=== PATIENT | female | born 1960 | race Caucasian/White ===

== ENCOUNTER 2017-03-30 15:22 | Inpatient (IN) | payer MEDICARE ==
[2017-03-30] MEDS ORDERED: DULCOLAX PR PRN (15:36)
[2017-03-30] MEDS ORDERED: MILK OF MAGNESIA PO PRN (15:36)
[2017-03-30] MEDS ORDERED: ZOFRAN IV PRN (15:36)
[2017-03-30] MEDS ORDERED: TYLENOL PO PRN (15:36)
[2017-03-30 19:19] LABS: Basophils % (Auto) 0.4 % (0.0-1.8); Eosinophils % (Auto) 0.1 % (0.0-4.3); Hematocrit 23.5 % (30.3-42.9); Lymphocytes # (Auto) 1.8 K/mm3 (1.2-5.4); Lymphocytes % (Auto) 20.8 % (13.4-35.0); Mean Corpuscular HGB Conc 34 % (30-34); Mean Corpuscular Hemoglobin 31 pg (28-32); Mean Corpuscular Volume 91 fl (79-97); Monocytes # (Auto) 0.4 K/mm3 (0.0-0.8); Monocytes % (Auto) 4.8 % (0.0-7.3); Platelet Count 436 K/mm3 (140-440); Red Blood Count 2.57 M/mm3 (3.65-5.03)
[2017-03-30 19:29] LABS: INR 1.46 (0.87-1.13)
[2017-03-30 19:46] LABS: Calcium 7.9 mg/dL (8.4-10.2)
[2017-03-30] MEDS: NORCO 5/325 PO PRN (20:00)
[2017-03-30] MEDS ORDERED: ROXICODONE PO PRN (20:38)
[2017-03-30] MEDS ORDERED: PROAIR IH PRN (20:38)
[2017-03-30] MEDS ORDERED: PERCOCET 5/325 PO PRN ×2 (20:38→21:47)
[2017-03-30] MEDS ORDERED: K-DUR PO ONE (20:57)
--- NOTE | 2017-03-30 20:59 | Event Note ---
Date: 03/30/17 56 year old female who has a hypercoagulable condition with HIV with RLE amputation with right groin infection and concern for patch and/or sartorius flap disruption. Hold Eliquis. Start heparin drip. Hypokalemia noted and nurse contacted me. Contacted Dr. Solano who will place orders for hypokalemia. Appreciate medical assistance. NPO after MN for operating room tomorrow.
[2017-03-30] MEDS ORDERED: PROVENTIL IH PRN (21:50)
[2017-03-30] MEDS: PLAVIX PO SCH (21:51)
[2017-03-30] MEDS: K-DUR PO SCH (21:52)
[2017-03-30] MEDS: LEVAQUIN PO SCH (21:52)
[2017-03-30] MEDS: HALFPRIN EC PO SCH (21:52)
[2017-03-30] MEDS: NEURONTIN PO SCH (21:53)
[2017-03-30] MEDS: HEPARIN/ 0.45% NACL-25,000 UNIT/500 ML 25,000 UNIT/500 ML BAG IV SCH (22:19)
[2017-03-30 22:29] LABS: Hematocrit 21.7 % (30.3-42.9); Hemoglobin 7.4 gm/dl (10.1-14.3)
[2017-03-30] MEDS ORDERED: MAGNESIUM SULFATE 1 GM in NACL 0.9% 50 ML IV ONE (23:00)
[2017-03-30] MEDS: TRICOR PO SCH (23:21)
[2017-03-31] MEDS: MS CONTIN ER PO PRN ×2 (00:05→20:43)
[2017-03-31] MEDS ORDERED: K-DUR PO ONE (02:27)
[2017-03-31] MEDS: NEURONTIN PO SCH ×3 (05:13→21:55)
--- NOTE | 2017-03-31 08:24 | Consultation ---
History of Present Illness - Reason for Consult Consult date: 03/30/17 Hyperkalemmia Requesting physician: MIGUEL BHATIA - History of Present Illness 56 YO Female with HIV, HLD, Hypercoagulable State on anticoagulation, PVD, Nicotine Dependence, CKD 3 admitted for vascular surgery. Consult placed by Dr. Bhatia for medical management. Pt seen and evaluated, and found to be in no acute distress. A review of patient labs revealed hypokalemia. Pt NPO after midnight for surgical intervention in AM. Pt denies fever, chills, CP, palpitations, NVD , syncope, BRBPR, or recent ill contacts. No reported nursing events. Past History Past Medical History: hyperlipidemia, other (PVD, Hypercoagulable State, ) Past Surgical History: Other ((bilateral lower extremity endovascular procedures , bilateral femoral endarterectomies and thrombectomies, RLE amputation) Social history: single, smoking. denies: alcohol abuse, prescription drug abuse Family history: hypertension Medications and Allergies Allergies Allergy/AdvReac Type Severity Reaction Status Date / Time No Known Allergies Allergy Verified 03/06/17 13:12 Home Medications Medication Instructions Recorded Confirmed Last Taken Type Albuterol Sulfate [Ventolin Hfa] 18 gm IH Q4H PRN 03/06/17 03/14/17 03/12/17 History Darunavir/Cobicistat [Prezcobix 1 each PO DAILY 03/06/17 03/21/17 03/14/17 06: 00 History 800 mg-150 mg Tablet] Dolutegravir Sodium [Tivicay] 50 mg PO DAILY 03/06/17 03/21/17 03/14/17 06:00 History Fenofibrate Nanocrystallized 145 mg PO DAILY 03/06/17 03/14/17 03/14/17 06:00 History [Fenofibrate] Fluticasone (Nf) [Flovent 220 1 puff INHALATION DAILY 03/06/17 03/14/17 History MCG/PUFF HFA] Lisinopril [Zestril TAB] 20 mg PO QDAY 03/06/17 03/14/17 03/14/17 06:00 History Morphine Sulfate [Morphine Sulfate 15 mg PO Q12HR 03/06/17 03/14/17 03/14/17 06: 00 History ER] NIFEdipine [Nifedipine ER] 60 mg PO DAILY 03/06/17 03/14/17 03/14/17 06:00 History Oxycodone HCl/Acetaminophen 1 each PO Q6HR PRN 03/06/17 03/14/17 03/14/17 06:00 History [Percocet 10/325 mg] lamiVUDine/ZIDOVUDINE [COMBIVIR 1 each PO BID 03/06/17 03/14/17 03/14/17 06:00 History 150-300 mg] Apixaban [Eliquis] 5 mg PO BID #60 tablet 03/09/17 03/14/17 03/14/17 06:00 Rx Gabapentin [Neurontin] 300 mg PO Q8HR #90 capsule 03/09/17 03/14/17 03/14/17 06: 00 Rx Aspirin EC [Aspirin Enteric Coated 81 mg PO QDAY tablet 03/24/17 Unknown Rx TAB] Clopidogrel [Plavix] 75 mg PO QDAY #30 tablet 03/24/17 Unknown Rx Levofloxacin [Levaquin TAB] 750 mg PO Q24H #14 tablet 03/24/17 Unknown Rx Potassium Chloride [K-Dur] 40 meq PO QDAY #14 tablet 03/24/17 Unknown Rx oxyCODONE /ACETAMINOPHEN [Percocet 1 tab PO Q4H PRN tablet 03/24/17 Unknown Rx 5/325 mg] Active Meds: Active Medications Acetaminophen (Tylenol) 650 mg PO Q4H PRN PRN Reason: Pain MILD(1-3)/Fever >100.5/LYNCH Acetaminophen/Hydrocodone Bitart ([place] 5/325) 2 each PO Q6H PRN PRN Reason: Pain, Moderate (4-6) Last Admin: 03/30/17 20:00 Dose: 2 each Albuterol (Proventil) 2.5 mg IH Q4HRT PRN PRN Reason: Shortness Of Breath Aspirin (Halfprin Ec) 81 mg PO QDAY [facility] Last Admin: 03/30/17 21:52 Dose: 81 mg Bisacodyl (Dulcolax) 10 mg [place] QDAY PRN PRN Reason: Constipation unrelieved by MOM Budesonide (Pulmicort) 0.5 mg IH Q12HRT [facility] Clopidogrel Bisulfate (Plavix) 75 mg PO QDAY [facility] Last Admin: 03/30/17 21:51 Dose: Not Given Fenofibrate (Tricor) 145 mg PO DAILY [facility] Last Admin: 03/30/17 23:21 Dose: 145 mg Gabapentin (Neurontin) 300 mg PO Q8HR [facility] Last Admin: 03/31/17 05:13 Dose: Not Given Sodium Chloride (Nacl 0.9% 1000 Ml) 1,000 mls @ 75 mls/hr IV DIRECT LANETTE Heparin Sodium/Sodium Chloride (Heparin/ 0.45% Nacl-25,000 Unit/500 Ml) 25,000 unit in 500 mls @ 20 mls/hr IV TITR LANETTE; 1,000 UNITS/HR PRN Reason: Protocol Last Admin: 03/30/17 22:19 Dose: 1,000 units/hr, 20 mls/hr Levofloxacin (Levaquin) 750 mg PO Q24HR [facility] Last Admin: 03/30/17 21:52 Dose: 750 mg Lisinopril (Zestril) 20 mg PO QDAY [facility] Magnesium Hydroxide (Milk Of Magnesia) 30 ml PO Q4H PRN PRN Reason: Constipation Miscellaneous Medication (Darunavir/Cobicistat [Prezcobix 800 Mg-150 Mg Tablet] ) 1 each PO DAILY [facility] Miscellaneous Medication (Dolutegravir Sodium [Tivicay]) 50 mg PO DAILY [facility] Miscellaneous Medication (Lamivudine/Zidovudine [Combivir 150-300 Mg]) 1 each PO BID [facility] Morphine Sulfate (Ms Contin Er) 15 mg PO BID PRN PRN Reason: Pain Last Admin: 03/31/17 00:05 Dose: 15 mg Nifedipine (Procardia Xl) 60 mg PO DAILY [facility] Ondansetron HCl (Zofran) 4 mg IV Q8H PRN PRN Reason: N/V unrelieved by Reglan Oxycodone HCl (Roxicodone) 5 mg PO Q6H PRN PRN Reason: Pain Oxycodone/Acetaminophen (Percocet 5/325) 1 tab PO Q4H PRN PRN Reason: Pain, Moderate (4-6) Oxycodone/Acetaminophen (Percocet 5/325) 1 tab PO Q4H PRN PRN Reason: Pain, Moderate (4-6) Potassium Chloride (K-Dur) 40 meq PO QDAY [facility] Last Admin: 03/30/17 21:52 Dose: 40 meq Review of Systems Constitutional: no weight loss, no weight gain, no fever Ears, nose, mouth and throat: no ear pain, no ear discharge, no tinnitis, no decreased hearing, no nose pain Breasts: no change in shape, no swelling, no mass Cardiovascular: no chest pain, no orthopnea, no palpitations, no rapid/ irregular heart beat, no edema, no syncope Respiratory: no cough, no cough with sputum, no excessive sputum, no hemoptysis , no shortness of breath Gastrointestinal: no nausea, no vomiting, no diarrhea, no constipation, no change in bowel habits Genitourinary Female: no dysmenorrhea, no pelvic pain, no flank pain, no menorrhagia, no dysuria Rectal: no pain, no incontinence, no bleeding Musculoskeletal: no neck stiffness, no neck pain, no shooting arm pain, no arm numbness/tingling, no low back pain Integumentary: no rash, no pruritis, no redness, no wounds, no jaundice, no boils Neurological: no head injury, no transient paralysis, no paralysis, no weakness , no parathesias Psychiatric: no anxiety, no memory loss, no change in sleep habits, no change in libido Endocrine: no cold intolerance, no heat intolerance, no polyphagia, no excessive thirst, no polydipsia, no polyuria Hematologic/Lymphatic: no easy bruising, no easy bleeding Allergic/Immunologic: no urticaria, no allergic rhinitis, no wheezing Exam - Constitutional General appearance: Present: no acute distress, well-nourished - EENT Eyes: Present: PERRL ENT: hearing intact, clear oral mucosa - Neck Neck: Present: supple, normal ROM - Respiratory Respiratory effort: normal Respiratory: bilateral: CTA - Cardiovascular Heart Sounds: Present: S1 & S2. Absent: rub, click - Extremities Extremities: pulses symmetrical, No edema Peripheral Pulses: within normal limits - Abdominal General gastrointestinal: Present: soft, non-tender, non-distended, normal bowel sounds Female genitourinary: Present: normal - Integumentary Integumentary: Present: clear, warm, dry - Musculoskeletal Musculoskeletal: gait normal, strength equal bilaterally - Psychiatric Psychiatric: appropriate mood/affect, intact judgment & insight - Neurologic Neurologic: CNII-XII intact, moves all extremities Results - Labs CBC & Chem 7: 03/30/17 21:56 03/31/17 06:12 Labs: Abnormal lab results 03/30/17 03/30/17 03/30/17 Range/Units 19:01 19:01 19:01 RBC 2.57 L (3.65-5.03) M/mm3 Hgb 8.0 L (10.1-14.3) gm/dl Hct 23.5 L (30.3-42.9) % RDW 16.0 H (13.2-15.2) % Seg Neutrophils % 73.9 H (40.0-70.0) % PT 18.5 H (12.2-14.9) Sec. INR 1.46 H (0.87-1.13) APTT (24.2-36.6) Sec. Heparin Anti-Xa Level (0.3-0.7) U.I./ml Potassium 2.8 L* (3.6-5.0) mmol/L Chloride (98-107) mmol/L Carbon Dioxide 14 L (22-30) mmol/L BUN 34 H (7-17) mg/dL Creatinine 2.0 H (0.7-1.2) mg/dL Glucose 105 H (65-100) mg/dL Calcium 7.9 L (8.4-10.2) mg/dL 03/30/17 03/30/17 03/30/17 Range/Units 19:01 21:56 23:26 RBC (3.65-5.03) M/mm3 Hgb 7.4 L (10.1-14.3) gm/dl Hct 21.7 L (30.3-42.9) % RDW (13.2-15.2) % Seg Neutrophils % (40.0-70.0) % PT (12.2-14.9) Sec. INR (0.87-1.13) APTT 47.9 H (24.2-36.6) Sec. Heparin Anti-Xa Level (0.3-0.7) U.I./ml Potassium 3.0 L (3.6-5.0) mmol/L Chloride (98-107) mmol/L Carbon Dioxide (22-30) mmol/L BUN (7-17) mg/dL Creatinine (0.7-1.2) mg/dL Glucose (65-100) mg/dL Calcium (8.4-10.2) mg/dL 03/31/17 03/31/17 Range/Units 06:12 06:12 RBC (3.65-5.03) M/mm3 Hgb (10.1-14.3) gm/dl Hct (30.3-42.9) % RDW (13.2-15.2) % Seg Neutrophils % (40.0-70.0) % PT (12.2-14.9) Sec. INR (0.87-1.13) APTT (24.2-36.6) Sec. Heparin Anti-Xa Level 1.57 H (0.3-0.7) U.I./ml Potassium (3.6-5.0) mmol/L Chloride 109.8 H (98-107) mmol/L Carbon Dioxide 16 L (22-30) mmol/L BUN 26 H (7-17) mg/dL Creatinine 1.4 H (0.7-1.2) mg/dL Glucose (65-100) mg/dL Calcium 8.0 L (8.4-10.2) mg/dL Assessment and Plan - Patient Problems (1) Hypokalemia Current Visit: Yes Status: Acute Plan to address problem: Repleted, IV magnesium, serial potassium levels, (2) HIV (human immunodeficiency virus infection) Current Visit: Yes Status: Acute Plan to address problem: Resume anitretroviral therapy, outpatient ID F/U care.
[2017-03-31] MEDS ORDERED: NACL 0.9% 500 ML 500 ML ONE (09:13)
[2017-03-31] MEDS ORDERED: MARCAINE 0.5% INFILTRATI ONE (09:13)
[2017-03-31] MEDS ORDERED: BACITRACIN ONE (09:13)
[2017-03-31] MEDS ORDERED: HEPARIN 10,000 UNITS/10 ML ONE (09:13)
[2017-03-31] MEDS: PULMICORT IH SCH ×2 (09:29→19:31)
--- NOTE | 2017-03-31 09:43 | Anesthesia Consultation ---
Anesthesia Consult and Med Hx Date of service: 03/31/17 - Airway Anesthetic Teeth Evaluation: Good ROM Head & Neck: Adequate Mental/Hyoid Distance: Adequate Mallampati Class: Class III Intubation Access Assessment: Probably Good - Pulmonary Exam CTA: Yes - Cardiac Exam Cardiac Exam: RRR - Pre-Operative Health Status ASA Pre-Surgery Classification: ASA4 Proposed Anesthetic Plan: General - Pulmonary Hx Asthma: Yes COPD: No - Cardiovascular System Hx Hypertension: Yes Hx Heart Attack/AMI: No Hx Pacemaker: No Hx Internal Defibrillator: No Hx Peripheral Vascular Disease: Yes (s/p thrombectomy, angioplasty) - Central Nervous System Hx Seizures: No Hx Psychiatric Problems: No - Endocrine Hx Renal Disease: Yes (stage 3. NOT ON DIALYSIS) Hx Liver Disease: Yes - Hematic Hx Anemia: Yes Hx Sickle Cell Disease: No - Additional Comments Anesthesia Medical History Comments: h/o HIV, HLD, lupus anticoagulant- hypercoaguable state on anticoag, PVD,CKD stage 3, anemia
--- NOTE | 2017-03-31 09:44 | Anesthesia Day of Surgery ---
Anesthesia Day of Surgery - Day of Surgery Patient Examined: Yes Patient H&P Reviewed: Yes Patient is NPO: Yes
[2017-03-31] MEDS ORDERED: XYLOCAINE MPF 2% ONE (09:46)
[2017-03-31] MEDS ORDERED: SUBLIMAZE ONE (09:46)
[2017-03-31] MEDS ORDERED: DIPRIVAN 10 MG/ML IV ONE (09:47)
[2017-03-31] MEDS: PLAVIX PO SCH (10:00)
[2017-03-31] MEDS: LEVAQUIN PO SCH (10:00)
[2017-03-31] MEDS: HALFPRIN EC PO SCH (10:00)
[2017-03-31] MEDS: ZESTRIL PO SCH (10:00)
[2017-03-31] MEDS ORDERED: FLUTICASONE INHALATION SCH (10:00)
[2017-03-31] MEDS: PROCARDIA XL PO SCH (10:00)
[2017-03-31] MEDS ORDERED: NACL 0.9% 500 ML 500 ML IV ONE (10:13)
[2017-03-31] MEDS ORDERED: NACL 0.9% IR ONE ×2 (11:03→11:31)
[2017-03-31] MEDS ORDERED: NEO SYNEPHRINE/NS Syringe(OR USE) IV ONE (12:21)
--- NOTE | 2017-03-31 12:22 | Post Operative Note ---
Pre-op diagnosis: infected, necrotic right groin incision (sequelae postoperative wound infec Post-op diagnosis: same Findings: Partial necrosis of the sartorius flap successfully debrided back to viable tissue. Large soft tissue hematoma and necrotic fat fascia and muscle right groin. The artery appears covered with granulation tissue. No evidence for direct connection to the artery did successful debridement of necrotic tissue retained hematoma muscle and fascia leaving an 18 I 8 x 5 cm defect in the right groin. Remaining tissue appears viable. Procedure: Debridement of skin/subcutaneous tissue/muscle and fascia right groin 18 cm x 8 cm x 5 cm defect with pulse lavage irrigation Anesthesia: MARYSOL Surgeon: CECI FIGUEREDO Clinic Clerk: RAQUEL HUERTA Estimated blood loss: 50-100ml Pathology: list (old retained hematoma, necrotic muscle fascia soft tissue and skin) Specimen disposition: to lab Condition: stable Disposition: floor
[2017-03-31] MEDS ORDERED: ZOFRAN ONE (12:24)
[2017-03-31] MEDS: DILAUDID IV PRN ×3 (13:03→13:26)
--- NOTE | 2017-03-31 13:18 | Operative Report ---
PREOPERATIVE DIAGNOSIS: Necrotic right groin with sequelae from surgical site infection. POSTOPERATIVE DIAGNOSIS: Necrotic right groin with sequelae from surgical site infection. OPERATIVE PROCEDURE: 1.Debridement of skin, subcutaneous tissue, muscle and fascia. An 8 x 18 x 5 cm by volume groin defect. 2.Pulse irrigation lavage. SURGEON: Pérze Nj MD MEDICAL MANAGEMENT TRAINER: Daniel Villatoro PA-C. ANESTHESIA: General. ESTIMATED BLOOD LOSS: Less 100 mL. The patient's condition improved. COMPLICATIONS: None. INSTRUMENT COUNTS: Correct. SPECIMENS: Necrotic material and muscle sent for deep tissue cultures. SURGICAL DETAILS: The patient in supine position. After adequate levels of general endotracheal anesthesia was obtained the right groin and the entire extremity was then prepped and draped using standard sterile technique. Using a combination of sharp and blunt dissection including Metzenbaums 15-blade, I was able to carefully tease off the tissue without initiating any more bleeding. Large amount of retained hematoma was removed. sartorius muscle was debrided back to viable tissue. I sequentially went throughout the entire incision getting progressively deeper with removal of all thrombus and soft tissue. The base of the incision appeared to be granulating throughout. I was able to palpate a proximal common femoral artery pulse near the apex of the incision and could listen by Doppler to the level of the superficial femoral artery occlusion. This entire area was covered with dense granulation tissue and did not unroof it down to the graft, cut into the vein graft for fear of uncovering and precipitating a hemorrhage that would be difficult to control if at all. There was one little area that was worrisome for previous bleed, but after manipulating this area completely and removing any necrotic material I could not convince myself that it communicated directly with the vein patch below. There was no arterial pulse or Doppler signal underneath this area and I felt that it did not represent an active risk of bleeding. I was concerned that if I did uncover the artery from all the surrounding inflammatory tissue that it would potentially open enough for the need to replace the entire vessel and we did not have a viable alternative to what she had at this point. 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 I thus left this one little area alone and did not see any active bleeding throughout the remainder of the procedure. Again, radical debridement of all necrotic material was performed and that material was sent for deep tissue cultures. I then used approximately 2 liters of pulse lavage irrigation until the entire area was beefy red. Pictures were taken. I then applied a wound VAC to the area and then the patient was extubated and returned to recovery in stable condition having tolerated the procedure well. Sponge and needle counts were correct. JOB# [id number] RAFAELA/NTS
--- NOTE | 2017-03-31 13:50 | Post Anesthesia Evaluation ---
- Post Anesthesia Evaluation Patient Participated: Yes Airway Patent: Yes Stable Respiratory Function: Yes Nausea/Vomiting: No Temp > 96.8F: Yes Pain Manageable: Yes Adequeate Hydration: Yes Anesthesia Complications: No
[2017-03-31 14:06] LABS: Hematocrit 20.8 % (30.3-42.9); Hemoglobin 6.9 gm/dl (10.1-14.3); Mean Corpuscular HGB Conc 33 % (30-34); Mean Corpuscular Hemoglobin 31 pg (28-32); Mean Corpuscular Volume 95 fl (79-97); Platelet Count 342 K/mm3 (140-440); Red Blood Count 2.19 M/mm3 (3.65-5.03); Red Cell Distribution Width 16.9 % (13.2-15.2)
[2017-03-31] MEDS: TRICOR PO SCH (14:30)
--- NOTE | 2017-03-31 16:03 | Progress Note ---
Assessment and Plan Assessment and plan: 56 YO Female with HIV, HLD, Hypercoagulable State on anticoagulation, PVD, Nicotine Dependence, CKD 3 admitted for vascular surgery. Consult placed by Dr. Reyes for medical management. On admission labs revealed hypokalemia. went through a successful incision of infected, necrotic right groin incision noted to have a Large soft tissue hematoma and necrotic fat fascia and muscle right groin. The artery appears covered with granulation tissue. Infected Necrotic Groin * s/p excision. Vascular following, Wound vac in place. * Pain control per vascular Right BKA * Mears in place * Fall precautions Severe Blood loss Anemia * Transfuse PRBC 2 units. Recheck H/H Hypokalemia * Replaced and resolved HLD * Continue statin HIV * Continue meds Hypercoagulable state * Resume Heparin drip per vascular. Monitor H/H Severe PVD * As noted above. DVT/GI prophy History Interval history: Patient seen and examined this afternoon in no acute distress at this time. Still reports some pain. Wound VAC is in place did have some low blood counts which were replaced. Hospitalist Physical - Physical exam Narrative exam: VITAL SIGNS: Reviewed. GENERAL: The patient appeared well nourished and normally developed. Vital signs as documented. HEAD: No signs of head trauma. EYES: Pupils are equal. Extraocular motions intact. EARS: Hearing grossly intact. MOUTH: Oropharynx is normal. NECK: No adenopathy, no JVD. CHEST: Chest with clear breath sounds bilaterally. No wheezes, rales, or rhonchi. CARDIAC: Regular rate and rhythm. S1 and S2, without murmurs, gallops, or rubs. VASCULAR: No Edema. Peripheral pulses normal and equal in all extremities. ABDOMEN: Soft, without detectable tenderness. No sign of distention. No rebound or guarding, and no masses palpated. Bowel Sounds normal. MUSCULOSKELETAL: Right BKA. Extremities without clubbing, cyanosis or edema. NEUROLOGIC EXAM: Alert and oriented x 3. No focal sensory or strength deficits. Speech normal. Follows commands. PSYCHIATRIC: Mood normal. SKIN: Groin dressing in place. Right BKA sutures intact - Constitutional Vitals: Temp Pulse Resp BP Pulse Ox 98.1 F 97 H 18 111/60 98 03/31/17 13:45 03/31/17 13:45 03/31/17 13:45 03/31/17 13:45 03/31/17 13:45 General appearance: Present: no acute distress, well-nourished Results - Labs CBC & Chem 7: 03/31/17 13:44 03/31/17 06:12 Labs: Laboratory Last Values WBC 6.8 K/mm3 (4.5-11.0) 03/31/17 13:44 RBC 2.19 M/mm3 (3.65-5.03) L 03/31/17 13:44 Hgb 6.9 gm/dl (10.1-14.3) L 03/31/17 13:44 Hct 20.8 % (30.3-42.9) L 03/31/17 13:44 MCV 95 fl (79-97) 03/31/17 13:44 MCH 31 pg (28-32) 03/31/17 13:44 MCHC 33 % (30-34) 03/31/17 13:44 RDW 16.9 % (13.2-15.2) H 03/31/17 13:44 Plt Count 342 K/mm3 (140-440) 03/31/17 13:44 Lymph % (Auto) 20.8 % (13.4-35.0) 03/30/17 19:01 [place] % (Auto) 4.8 % (0.0-7.3) 03/30/17 19:01 Eos % (Auto) 0.1 % (0.0-4.3) 03/30/17 19:01 Baso % (Auto) 0.4 % (0.0-1.8) 03/30/17 19:01 Lymph # 1.8 K/mm3 (1.2-5.4) 03/30/17 19:01 [place] # 0.4 K/mm3 (0.0-0.8) 03/30/17 19:01 Eos # 0.0 K/mm3 (0.0-0.4) 03/30/17 19:01 Baso # 0.0 K/mm3 (0.0-0.1) 03/30/17 19:01 Seg Neutrophils % 73.9 % (40.0-70.0) H 03/30/17 19:01 Seg Neutrophils # 6.4 K/mm3 (1.8-7.7) 03/30/17 19:01 PT 18.5 Sec. (12.2-14.9) H 03/30/17 19:01 INR 1.46 (0.87-1.13) H 03/30/17 19:01 APTT 47.9 Sec. (24.2-36.6) H 03/30/17 19:01 Heparin Anti-Xa Level 1.57 U.I./ml (0.3-0.7) H 03/31/17 06:12 Sodium 140 mmol/L (137-145) 03/31/17 06:12 Potassium 3.8 mmol/L (3.6-5.0) D 03/31/17 06:12 Chloride 109.8 mmol/L (98-107) H 03/31/17 06:12 Carbon Dioxide 16 mmol/L (22-30) L 03/31/17 06:12 Anion Gap 18 mmol/L 03/31/17 06:12 BUN 26 mg/dL (7-17) H 03/31/17 06:12 Creatinine 1.4 mg/dL (0.7-1.2) H 03/31/17 06:12 Estimated GFR 39 ml/min 03/31/17 06:12 BUN/Creatinine Ratio 19 % 03/31/17 06:12 Glucose 81 mg/dL (65-100) 03/31/17 06:12 Calcium 8.0 mg/dL (8.4-10.2) L 03/31/17 06:12 Prealbumin 0.090 g/L (0.200-0.400) L 03/31/17 13:44 Blood Type O POSITIVE 03/31/17 10:12 Antibody Screen Negative 03/31/17 10:12 Crossmatch See Detail 03/31/17 10:12
[2017-03-31] MEDS ORDERED: NACL 0.9% 500 ML 0 ML ONE (16:30)
[2017-03-31] MEDS: HEPARIN/ 0.45% NACL-25,000 UNIT/500 ML 25,000 UNIT/500 ML BAG IV SCH (23:30)
[2017-04-01] MEDS: NORCO 5/325 PO PRN ×2 (00:07→09:02)
[2017-04-01] MEDS: K-DUR PO SCH ×2 (02:51→09:04)
[2017-04-01] MEDS: NEURONTIN PO SCH ×3 (05:22→22:08)
[2017-04-01] MEDS: NACL 0.9% 1000 ML 1,000 ML IV SCH ×2 (05:22→18:17)
[2017-04-01 07:37] LABS: Hematocrit 28.6 % (30.3-42.9); Hemoglobin 9.6 gm/dl (10.1-14.3); Mean Corpuscular HGB Conc 34 % (30-34); Mean Corpuscular Hemoglobin 31 pg (28-32); Mean Corpuscular Volume 92 fl (79-97); Platelet Count 312 K/mm3 (140-440); Red Blood Count 3.09 M/mm3 (3.65-5.03); Red Cell Distribution Width 16.1 % (13.2-15.2)
[2017-04-01 07:54] LABS: Calcium 8.2 mg/dL (8.4-10.2)
[2017-04-01] MEDS: PULMICORT IH SCH ×3 (08:00→21:21)
[2017-04-01] MEDS: PLAVIX PO SCH (09:01)
[2017-04-01] MEDS: HALFPRIN EC PO SCH (09:01)
[2017-04-01] MEDS: TRICOR PO SCH (09:02)
[2017-04-01] MEDS: MS CONTIN ER PO PRN ×2 (09:02→22:07)
[2017-04-01] MEDS: PROCARDIA XL PO SCH (09:02)
[2017-04-01] MEDS: LEVAQUIN PO SCH (09:02)
[2017-04-01] MEDS: ELIQUIS PO SCH ×2 (09:03→22:06)
[2017-04-01] MEDS: ZESTRIL PO SCH (09:03)
--- NOTE | 2017-04-01 15:46 | Progress Note ---
Assessment and Plan The patient is doing well postoperatively. She will need discharge to a rehabilitation facility. The patient is not currently receiving her HIV medications. She does have packets of medications which do include her HIV home meds. These will need to be sent to the pharmacy so her HIV meds may be given to her. Subjective Date of service: 04/01/17 Interval history: Patient seen and examined. Her wound VAC is in place and she feels much better. She is still on a heparin drip. We'll transition to Eliquis tomorrow. She will likely need discharge to either long or short-term rehabilitation facility. Objective - Constitutional Vitals: Vital Signs - 12hr 04/01/17 04/01/17 05:03 08:25 Temperature 98.5 F 99.0 F Pulse Rate 94 H 101 H Respiratory 16 20 Rate Blood Pressure 147/75 122/59 O2 Sat by Pulse 99 100 Oximetry General appearance: Present: no acute distress - EENT Eyes: PERRL ENT: hearing intact - Neck Neck: supple, normal ROM - Respiratory Respiratory effort: normal - Breasts Breasts: deferred Extremities: abnormal - Gastrointestinal General gastrointestinal: Present: deferred - Genitourinary Female genitourinary: deferred - Integumentary Integumentary: clear - Musculoskeletal Musculoskeletal: strength equal bilaterally - Psychiatric Psychiatric: appropriate mood/affect, cooperative - Labs CBC & Chem 7: 04/01/17 07:10 04/01/17 07:10 Labs: Abnormal lab results 03/31/17 03/31/17 04/01/17 Range/Units 10:12 13:44 07:10 RBC 3.09 L (3.65-5.03) M/mm3 Hgb 9.6 L (10.1-14.3) gm/dl Hct 28.6 L D (30.3-42.9) % RDW 16.1 H (13.2-15.2) % Chloride (98-107) mmol/L Carbon Dioxide (22-30) mmol/L BUN (7-17) mg/dL Calcium (8.4-10.2) mg/dL Prealbumin 0.090 L (0.200-0.400) g/L Crossmatch See Detail 04/01/17 Range/Units 07:10 RBC (3.65-5.03) M/mm3 Hgb (10.1-14.3) gm/dl Hct (30.3-42.9) % RDW (13.2-15.2) % Chloride 110.5 H (98-107) mmol/L Carbon Dioxide 16 L (22-30) mmol/L BUN 18 H (7-17) mg/dL Calcium 8.2 L (8.4-10.2) mg/dL Prealbumin (0.200-0.400) g/L Crossmatch
--- NOTE | 2017-04-01 17:04 | Progress Note ---
Assessment and Plan Assessment and Plan Assessment and plan: 56 YO Female with HIV, HLD, Hypercoagulable State on anticoagulation, PVD, Nicotine Dependence, CKD 3 admitted for vascular surgery. Consult placed by Dr. Reyes for medical management. On admission labs revealed hypokalemia. went through a successful incision of infected, necrotic right groin incision noted to have a Large soft tissue hematoma and necrotic fat fascia and muscle right groin. The artery appears covered with granulation tissue. Infected Necrotic Groin * s/p excision. Vascular following, Wound vac in place. * Pain control per vascular * Wound vac ordered Right BKA * Michelle in place * Fall precautions Severe Blood loss Anemia * Transfuse PRBC 2 units. Recheck H/H Hypokalemia * Replaced and resolved HLD * Continue statin HIV * Continue meds Hypercoagulable state * Resume Heparin drip per vascular. Monitor H/H Severe PVD * As noted above. DVT/GI prophy Subjective Date of service: 04/01/17 Principal diagnosis: Rt Inguinal Necrotic infected lesion Interval history: Sx better Objective - Constitutional Vitals: Vital Signs - 12hr 04/01/17 08:25 Temperature 99.0 F Pulse Rate 101 H Respiratory 20 Rate Blood Pressure 122/59 O2 Sat by Pulse 100 Oximetry General appearance: Present: no acute distress, well-nourished - EENT Eyes: PERRL, EOM intact ENT: hearing intact, clear oral mucosa Ears: bilateral: normal - Neck Neck: supple, normal ROM - Respiratory Respiratory effort: normal Respiratory: bilateral: CTA - Breasts Breasts: normal - Cardiovascular Rhythm: regular Heart Sounds: Present: S1 & S2. Absent: gallop, rub Extremities: pulses intact, No edema, normal color, Full ROM - Gastrointestinal General gastrointestinal: Present: soft, non-tender, non-distended, normal bowel sounds - Genitourinary Female genitourinary: normal - Integumentary Integumentary: clear, warm, dry - Musculoskeletal Musculoskeletal: 1, strength equal bilaterally - Neurologic Neurologic: moves all extremities - Psychiatric Psychiatric: memory intact, appropriate mood/affect, intact judgment & insight - Labs CBC & Chem 7: 04/03/17 06:39 04/03/17 06:39 Labs: Abnormal lab results 03/31/17 04/01/17 04/01/17 Range/Units 10:12 07:10 07:10 RBC 3.09 L (3.65-5.03) M/mm3 Hgb 9.6 L (10.1-14.3) gm/dl Hct 28.6 L D (30.3-42.9) % RDW 16.1 H (13.2-15.2) % Chloride 110.5 H (98-107) mmol/L Carbon Dioxide 16 L (22-30) mmol/L BUN 18 H (7-17) mg/dL Calcium 8.2 L (8.4-10.2) mg/dL Crossmatch See Detail
[2017-04-02 06:04] LABS: Basophils % (Auto) 0.6 % (0.0-1.8); Eosinophils # (Auto) 0.1 K/mm3 (0.0-0.4); Eosinophils % (Auto) 0.9 % (0.0-4.3); Hematocrit 26.5 % (30.3-42.9); Hemoglobin 8.9 gm/dl (10.1-14.3); Lymphocytes # (Auto) 2.2 K/mm3 (1.2-5.4); Lymphocytes % (Auto) 33.9 % (13.4-35.0); Mean Corpuscular HGB Conc 34 % (30-34); Mean Corpuscular Hemoglobin 31 pg (28-32); Mean Corpuscular Volume 92 fl (79-97); Monocytes # (Auto) 0.4 K/mm3 (0.0-0.8); Platelet Count 280 K/mm3 (140-440); Red Blood Count 2.88 M/mm3 (3.65-5.03); Red Cell Distribution Width 16.1 % (13.2-15.2)
[2017-04-02 06:41] LABS: Albumin 2.1 g/dL (3.9-5); BUN/Creatinine Ratio 13; Blood Urea Nitrogen 12 mg/dL (7-17); Calcium 7.7 mg/dL (8.4-10.2); Hemolysis Index 91
[2017-04-02] MEDS: NACL 0.9% 1000 ML 1,000 ML IV SCH ×2 (07:23→20:41)
[2017-04-02] MEDS: NEURONTIN PO SCH ×3 (07:23→22:57)
[2017-04-02 07:26] LABS: Alanine Aminotransferase 5 units/L (7-56)
[2017-04-02] MEDS: HALFPRIN EC PO SCH (09:44)
[2017-04-02] MEDS: ZESTRIL PO SCH (09:44)
[2017-04-02] MEDS: LEVAQUIN PO SCH (09:44)
[2017-04-02] MEDS: PLAVIX PO SCH (09:44)
[2017-04-02] MEDS: PROCARDIA XL PO SCH (09:45)
[2017-04-02] MEDS: TRICOR PO SCH (09:45)
[2017-04-02] MEDS: K-DUR PO SCH (09:45)
[2017-04-02] MEDS: PULMICORT IH SCH ×2 (10:34→20:35)
--- NOTE | 2017-04-02 11:57 | Progress Note ---
Assessment and Plan Patient is doing well following debridement and placement of a wound VAC. She will need referral to long-term or short-term rehabilitation and appropriate wound care following her discharge. She is currently awaiting placement. Subjective Date of service: 04/02/17 Interval history: Doing well, no complaints. Objective - Constitutional Vitals: Vital Signs - 12hr 04/02/17 07:41 Temperature 98.3 F Pulse Rate 82 Respiratory 18 Rate Blood Pressure 110/52 O2 Sat by Pulse 99 Oximetry General appearance: Present: no acute distress - EENT Eyes: PERRL, EOM intact ENT: hearing intact - Neck Neck: supple, normal ROM - Respiratory Respiratory effort: normal Extremities: abnormal Extremity abnormal: edema - Gastrointestinal General gastrointestinal: Present: deferred - Neurologic Neurologic: no focal deficits - Psychiatric Psychiatric: appropriate mood/affect, cooperative - Labs CBC & Chem 7: 04/02/17 05:33 04/02/17 05:33 Labs: Abnormal lab results 04/02/17 04/02/17 04/02/17 Range/Units 05:33 05:33 06:42 RBC 2.88 L (3.65-5.03) M/mm3 Hgb 8.9 L (10.1-14.3) gm/dl Hct 26.5 L (30.3-42.9) % RDW 16.1 H (13.2-15.2) % Heparin Anti-Xa Level > 2.00 H (0.3-0.7) U.I./ml Chloride 110.4 H (98-107) mmol/L Carbon Dioxide 16 L (22-30) mmol/L Calcium 7.7 L (8.4-10.2) mg/dL ALT 5 L (7-56) units/L Total Protein 5.1 L (6.3-8.2) g/dL Albumin 2.1 L (3.9-5) g/dL
[2017-04-02] MEDS: ELIQUIS PO SCH ×2 (13:23→22:57)
[2017-04-02] MEDS: NORCO 5/325 PO PRN ×2 (13:23→20:41)
--- NOTE | 2017-04-02 16:07 | Progress Note ---
Assessment and Plan Assessment and Plan Assessment and plan: 56 YO Female with HIV, HLD, Hypercoagulable State on anticoagulation, PVD, Nicotine Dependence, CKD 3 admitted for vascular surgery. Consult placed by Dr. Reyes for medical management. On admission labs revealed hypokalemia. went through a successful incision of infected, necrotic right groin incision noted to have a Large soft tissue hematoma and necrotic fat fascia and muscle right groin. The artery appears covered with granulation tissue. Infected Necrotic Groin * s/p excision. Vascular following, Wound vac in place. * Pain control per vascular * Wound vac in place Right BKA * Shelby in place * Fall precautions Severe Blood loss Anemia * Transfused PRBC 2 units Hypokalemia * Replaced and resolved HLD * Continue statin HIV * Continue meds Hypercoagulable state * Resume Heparin drip per vascular. Monitor H/H Severe PVD * As noted above. DVT/GI prophy Discharge plan-to SNF for wound care and PT/OT Case management consult requested Subjective Date of service: 04/02/17 Principal diagnosis: Rt Groin infected necrotic lesion Interval history: Sx better Objective - Constitutional Vitals: Vital Signs - 12hr 04/02/17 07:41 Temperature 98.3 F Pulse Rate 82 Respiratory 18 Rate Blood Pressure 110/52 O2 Sat by Pulse 99 Oximetry General appearance: Present: no acute distress, well-nourished - EENT Eyes: PERRL, EOM intact ENT: hearing intact, clear oral mucosa Ears: bilateral: normal - Neck Neck: supple, normal ROM - Respiratory Respiratory effort: normal Respiratory: bilateral: CTA - Breasts Breasts: normal - Cardiovascular Rhythm: regular Heart Sounds: Present: S1 & S2. Absent: gallop, rub Extremities: pulses intact, No edema, normal color, Full ROM - Gastrointestinal General gastrointestinal: Present: soft, non-tender, non-distended, normal bowel sounds - Genitourinary Female genitourinary: normal - Integumentary Integumentary: clear, warm, dry - Musculoskeletal Musculoskeletal: 1, strength equal bilaterally - Neurologic Neurologic: moves all extremities - Psychiatric Psychiatric: memory intact, appropriate mood/affect, intact judgment & insight - Labs CBC & Chem 7: 04/03/17 06:39 04/03/17 06:39 Labs: Abnormal lab results 02/03/18 02/03/18 02/03/18 Range/Units 05:33 05:33 06:42 RBC 2.88 L (3.65-5.03) M/mm3 Hgb 8.9 L (10.1-14.3) gm/dl Hct 26.5 L (30.3-42.9) % RDW 16.1 H (13.2-15.2) % Heparin Anti-Xa Level > 2.00 H (0.3-0.7) U.I./ml Chloride 110.4 H (98-107) mmol/L Carbon Dioxide 16 L (22-30) mmol/L Calcium 7.7 L (8.4-10.2) mg/dL ALT 5 L (7-56) units/L Total Protein 5.1 L (6.3-8.2) g/dL Albumin 2.1 L (3.9-5) g/dL
[2017-04-02] MEDS: LAMIVUDINE PO SCH (22:57)
[2017-04-02] MEDS: ZIDOVUDINE PO SCH (22:57)
[2017-04-03] MEDS: NEURONTIN PO SCH ×3 (06:34→23:43)
[2017-04-03] MEDS: NORCO 5/325 PO PRN ×3 (07:03→23:37)
[2017-04-03 07:17] LABS: Basophils % (Auto) 0.6 % (0.0-1.8); Eosinophils # (Auto) 0.1 K/mm3 (0.0-0.4); Eosinophils % (Auto) 1.1 % (0.0-4.3); Hemoglobin 9.4 gm/dl (10.1-14.3); Lymphocytes # (Auto) 1.7 K/mm3 (1.2-5.4); Lymphocytes % (Auto) 30.1 % (13.4-35.0); Mean Corpuscular HGB Conc 34 % (30-34); Mean Corpuscular Hemoglobin 31 pg (28-32); Mean Corpuscular Volume 92 fl (79-97); Monocytes # (Auto) 0.3 K/mm3 (0.0-0.8); Monocytes % (Auto) 5.4 % (0.0-7.3); Platelet Count 275 K/mm3 (140-440); Red Blood Count 3.05 M/mm3 (3.65-5.03)
[2017-04-03 07:36] LABS: BUN/Creatinine Ratio 13; Blood Urea Nitrogen 10 mg/dL (7-17); Calcium 7.9 mg/dL (8.4-10.2); Hemolysis Index 1
--- NOTE | 2017-04-03 10:13 | Progress Note ---
Assessment and Plan Patient will need to have appropriate wound care with scheduled wound VAC changes. She will need placement in a long-term rehabilitation facility. Subjective Date of service: 04/03/17 Interval history: Patient complaining of right leg pain. Wound VAC with broken seal. Her wound VAC was re-sealed with Tegaderm along the areas of leakage and once re-applied, the patient's leg pain went away. The patient also complains of left using from her incision. Her bandage was removed and 2 punctate areas of miniscule drainage were noted on the bandage. The underlying incision is soft with no expressible material. Objective - Constitutional Vitals: Vital Signs - 12hr 04/02/17 04/03/17 23:27 08:11 Temperature 99.7 F H 99.0 F Pulse Rate 89 84 Respiratory 18 16 Rate Blood Pressure 127/60 159/72 O2 Sat by Pulse 97 97 Oximetry General appearance: Present: no acute distress - EENT Eyes: PERRL, EOM intact ENT: hearing intact Ears: bilateral: normal - Neck Neck: supple, normal ROM - Respiratory Respiratory effort: normal - Breasts Breasts: deferred Extremities: abnormal - Gastrointestinal General gastrointestinal: Present: deferred - Genitourinary Female genitourinary: deferred - Neurologic Neurologic: no focal deficits - Psychiatric Psychiatric: appropriate mood/affect, cooperative - Labs CBC & Chem 7: 04/03/17 06:39 04/03/17 06:39 Labs: Abnormal lab results 04/03/17 04/03/17 Range/Units 06:39 06:39 RBC 3.05 L (3.65-5.03) M/mm3 Hgb 9.4 L (10.1-14.3) gm/dl Hct 28.0 L (30.3-42.9) % RDW 16.0 H (13.2-15.2) % Chloride 111.5 H (98-107) mmol/L Carbon Dioxide 18 L (22-30) mmol/L Calcium 7.9 L (8.4-10.2) mg/dL
[2017-04-03] MEDS: NON-FORMULARY (Dolutegravir Sodium [Tivicay] 50 MG) PO SCH ×5 (10:44→10:51)
[2017-04-03] MEDS: NON-FORMULARY (Darunavir/Cobicistat [Prezcobix 800 Mg-150 Mg Tablet] 1 EACH) PO SCH ×4 (10:44→10:49)
[2017-04-03] MEDS: ZIDOVUDINE PO SCH ×11 (10:45→23:40)
[2017-04-03] MEDS: LAMIVUDINE PO SCH ×11 (10:45→23:40)
[2017-04-03] MEDS: K-DUR PO SCH (10:52)
[2017-04-03] MEDS: ELIQUIS PO SCH ×2 (10:52→23:38)
[2017-04-03] MEDS: PROCARDIA XL PO SCH (10:52)
[2017-04-03] MEDS: TRICOR PO SCH (10:52)
[2017-04-03] MEDS: ZESTRIL PO SCH (10:52)
[2017-04-03] MEDS: PLAVIX PO SCH (10:52)
[2017-04-03] MEDS: HALFPRIN EC PO SCH (10:52)
[2017-04-03] MEDS: LEVAQUIN PO SCH (10:52)
[2017-04-03] MEDS: NACL 0.9% 1000 ML 1,000 ML IV SCH (11:02)
[2017-04-03] MEDS: PULMICORT IH SCH ×2 (13:09→19:44)
--- NOTE | 2017-04-03 18:17 | Progress Note ---
Assessment and Plan Assessment and Plan Assessment and plan: 56 YO Female with HIV, HLD, Hypercoagulable State on anticoagulation, PVD, Nicotine Dependence, CKD 3 admitted for vascular surgery. Consult placed by Dr. Reyes for medical management. On admission labs revealed hypokalemia. went through a successful incision of infected, necrotic right groin incision noted to have a Large soft tissue hematoma and necrotic fat fascia and muscle right groin. The artery appears covered with granulation tissue. Infected Necrotic Groin * s/p excision. Vascular following, Wound vac in place. * Pain control per vascular * Wound vac ordered Right BKA * Michelle in place * Fall precautions Severe Blood loss Anemia * Transfused PRBC 2 units Hypokalemia * Replaced and resolved HLD * Continue statin HIV * Continue meds Hypercoagulable state * Resume Heparin drip per vascular. Monitor H/H Severe PVD * As noted above. DVT/GI prophy Subjective Date of service: 04/03/17 Interval history: Sx better Objective - Constitutional Vitals: Vital Signs - 12hr 04/03/17 04/03/17 08:11 16:03 Temperature 99.0 F 98.8 F Pulse Rate 84 Respiratory 16 18 Rate Blood Pressure 159/72 105/54 O2 Sat by Pulse 97 Oximetry General appearance: Present: no acute distress, well-nourished - EENT Eyes: PERRL, EOM intact ENT: hearing intact, clear oral mucosa Ears: bilateral: normal - Neck Neck: supple, normal ROM - Respiratory Respiratory effort: normal Respiratory: bilateral: CTA - Breasts Breasts: normal - Cardiovascular Rhythm: regular Heart Sounds: Present: S1 & S2. Absent: gallop, rub Extremities: pulses intact, No edema, normal color, Full ROM - Gastrointestinal General gastrointestinal: Present: soft, non-tender, non-distended, normal bowel sounds - Genitourinary Female genitourinary: normal - Integumentary Integumentary: clear, warm, dry - Musculoskeletal Musculoskeletal: 1, strength equal bilaterally - Neurologic Neurologic: moves all extremities - Psychiatric Psychiatric: memory intact, appropriate mood/affect, intact judgment & insight - Labs CBC & Chem 7: 04/03/17 06:39 04/03/17 06:39 Labs: Abnormal lab results 04/03/17 04/03/17 Range/Units 06:39 06:39 RBC 3.05 L (3.65-5.03) M/mm3 Hgb 9.4 L (10.1-14.3) gm/dl Hct 28.0 L (30.3-42.9) % RDW 16.0 H (13.2-15.2) % Chloride 111.5 H (98-107) mmol/L Carbon Dioxide 18 L (22-30) mmol/L Calcium 7.9 L (8.4-10.2) mg/dL
[2017-04-04] MEDS: NEURONTIN PO SCH (06:41)
[2017-04-04] MEDS: PULMICORT IH SCH (07:39)
[2017-04-04 07:53] LABS: Basophils % (Auto) 0.5 % (0.0-1.8); Eosinophils # (Auto) 0.1 K/mm3 (0.0-0.4); Eosinophils % (Auto) 1.1 % (0.0-4.3); Hematocrit 26.7 % (30.3-42.9); Lymphocytes # (Auto) 2.1 K/mm3 (1.2-5.4); Lymphocytes % (Auto) 36.6 % (13.4-35.0); Mean Corpuscular HGB Conc 34 % (30-34); Mean Corpuscular Hemoglobin 31 pg (28-32); Mean Corpuscular Volume 92 fl (79-97); Monocytes # (Auto) 0.3 K/mm3 (0.0-0.8); Monocytes % (Auto) 5.7 % (0.0-7.3); Platelet Count 278 K/mm3 (140-440); Red Blood Count 2.91 M/mm3 (3.65-5.03); Red Cell Distribution Width 16.1 % (13.2-15.2)
--- NOTE | 2017-04-04 09:33 | Discharge Summary ---
Providers - Providers Date of Admission: 03/30/17 17:46 Date of discharge: 04/04/17 Attending physician: CECI FIGUEREDO 03/30/17 20:45 Consult to Physician [CONS] Routine Consulting Provider: NATALIE AMANDA Reason For Exam: hypokalemia, surgery tomorrow, med management Place consult to:: DR. HAND Notified:: Phone number called:: [phone] Was contact made?: Yes If yes, spoke with:: DR. HAND 03/31/17 12:56 Consult to Dietitian/Nutrition [CONS] Routine Physician Instructions: Nutrition consult pt with poor wound healing Reason For Exam: Reason for Consult: Pt needs oral supplement Consult to Wound/ET Nurse [CONS] Routine Reason For Exam: wound vac replaced intra operatively 03/31/17 14:16 Consult to Case Management [CONS] Routine Services Needed at Discharge: Other Notified:: COPY LEFT FOR CM Additional Physician Instructions: Eval for rehab vs LTAC Primary care physician: SUZY YEPEZ Hospitalization Reason for admission: wound breakdown Condition: Fair Procedures: Pre-op diagnosis: infected, necrotic right groin incision (sequelae postoperative wound infec Post-op diagnosis: same Findings: Partial necrosis of the sartorius flap successfully debrided back to viable tissue. Large soft tissue hematoma and necrotic fat fascia and muscle right groin. The artery appears covered with granulation tissue. No evidence for direct connection to the artery did successful debridement of necrotic tissue retained hematoma muscle and fascia leaving an 18 I 8 x 5 cm defect in the right groin. Remaining tissue appears viable. Procedure: Debridement of skin/subcutaneous tissue/muscle and fascia right groin 18 cm x 8 cm x 5 cm defect with pulse lavage irrigation Hospital course: The patient has a very complex history of lower extremity PVD with mulitple revascularization procedures. These ultimately resulted in a rt BKA. A right groin wound associated with one of the prior procedures necrosed and required the above procedure. She currently has a wound vac at the right groin. Disposition: [id number] INPT REHAB FACILITY Core Measure Documentation - Palliative Care Palliative Care/ Comfort Measures: Not Applicable - Core Measures Any of the following diagnoses?: none Exam - Constitutional Vitals: Temp Pulse Resp BP Pulse Ox 98.6 F 86 19 104/51 96 04/04/17 07:58 04/04/17 07:58 04/04/17 07:58 04/04/17 07:58 04/04/17 07:58 General appearance: Present: no acute distress, well-nourished - EENT Eyes: Present: PERRL ENT: hearing intact, clear oral mucosa - Neck Neck: Present: supple, normal ROM - Respiratory Respiratory effort: normal - Extremities Extremity abnormal: other (Rt BKA healing well. Wound vac functioning with proper suction) - Abdominal General gastrointestinal: Present: soft, non-tender, non-distended, normal bowel sounds - Integumentary Integumentary: Present: clear, warm, dry - Psychiatric Psychiatric: appropriate mood/affect, intact judgment & insight - Neurologic Neurologic: CNII-XII intact, moves all extremities Plan Activity: other (Per rehab) Weight Bearing Status: Weight Bear as Tolerated Diet: low cholesterol Wound: per wound nurse instructions Special Instructions: follow up in rehab Durable Medical Equipment Needed Upon Discharge: other (per rehab) Follow up with: SUZY YEPEZ MD [Primary Care Provider] - 7 Days FORTINO SALMERON MD [Staff Physician] - 14 Days Prescriptions: HYDROcodone/APAP 5-325 [[place] 5-325 mg TAB] 2 each PO Q6H PRN #20 tablet PRN Reason: Pain, Moderate (4-6)
[2017-04-04] MEDS: NACL 0.9% 1000 ML 1,000 ML IV SCH (10:37)
[2017-04-04] MEDS: ZESTRIL PO SCH (10:38)
[2017-04-04] MEDS: ELIQUIS PO SCH (10:38)
[2017-04-04] MEDS: TRICOR PO SCH (10:39)
[2017-04-04] MEDS: LEVAQUIN PO SCH (10:39)
[2017-04-04] MEDS: PROCARDIA XL PO SCH (10:39)
[2017-04-04] MEDS: NON-FORMULARY (Dolutegravir Sodium [Tivicay] 50 MG) PO SCH (10:40)
[2017-04-04] MEDS: HALFPRIN EC PO SCH (10:40)
[2017-04-04] MEDS: K-DUR PO SCH (10:40)
[2017-04-04] MEDS: PLAVIX PO SCH (10:40)
[2017-04-04] MEDS: LAMIVUDINE PO SCH (10:51)
[2017-04-04] MEDS: ZIDOVUDINE PO SCH (10:51)
[2017-04-04] MEDS: NON-FORMULARY (Darunavir/Cobicistat [Prezcobix 800 Mg-150 Mg Tablet] 1 EACH) PO SCH (10:52)
[2017-04-04] MEDS: MS CONTIN ER PO PRN (11:49)
[2017-04-04 16:55] VITALS: BP 100/54
[2017-04-04 17:33] LABS: Albumin 2.7 g/dL (3.9-5); BUN/Creatinine Ratio 15; Blood Urea Nitrogen 17 mg/dL (7-17); Calcium 7.8 mg/dL (8.4-10.2); Hemolysis Index 3
[2017-04-04 17:39] LABS: Alanine Aminotransferase < 5 units/L (7-56)
--- NOTE | 2017-04-07 09:46 | Query- General ---
Deanikko Hahn Emile Date:__04/07/17 Campus Aide/CDS:____Caroline / Jb Phone#:____[phone] Exercise your independent professional judgment when responding to this query. Questions asked do not imply a particular answer is desired or expected. We greatly appreciate your clarification on this issue. Clinical Documentation States: 56 year old female was admitted on 03/30/17 The Progress note (Dr. Baptiste 03/31/17) states " Assessment and plan: 56 YO Female with HIV, HLD, Hypercoagulable State on anticoagulation, PVD, Nicotine Dependence, CKD 3 admitted for vascular surgery. HIV Continue meds " Clinical Findings Show (include reference to source document): Given the above clinical scenario can you please provide an appropriate diagnosis based on your knowledge of the patient: PHYSICIAN RESPONSE: [ ] AIDS [ x] HIV disease [ ] HIV asymptomatic [ ] Other (Please specify) [ ] Clinically undeterminable Present on Admission: [ x] Yes (Y) [ ] Clinically undeterminable (W) [ ]No(N) Please also document response in your Progress Notes and/or Discharge Summary and indicate if the condition was present on admission. MTDD
== END 2017-04-04 18:15 | DRG 856 ==
LOC: UNDOADMIN 15:22 → 3A 15:22 → EDSTATUS 15:48 → 3A 17:46 → OBSVTOIN 04-04 09:30
PROVIDERS: ADMIT Surgery Vascular Surgery; ATTEND Surgery Vascular Surgery
PROC: 30233N1 Transfusion of Nonautologous Red Blood Cells into Peripheral Vein, Percutaneous Approach (ICD-10-PCS; principal; 2017-04-04)
PROC: 0KBQ0ZZ Excision of Right Upper Leg Muscle, Open Approach (ICD-10-PCS; 2017-04-04)
DX: T81.4XXA Infection following a procedure, initial encounter (principal); B20 Human immunodeficiency virus [HIV] disease; D68.59 Other primary thrombophilia; E78.5 Hyperlipidemia, unspecified; I73.9 Peripheral vascular disease, unspecified; F17.210 Nicotine dependence, cigarettes, uncomplicated; M79.81 Nontraumatic hematoma of soft tissue; N18.3 Chronic kidney disease, stage 3 (moderate); E87.6 Hypokalemia; Y83.8 Other surgical procedures as the cause of abnormal reaction of the patient, or of later complication, without mention of misadventure at the time of the procedure; D50.0 Iron deficiency anemia secondary to blood loss (chronic); I12.9 Hypertensive chronic kidney disease with stage 1 through stage 4 chronic kidney disease, or unspecified chronic kidney disease; K76.9 Liver disease, unspecified; Y92.89 Other specified places as the place of occurrence of the external cause; Z82.49 Family history of ischemic heart disease and other diseases of the circulatory system; Z89.511 Acquired absence of right leg below knee
CPT/HCPCS: 36415; 80048; 80053; 84132; 84134; 85014; 85018; 85025; 85027; 85049; 85520; 85610; 85730; 86850; 86900; 86901; 86920; 87076; 87116; 87186; A4217; G0378; G0379; J1170; J1644; J2370; J2405; J2704; J3010; J3475; J7030; J7040; P9016

== ENCOUNTER 2017-04-15 17:47 | Inpatient (IN) | payer MEDICARE ==
[2017-04-15] MEDS ORDERED: NACL 0.9% 1000 ML 1,000 ML IV ONE ×3 (19:06→22:38)
--- NOTE | 2017-04-15 19:06 | Emergency Department Report ---
ED Altered Mental Status HPI - General Chief Complaint: Altered Mental Status Stated Complaint: HYPOTENTION/POSS SEPSIS/LETHARGIC Time Seen by Provider: 04/15/17 19:06 Source: patient Mode of arrival: Stretcher Limitations: No Limitations - History of Present Illness Initial Comments: 56-year-old female transferred from [facility] HIV with fever possible altered mental status patient is awake and alert and verbal mild she has a history of HIV family states she is on antiretrovirals and her counts have been good. She does take L Song. Papers from [facility] just state that she was a little bit confused with a fever status post her BKA that she is in rehabilitation for at their facility. LEXUS was at this facility in February. She has a history of CK D stage III with a history of arthritis ,asthma, CHF, COPD, DVT, dementia ,diabetes ,headaches ,hypertension, PE, stents internal defibrillator. Patient arrives awake and alert stable airway blood pressure 103 /45 temp 100.3 heart rate 120 room air sat 95 MD Complaint: decreased responsiveness -: Gradual, unknown Consistency of Symptoms: waxing and waning Context: HIV Associated Symptoms: fever/chills, malaise, weakness - Related Data Home Medications Medication Instructions Recorded Confirmed Last Taken Albuterol Sulfate [Ventolin Hfa] 18 gm IH Q4H PRN 03/06/17 04/01/17 03/25/17 Darunavir/Cobicistat [Prezcobix 1 each PO DAILY 03/06/17 04/01/17 03/29/17 800 mg-150 mg Tablet] Dolutegravir Sodium [Tivicay] 50 mg PO DAILY 03/06/17 04/01/17 03/29/17 Fenofibrate Nanocrystallized 145 mg PO DAILY 03/06/17 04/01/17 03/29/17 [Fenofibrate] Fluticasone (Nf) [Flovent 220 1 puff INHALATION DAILY 03/06/17 04/01/17 03/25/17 MCG/PUFF HFA] Lisinopril [Zestril TAB] 20 mg PO QDAY 03/06/17 04/01/17 03/29/17 Morphine Sulfate [Morphine Sulfate 15 mg PO Q12HR 03/06/17 04/01/17 03/29/17 ER] NIFEdipine [Nifedipine ER] 60 mg PO DAILY 0104/01/17 03/29/17 lamiVUDine/ZIDOVUDINE (NF) 1 each PO BID 03/06/17 04/01/17 03/29/17 [COMBIVIR 150-300 mg (NF)] Previous Rx's Medication Instructions Recorded Last Taken Type Apixaban [Eliquis] 5 mg PO BID #60 tablet 03/09/17 03/29/17 Rx Gabapentin [Neurontin] 300 mg PO Q8HR #90 capsule 03/09/17 03/29/17 Rx Aspirin EC [Aspirin Enteric Coated 81 mg PO QDAY tablet 03/24/17 03/29/17 Rx TAB] Clopidogrel [Plavix] 75 mg PO QDAY #30 tablet 03/24/17 03/29/17 Rx Levofloxacin [Levaquin TAB] 750 mg PO Q24H #14 tablet 03/24/17 03/29/17 Rx Potassium Chloride [K-Dur] 40 meq PO QDAY #14 tablet 03/24/17 03/29/17 Rx Acetaminophen [Acetaminophen TAB] 650 mg PO Q4H PRN tablet 04/04/17 Unknown Rx Bisacodyl [Dulcolax suppos] 10 mg HI QDAY PRN supp.rect 04/04/17 Unknown Rx HYDROcodone/APAP 5-325 [[place] 2 each PO Q6H PRN #20 tablet 04/04/17 Unknown Rx 5-325 mg TAB] Allergies Allergy/AdvReac Type Severity Reaction Status Date / Time No Known Allergies Allergy Verified 03/06/17 13:12 ED Review of Systems ROS: Stated complaint: HYPOTENTION/POSS SEPSIS/LETHARGIC Other details as noted in HPI Comment: Unobtainable due to pts medical conditions Constitutional: diaphoresis, fever, weakness Respiratory: no symptoms reported. denies: orthopnea, stridor, wheezing Cardiovascular: denies: chest pain, palpitations, dyspnea on exertion, orthopnea , edema, syncope Gastrointestinal: denies: diarrhea, constipation, hematemesis, melena, hematochezia ED Past Medical Hx - Past Medical History Hx Hypertension: Yes Hx CVA: No Hx Heart Attack/AMI: No Hx Congestive Heart Failure: No Hx Diabetes: No Hx Deep Vein Thrombosis: Yes Hx Pulmonary Embolism: No Hx GERD: No Hx Liver Disease: Yes Hx Renal Disease: Yes (stage 3. NOT ON DIALYSIS) Hx Sickle Cell Disease: No Hx Arthritis: No Hx Headaches / Migraines: No Hx Seizures: No Hx Kidney Stones: No Hx Psychiatric Treatment: No Hx Asthma: Yes Hx COPD: No Hx Tuberculosis: No Hx Dementia: No Hx HIV: Yes - Surgical History Hx Coronary Stent: No Hx Open Heart Surgery: No Hx Pacemaker: No Hx Internal Defibrillator: No Hx Cholecystectomy: No Hx Appendectomy: No Hx Breast Surgery: No Additional Surgical History: Left Angioplasty, Atherectomy Stent /Right Angioplasty Atherectomy stent - Social History Smoking Status: Never Smoker Substance Use Type: None - Medications Home Medications: Home Medications Medication Instructions Recorded Confirmed Last Taken Type Albuterol Sulfate [Ventolin Hfa] 18 gm IH Q4H PRN 03/06/17 04/01/17 03/25/17 History Darunavir/Cobicistat [Prezcobix 1 each PO DAILY 03/06/17 04/01/17 03/29/17 History 800 mg-150 mg Tablet] Dolutegravir Sodium [Tivicay] 50 mg PO DAILY 03/06/17 04/01/17 03/29/17 History Fenofibrate Nanocrystallized 145 mg PO DAILY 03/06/17 04/01/17 03/29/17 History [Fenofibrate] Fluticasone (Nf) [Flovent 220 1 puff INHALATION DAILY 03/06/17 04/01/17 History MCG/PUFF HFA] Lisinopril [Zestril TAB] 20 mg PO QDAY 03/06/17 04/01/17 03/29/17 History Morphine Sulfate [Morphine Sulfate 15 mg PO Q12HR 03/06/17 04/01/17 03/29/17 History ER] NIFEdipine [Nifedipine ER] 60 mg PO DAILY 03/06/17 04/01/17 03/29/17 History lamiVUDine/ZIDOVUDINE (NF) 1 each PO BID 03/06/17 04/01/17 03/29/17 History [COMBIVIR 150-300 mg (NF)] Apixaban [Eliquis] 5 mg PO BID #60 tablet 03/09/17 04/01/17 03/29/17 Rx Gabapentin [Neurontin] 300 mg PO Q8HR #90 capsule 03/09/17 04/01/17 03/29/17 Rx Aspirin EC [Aspirin Enteric Coated 81 mg PO QDAY tablet 03/24/17 04/01/1703/29 Rx TAB] Clopidogrel [Plavix] 75 mg PO QDAY #30 tablet 03/24/17 04/01/17 03/29/17 Rx Levofloxacin [Levaquin TAB] 750 mg PO Q24H #14 tablet 03/24/17 04/01/17 Rx Potassium Chloride [K-Dur] 40 meq PO QDAY #14 tablet 03/24/17 04/01/17 03/29/17 Rx Acetaminophen [Acetaminophen TAB] 650 mg PO Q4H PRN tablet 04/04/17 Unknown Rx Bisacodyl [Dulcolax suppos] 10 mg HI QDAY PRN supp.rect 04/04/17 Unknown Rx HYDROcodone/APAP 5-325 [[place] 2 each PO Q6H PRN #20 tablet 04/04/17 Unknown Rx 5-325 mg TAB] ED Physical Exam - General Limitations: No Limitations General appearance: alert, anxious, other (mild to moderate distress, chronicall ill appearing, dehydrated) - Head Head exam: Present: atraumatic, normocephalic - Eye Eye exam: Present: PERRL, EOMI - ENT ENT exam: Present: normal exam, normal orophraynx, mucous membranes dry - Neck Neck exam: Present: normal inspection, other (supple neck). Absent: tenderness , meningismus - Respiratory Respiratory exam: Present: rhonchi. Absent: respiratory distress, chest wall tenderness, accessory muscle use, decreased breath sounds, prolonged expiratory - Cardiovascular Cardiovascular Exam: Present: tachycardia. Absent: systolic murmur, diastolic murmur, rubs, gallop - GI/Abdominal GI/Abdominal exam: Present: soft. Absent: tenderness, guarding, rebound, rigid , organomegaly, mass, bruit, pulsatile mass - External exam: Present: other (right-sided BKA erythema and warmth local purulence to right groin lesion and no gas tissue appreciated) - Extremities Exam Extremities exam: Present: tenderness, other (BKA right lower extremity with warmth and erythema) - Neurological Exam Neurological exam: Present: alert, CN II-XII intact. Absent: motor sensory deficit - Psychiatric Psychiatric exam: Present: anxious, flat affect. Absent: homicidal ideation, suicidal ideation - Skin Skin exam: Present: warm, erythema. Absent: petechiae, pallor, abrasion, ecchymosis ED Course Vital Signs 04/15/17 04/15/17 04/15/17 18:17 18:55 19:00 Temperature 100.3 F H Pulse Rate 120 H Respiratory 16 Rate Blood Pressure 103/45 110/37 O2 Sat by Pulse 95 97 96 Oximetry 04/15/17 04/15/17 04/15/17 19:15 19:31 19:45 Temperature Pulse Rate 119 H 120 H 120 H Respiratory 14 13 12 Rate Blood Pressure 123/50 124/50 115/45 O2 Sat by Pulse 99 98 97 Oximetry 04/15/17 04/15/17 04/15/17 20:01 20:15 20:31 Temperature Pulse Rate 120 H 122 H 133 H Respiratory 16 14 19 Rate Blood Pressure 124/50 124/50 131/106 O2 Sat by Pulse 99 99 98 Oximetry 04/15/17 04/15/17 04/15/17 20:45 21:00 21:15 Temperature Pulse Rate 126 H 124 H 122 H Respiratory 15 14 12 Rate Blood Pressure 112/34 122/47 128/54 O2 Sat by Pulse 99 96 99 Oximetry 04/15/17 04/15/17 21:40 21:41 Temperature 98 F Pulse Rate Respiratory 20 Rate Blood Pressure O2 Sat by Pulse Oximetry - Reevaluation(s) Reevaluation #1: 04/15/17 22:00 iv and Labs were instituted,as well as x-ray, was treated with fluids were instituted , and antibiotics and cultures and sensitivity, pending - Lab Data Result diagrams: 04/15/17 19:18 04/15/17 19:18 Lab Results 04/15/17 04/15/17 04/15/17 Range/Units 19:18 19:18 19:18 WBC 5.8 (4.5-11.0) K/mm3 RBC 2.49 L (3.65-5.03) M/mm3 Hgb 8.0 L (10.1-14.3) gm/dl Hct 26.3 L (30.3-42.9) % MCV 105 H (79-97) fl MCH 32 (28-32) pg MCHC 30 (30-34) % RDW 23.2 H (13.2-15.2) % Plt Count 380 (140-440) K/mm3 Lymph % (Auto) 37.1 H (13.4-35.0) % [place] % (Auto) 7.5 H (0.0-7.3) % Eos % (Auto) 1.2 (0.0-4.3) % Baso % (Auto) 0.5 (0.0-1.8) % Lymph # 2.2 (1.2-5.4) K/mm3 [place] # 0.4 (0.0-0.8) K/mm3 Eos # 0.1 (0.0-0.4) K/mm3 Baso # 0.0 (0.0-0.1) K/mm3 Seg Neutrophils % 53.7 (40.0-70.0) % Seg Neutrophils # 3.1 (1.8-7.7) K/mm3 Sodium 141 (137-145) mmol/L Potassium 6.5 H* (3.6-5.0) mmol/L Chloride 110.4 H (98-107) mmol/L Carbon Dioxide 10 L (22-30) mmol/L Anion Gap 27 mmol/L BUN 55 H (7-17) mg/dL Creatinine 3.2 H (0.7-1.2) mg/dL Estimated GFR 15 ml/min BUN/Creatinine Ratio 17 % Glucose 87 (65-100) mg/dL Lactic Acid 0.60 L (0.7-2.0) mmol/L Calcium 8.8 (8.4-10.2) mg/dL Total Bilirubin 0.30 (0.1-1.2) mg/dL AST 12 (5-40) units/L ALT < 5 L (7-56) units/L Alkaline Phosphatase 56 (35-129) units/L Total Creatine Kinase 47 (30-135) units/L Troponin T 0.076 H (0.00-0.029) ng/mL Total Protein 5.9 L (6.3-8.2) g/dL Albumin 3.3 L (3.9-5) g/dL Albumin/Globulin Ratio 1.3 % Triglycerides 257 H (2-149) mg/dL Cholesterol 169 (50-199) mg/dL LDL Cholesterol Direct 82 (50-130) mg/dL HDL Cholesterol 36 L (40-59) mg/dL Cholesterol/HDL Ratio 4.69 % Urine Color (Yellow) Urine Turbidity (Clear) Urine pH (5.0-7.0) Ur Specific [place] (1.003-1.030) Urine Protein (Negative) mg/dL Urine Glucose (UA) (Negative) mg/dL Urine Ketones (Negative) mg/dL Urine Blood (Negative) Urine Nitrite (Negative) Urine Bilirubin (Negative) Urine Urobilinogen (<2.0) mg/dL Ur Leukocyte Esterase (Negative) Urine WBC (Auto) (0.0-6.0) /HPF Urine RBC (Auto) (0.0-6.0) /HPF U Epithel Cells (Auto) (0-13.0) /HPF Urine Bacteria (Auto) (Negative) /HPF Hyaline Casts /LPF Urine Yeast (Budding) /HPF Salicylates (2.8-20.0) mg/dL Urine Methadone Screen Acetaminophen (10.0-30.0) ug/mL Ur Barbiturates Screen Ur Phencyclidine Scrn Ur Amphetamines Screen U Benzodiazepines Scrn Urine Cocaine Screen U Marijuana (THC) Screen Plasma/Serum Alcohol (0-0.07) % 04/15/17 04/15/17 04/15/17 Range/Units 19:18 19:18 19:18 WBC (4.5-11.0) K/mm3 RBC (3.65-5.03) M/mm3 Hgb (10.1-14.3) gm/dl Hct (30.3-42.9) % MCV (79-97) fl MCH (28-32) pg MCHC (30-34) % RDW (13.2-15.2) % Plt Count (140-440) K/mm3 Lymph % (Auto) (13.4-35.0) % [place] % (Auto) (0.0-7.3) % Eos % (Auto) (0.0-4.3) % Baso % (Auto) (0.0-1.8) % Lymph # (1.2-5.4) K/mm3 [place] # (0.0-0.8) K/mm3 Eos # (0.0-0.4) K/mm3 Baso # (0.0-0.1) K/mm3 Seg Neutrophils % (40.0-70.0) % Seg Neutrophils # (1.8-7.7) K/mm3 Sodium (137-145) mmol/L Potassium (3.6-5.0) mmol/L Chloride (98-107) mmol/L Carbon Dioxide (22-30) mmol/L Anion Gap mmol/L BUN (7-17) mg/dL Creatinine (0.7-1.2) mg/dL Estimated GFR ml/min BUN/Creatinine Ratio % Glucose (65-100) mg/dL Lactic Acid (0.7-2.0) mmol/L Calcium (8.4-10.2) mg/dL Total Bilirubin (0.1-1.2) mg/dL AST (5-40) units/L ALT (7-56) units/L Alkaline Phosphatase (35-129) units/L Total Creatine Kinase (30-135) units/L Troponin T (0.00-0.029) ng/mL Total Protein (6.3-8.2) g/dL Albumin (3.9-5) g/dL Albumin/Globulin Ratio % Triglycerides (2-149) mg/dL Cholesterol (50-199) mg/dL LDL Cholesterol Direct (50-130) mg/dL HDL Cholesterol (40-59) mg/dL Cholesterol/HDL Ratio % Urine Color (Yellow) Urine Turbidity (Clear) Urine pH (5.0-7.0) Ur Specific [place] (1.003-1.030) Urine Protein (Negative) mg/dL Urine Glucose (UA) (Negative) mg/dL Urine Ketones (Negative) mg/dL Urine Blood (Negative) Urine Nitrite (Negative) Urine Bilirubin (Negative) Urine Urobilinogen (<2.0) mg/dL Ur Leukocyte Esterase (Negative) Urine WBC (Auto) (0.0-6.0) /HPF Urine RBC (Auto) (0.0-6.0) /HPF U Epithel Cells (Auto) (0-13.0) /HPF Urine Bacteria (Auto) (Negative) /HPF Hyaline Casts /LPF Urine Yeast (Budding) /HPF Salicylates < 0.3 L (2.8-20.0) mg/dL Urine Methadone Screen Acetaminophen < 15.0 (10.0-30.0) ug/mL Ur Barbiturates Screen Ur Phencyclidine Scrn Ur Amphetamines Screen U Benzodiazepines Scrn Urine Cocaine Screen U Marijuana (THC) Screen Plasma/Serum Alcohol < 0.01 (0-0.07) % 04/15/17 04/15/17 Range/Units Unknown Unknown WBC (4.5-11.0) K/mm3 RBC (3.65-5.03) M/mm3 Hgb (10.1-14.3) gm/dl Hct (30.3-42.9) % MCV (79-97) fl MCH (28-32) pg MCHC (30-34) % RDW (13.2-15.2) % Plt Count (140-440) K/mm3 Lymph % (Auto) (13.4-35.0) % [place] % (Auto) (0.0-7.3) % Eos % (Auto) (0.0-4.3) % Baso % (Auto) (0.0-1.8) % Lymph # (1.2-5.4) K/mm3 [place] # (0.0-0.8) K/mm3 Eos # (0.0-0.4) K/mm3 Baso # (0.0-0.1) K/mm3 Seg Neutrophils % (40.0-70.0) % Seg Neutrophils # (1.8-7.7) K/mm3 Sodium (137-145) mmol/L Potassium (3.6-5.0) mmol/L Chloride (98-107) mmol/L Carbon Dioxide (22-30) mmol/L Anion Gap mmol/L BUN (7-17) mg/dL Creatinine (0.7-1.2) mg/dL Estimated GFR ml/min BUN/Creatinine Ratio % Glucose (65-100) mg/dL Lactic Acid (0.7-2.0) mmol/L Calcium (8.4-10.2) mg/dL Total Bilirubin (0.1-1.2) mg/dL AST (5-40) units/L ALT (7-56) units/L Alkaline Phosphatase (35-129) units/L Total Creatine Kinase (30-135) units/L Troponin T (0.00-0.029) ng/mL Total Protein (6.3-8.2) g/dL Albumin (3.9-5) g/dL Albumin/Globulin Ratio % Triglycerides (2-149) mg/dL Cholesterol (50-199) mg/dL LDL Cholesterol Direct (50-130) mg/dL HDL Cholesterol (40-59) mg/dL Cholesterol/HDL Ratio % Urine Color Yellow (Yellow) Urine Turbidity Clear (Clear) Urine pH 5.0 (5.0-7.0) Ur Specific [place] 1.015 (1.003-1.030) Urine Protein <15 mg/dl (Negative) mg/dL Urine Glucose (UA) Neg (Negative) mg/dL Urine Ketones Neg (Negative) mg/dL Urine Blood Neg (Negative) Urine Nitrite Neg (Negative) Urine Bilirubin Neg (Negative) Urine Urobilinogen < 2.0 (<2.0) mg/dL Ur Leukocyte Esterase Mod (Negative) Urine WBC (Auto) 12.0 H (0.0-6.0) /HPF Urine RBC (Auto) 4.0 (0.0-6.0) /HPF U Epithel Cells (Auto) 5.0 (0-13.0) /HPF Urine Bacteria (Auto) 2+ (Negative) /HPF Hyaline Casts 1 /LPF Urine Yeast (Budding) 2+ /HPF Salicylates (2.8-20.0) mg/dL Urine Methadone Screen Presumptive negative Acetaminophen (10.0-30.0) ug/mL Ur Barbiturates Screen Presumptive negative Ur Phencyclidine Scrn Presumptive negative Ur Amphetamines Screen Presumptive negative U Benzodiazepines Scrn Presumptive negative Urine Cocaine Screen Presumptive negative U Marijuana (THC) Screen Presumptive negative Plasma/Serum Alcohol (0-0.07) % - Radiology Data Radiology results: pending - Medical Decision Making Patient with HIV with a recurrence of postop wound infection. She does have evidence of UTI, and poss pneujmonia, was cultured and given abx, case d/w dr eddy for admit, lactic is unremarkable but tach w/ fever and given ivf and abx. no hypotension, c and s is pending, pt admit for further eval hiv w/ fever and likledy post op wound infection, r/o uti and pneumonia, r/o sepsis. Critical care attestation.: If time is entered above; I have spent that time in minutes in the direct care of this critically ill patient, excluding procedure time. ED Disposition Clinical Impression: Post op infection, HIV (human immunodeficiency virus infection), SIRS ( systemic inflammatory response syndrome) Disposition: [id number] OP ADMIT IP TO THIS HOSP Is pt being admited?: Yes Condition: Serious Time of Disposition: 22:12
[2017-04-15 19:41] LABS: Basophils % (Auto) 0.5 % (0.0-1.8); Eosinophils # (Auto) 0.1 K/mm3 (0.0-0.4); Eosinophils % (Auto) 1.2 % (0.0-4.3); Hematocrit 26.3 % (30.3-42.9); Lymphocytes # (Auto) 2.2 K/mm3 (1.2-5.4); Lymphocytes % (Auto) 37.1 % (13.4-35.0); Mean Corpuscular HGB Conc 30 % (30-34); Mean Corpuscular Hemoglobin 32 pg (28-32); Mean Corpuscular Volume 105 fl (79-97); Monocytes # (Auto) 0.4 K/mm3 (0.0-0.8); Monocytes % (Auto) 7.5 % (0.0-7.3); Platelet Count 380 K/mm3 (140-440); Red Blood Count 2.49 M/mm3 (3.65-5.03); Red Cell Distribution Width 23.2 % (13.2-15.2)
[2017-04-15 20:13] LABS: Albumin 3.3 g/dL (3.9-5); BUN/Creatinine Ratio 17; Blood Urea Nitrogen 55 mg/dL (7-17); Calcium 8.8 mg/dL (8.4-10.2); Hemolysis Index 11
[2017-04-15 20:22] LABS: Alanine Aminotransferase < 5 units/L (7-56)
[2017-04-15 20:42] LABS: Chol/HDL Ratio 4.69 %; HDL Cholesterol 36 mg/dL (40-59); LDL Cholesterol,Direct 82 mg/dL (50-130)
[2017-04-15] MEDS ORDERED: ZOSYN/NS 2.25 GM/50ML 2.25 GM/50 ML BAG IV SCH ×2 (21:00→22:00)
--- NOTE | 2017-04-15 21:34 | XRay Report ---
FINAL REPORT EXAM: XR CHEST 1V AP HISTORY: Altered Mental Status TECHNIQUE: Frontal portable chest x-ray Comparison: 03/15/2017 FINDINGS: Hypoventilated exam with crowding in both bases. There is mild cardiomegaly. There is slight prominence of the bilateral hilar markings. Bones are osteopenic. IMPRESSION: Mild cardiomegaly. Mild prominence of the bilateral hilar markings. Hypoventilated exam with bilateral basal crowding. Subtle superimposed infiltrates cannot be excluded. Recommend follow-up exam be performed with larger inspiratory volumes and two views.
[2017-04-15 21:47] LABS: Bacteria,Urine 2+ /HPF (Negative); Bilirubin,Urine NEG (Negative); Blood,Urine NEG (Negative); Color,Urine Yellow (Yellow); Hyaline Casts,Urine 1 /LPF; Nitrite,Urine NEG (Negative); Protein,Urine <15 mg/dL mg/dL (Negative); Urobilinogen,Urine < 2.0 mg/dL (<2.0)
[2017-04-15] MEDS ORDERED: D50W (25GM) Syringe IV ONE (21:50)
[2017-04-15 21:51] LABS: Amphetamine Screen,Urine PRESUMPTIVE NEGATIVE; Benzodiazepines Screen,Urine PRESUMPTIVE NEGATIVE; Cannabinoid Screen,Urine PRESUMPTIVE NEGATIVE; Cocaine Screen,Urine PRESUMPTIVE NEGATIVE; Methadone Screen,Urine PRESUMPTIVE NEGATIVE
[2017-04-15 22:04] LABS: Opiate Screen,Urine PRESUMPTIVE POSITIVE
[2017-04-15] MEDS ORDERED: KIONEX PO ONE (22:08)
--- NOTE | 2017-04-15 22:15 | XRay Report ---
FINAL REPORT EXAM: XR FEMUR 2+V RT HISTORY: fever/post op pain TECHNIQUE: Five views right femur Comparison: None FINDINGS: There has been previous right [id number] amputation. There are stents the length of the right superficial femoral artery and clips in the right the hip. There is no fracture or dislocation. There are stents in the left superficial femoral artery and clips in the left groin. There are stents in the left external iliac artery. There is soft tissue reticulation along the lateral thigh musculature. There is a sharp surgical below the knee margin. There is no radiopaque foreign body other than the above-mentioned findings and postoperative yuliya. IMPRESSION: Status post right [id number] amputation. No acute abnormality of the right femur. Soft tissue swelling laterally of the right thigh. Right superficial femoral artery stents. Sharp tibial and fibular suture margins.
--- NOTE | 2017-04-15 22:46 | Cat Scan Report ---
FINAL REPORT PROCEDURE: CT HEAD/BRAIN WO CON TECHNIQUE: Computerized tomography of the head was performed without contrast material. HISTORY: Altered Mental Status COMPARISON: No prior studies are available for comparison. FINDINGS: Skull and scalp: Normal. Paranasal sinuses: Normal. Ventricles and subarachnoid spaces: Normal. Cerebrum: No evidence of hemorrhage, acute infarction or mass. Periventricular and deep white matter diminished densities consistent with microangiopathy. Basal ganglia infarcts. Cerebellum and brainstem: No evidence of hemorrhage, acute infarction or mass. Vasculature: Normal. Comments: None. IMPRESSION: Involutional change with periventricular and deep white matter microangiopathy. No hemorrhage.
--- NOTE | 2017-04-15 22:56 | XRay Report ---
FINAL REPORT PROCEDURE: XR PELVIS 1-2V TECHNIQUE: Pelvis radiograph, AP view. CPT 26843 HISTORY: post op/pain COMPARISON: No prior studies are available for comparison. FINDINGS: Fracture(s): None . Joint spaces: Normal . Soft tissues: Normal . Foreign bodies: Vascular stents of the bilateral lower extremities. Vascular stent in the left iliac region. Surgical clips. Bone mineralization: Normal . IMPRESSION: Postoperative changes endovascular stents. No dilated loops of bowel. No fracture
[2017-04-16] MEDS ORDERED: D50W (25GM) Syringe IV ONE (00:12)
--- NOTE | 2017-04-16 01:06 | History and Physical Report ---
History of Present Illness Date of examination: 04/16/17 Chief complaint: AMS, pain, fever s/p BKA History of present illness: 56-year-old female transferred from [facility] HIV with fever possible altered mental status patient is awake and alert and verbal mild she has a history of HIV family states she is on antiretrovirals and her counts have been good. She does take L Song. Papers from [facility] just state that she was a little bit confused with a fever status post her BKA that she is in rehabilitation for at their facility. BKA was at this facility in February. She has a history of CK D stage III with a history of arthritis ,asthma, CHF, COPD, DVT, dementia ,diabetes ,headaches ,hypertension, PE, stents internal defibrillator. Patient arrives awake and alert stable airway blood pressure 103 /45 temp 100.3 heart rate 120 room air sat 95 MD Complaint: decreased responsiveness Past Medical History: hyperlipidemia, other (PVD, Hypercoagulable State, asthma ) Past Surgical History: Other ((bilateral lower extremity endovascular procedures , bilateral femoral endarterectomies and thrombectomies, RLE amputation) Social history: single, smoking. denies: alcohol abuse, prescription drug abuse Family history: hypertension Medications and Allergies Allergies Allergy/AdvReac Type Severity Reaction Status Date / Time No Known Allergies Allergy Verified 03/06/17 13:12 Home Medications Medication Instructions Recorded Confirmed Last Taken Type Albuterol Sulfate [Ventolin Hfa] 18 gm IH Q4H PRN 03/06/17 04/01/17 03/25/17 History Darunavir/Cobicistat [Prezcobix 1 each PO DAILY 03/06/17 04/01/17 03/29/17 History 800 mg-150 mg Tablet] Dolutegravir Sodium [Tivicay] 50 mg PO DAILY 03/06/17 04/01/17 03/29/17 History Fenofibrate Nanocrystallized 145 mg PO DAILY 03/06/17 04/01/17 03/29/17 History [Fenofibrate] Fluticasone (Nf) [Flovent 220 1 puff INHALATION DAILY 03/06/17 04/01/17 History MCG/PUFF HFA] Lisinopril [Zestril TAB] 20 mg PO QDAY 03/06/17 04/01/17 03/29/17 History Morphine Sulfate [Morphine Sulfate 15 mg PO Q12HR 03/06/17 04/01/17 03/29/17 History ER] NIFEdipine [Nifedipine ER] 60 mg PO DAILY 03/06/17 04/01/17 03/29/17 History lamiVUDine/ZIDOVUDINE (NF) 1 each PO BID 03/06/17 04/01/17 03/29/17 History [COMBIVIR 150-300 mg (NF)] Apixaban [Eliquis] 5 mg PO BID #60 tablet 03/09/17 04/01/17 03/29/17 Rx Gabapentin [Neurontin] 300 mg PO Q8HR #90 capsule 03/09/17 04/01/17 03/29/17 Rx Aspirin EC [Aspirin Enteric Coated 81 mg PO QDAY tablet 03/24/17 04/01/1703/29 Rx TAB] Clopidogrel [Plavix] 75 mg PO QDAY #30 tablet 03/24/17 04/01/17 03/29/17 Rx Levofloxacin [Levaquin TAB] 750 mg PO Q24H #14 tablet 03/24/17 04/01/17 Rx Potassium Chloride [K-Dur] 40 meq PO QDAY #14 tablet 03/24/17 04/01/17 03/29/17 Rx Acetaminophen [Acetaminophen TAB] 650 mg PO Q4H PRN tablet 04/04/17 Unknown Rx Bisacodyl [Dulcolax suppos] 10 mg MN QDAY PRN supp.rect 04/04/17 Unknown Rx HYDROcodone/APAP 5-325 [[place] 2 each PO Q6H PRN #20 tablet 04/04/17 Unknown Rx 5-325 mg TAB] Active Meds: Active Medications Piperacillin Sod/Tazobactam Sod (Zosyn/Ns 2.25 Gm/50ml) 2.25 gm in 50 mls @ 100 mls/hr IV Q8H LANETTE Last Admin: 04/16/17 00:06 Dose: 100 mls/hr Review of Systems ROS unobtainable: due to mental status Exam - Physical Exam Narrative exam: Gen - patient is awake extremely confused due to this morning including crying in pain appears to be in distress due to pain. Patient has baseline dementia and behavioral issues. No family at bedside currently but as per the ER physician's report patient is at her baseline mental status. HEENT - head is atraumatic normocephalic pupils equal round reactive to light, extraocular movements intact, oral mucosa severely dry, oropharynx clear. Neck is supple no JVD no thyromegaly or lymphadenopathy no carotid bruits trachea is midline Heart - regular rate and rhythm no murmurs or gallops PMI nondisplaced Lungs - scattered rhonchi but overall clear to auscultation bilaterally except as mild Bi basilar crackles nonlabored breathing, normal chest wall expansion no chest wall tenderness Abdomen - soft nondistended nontender normoactive bowel sounds no hepatosplenomegaly no abdominal masses or bruit appreciated Extremities -right BKA. Severe erythema warmth tenderness to palpation. Swollen edema anticipated Neurological - Limited exam due to altered mental status but grossly intact and nonfocal. Moving all 4 extremities equally bilaterally Skin - multiple areas of skin breakdown with significant erythema and tenderness to palpation over the right groin and a BKA stump area. No obvious ulceration or discharge noted. Psychiatric -could not assess due to altered mental status patient has baseline dementia and behavioral issues. Currently appears confused and delirious Vascular system - no lymphadenopathy distal pulses 2+ left lower extremity - Constitutional Vitals: Temp Pulse Resp BP Pulse Ox 98 F 122 H 20 128/54 99 04/15/17 21:40 04/15/17 21:15 04/15/17 21:41 04/15/17 21:15 04/15/17 21:15 Results - Labs CBC & Chem 7: 04/15/17 19:18 04/16/17 00:07 Labs: Laboratory Last Values WBC 5.8 K/mm3 (4.5-11.0) 04/15/17 19:18 RBC 2.49 M/mm3 (3.65-5.03) L 04/15/17 19:18 Hgb 8.0 gm/dl (10.1-14.3) L 04/15/17 19:18 Hct 26.3 % (30.3-42.9) L 04/15/17 19:18 MCV 105 fl (79-97) H 04/15/17 19:18 MCH 32 pg (28-32) 04/15/17 19:18 MCHC 30 % (30-34) 04/15/17 19:18 RDW 23.2 % (13.2-15.2) H 04/15/17 19:18 Plt Count 380 K/mm3 (140-440) 04/15/17 19:18 Lymph % (Auto) 37.1 % (13.4-35.0) H 04/15/17 19:18 [place] % (Auto) 7.5 % (0.0-7.3) H 04/15/17 19:18 Eos % (Auto) 1.2 % (0.0-4.3) 04/15/17 19:18 Baso % (Auto) 0.5 % (0.0-1.8) 04/15/17 19:18 Lymph # 2.2 K/mm3 (1.2-5.4) 04/15/17 19:18 [place] # 0.4 K/mm3 (0.0-0.8) 04/15/17 19:18 Eos # 0.1 K/mm3 (0.0-0.4) 04/15/17 19:18 Baso # 0.0 K/mm3 (0.0-0.1) 04/15/17:18 Seg Neutrophils % 53.7 % (40.0-70.0) 04/15/17 19:18 Seg Neutrophils # 3.1 K/mm3 (1.8-7.7) 04/15/17 19:18 Sodium 141 mmol/L (137-145) 04/15/17 19:18 Potassium 6.4 mmol/L (3.6-5.0) H* 04/16/17 00:07 Chloride 110.4 mmol/L (98-107) H 04/15/17 19:18 Carbon Dioxide 10 mmol/L (22-30) L 04/15/17 19:18 Anion Gap 27 mmol/L 04/15/17 19:18 BUN 55 mg/dL (7-17) H 04/15/17 19:18 Creatinine 3.2 mg/dL (0.7-1.2) H 04/15/17 19:18 Estimated GFR 15 ml/min 04/15/17 19:18 BUN/Creatinine Ratio 17 % 04/15/17 19:18 Glucose 87 mg/dL (65-100) 04/15/17 19:18 Lactic Acid 0.60 mmol/L (0.7-2.0) L 04/15/17 19:18 Calcium 8.8 mg/dL (8.4-10.2) 04/15/17 19:18 Total Bilirubin 0.30 mg/dL (0.1-1.2) 04/15/17 19:18 AST 12 units/L (5-40) 04/15/17 19:18 ALT < 5 units/L (7-56) L 04/15/17 19:18 Alkaline Phosphatase 56 units/L (35-129) 04/15/17:18 Total Creatine Kinase 47 units/L (30-135) 04/15/17 19:18 Troponin T 0.076 ng/mL (0.00-0.029) H 04/15/17 19:18 Total Protein 5.9 g/dL (6.3-8.2) L 04/15/17:18 Albumin 3.3 g/dL (3.9-5) L 04/15/17:18 Albumin/Globulin Ratio 1.3 % 04/15/17:18 Triglycerides 257 mg/dL (2-149) H 04/15/17 19:18 Cholesterol 169 mg/dL (50-199) 04/15/17:18 LDL Cholesterol Direct 82 mg/dL (50-130) 04/15/17:18 HDL Cholesterol 36 mg/dL (40-59) L 04/15/17:18 Cholesterol/HDL Ratio 4.69 % 04/15/17 19:18 Urine Color Yellow (Yellow) 04/15/17 Unknown Urine Turbidity Clear (Clear) 04/15/17 Unknown Urine pH 5.0 (5.0-7.0) 04/15/17 Unknown Ur Specific [place] 1.015 (1.003-1.030) 04/15/17 Unknown Urine Protein <15 mg/dl mg/dL (Negative) 04/15/17 Unknown Urine Glucose (UA) Neg mg/dL (Negative) 04/15/17 Unknown Urine Ketones Neg mg/dL (Negative) 04/15/17 Unknown Urine Blood Neg (Negative) 04/15/17 Unknown Urine Nitrite Neg (Negative) 04/15/17 Unknown Urine Bilirubin Neg (Negative) 04/15/17 Unknown Urine Urobilinogen < 2.0 mg/dL (<2.0) 04/15/17 Unknown Ur Leukocyte Esterase Mod (Negative) 02/16/18 Unknown Urine WBC (Auto) 12.0 /HPF (0.0-6.0) H 04/15/17 Unknown Urine RBC (Auto) 4.0 /HPF (0.0-6.0) 04/15/17 Unknown U Epithel Cells (Auto) 5.0 /HPF (0-13.0) 04/15/17 Unknown Urine Bacteria (Auto) 2+ /HPF (Negative) 04/15/17 Unknown Hyaline Casts 1 /LPF 04/15/17 Unknown Urine Yeast (Budding) 2+ /HPF 04/15/17 Unknown Salicylates < 0.3 mg/dL (2.8-20.0) L 04/15/17 19:18 Urine Opiates Screen Presumptive positive 04/15/17 Unknown Urine Methadone Screen Presumptive negative 04/15/17 Unknown Acetaminophen < 15.0 ug/mL (10.0-30.0) 04/15/17 19:18 Ur Barbiturates Screen Presumptive negative 04/15/17 Unknown Ur Phencyclidine Scrn Presumptive negative 04/15/17 Unknown Ur Amphetamines Screen Presumptive negative 04/15/17 Unknown U Benzodiazepines Scrn Presumptive negative 04/15/17 Unknown Urine Cocaine Screen Presumptive negative 04/15/17 Unknown U Marijuana (THC) Screen Presumptive negative 04/15/17 Unknown Drugs of Abuse Note Disclamer 04/15/17 Unknown Plasma/Serum Alcohol < 0.01 % (0-0.07) 04/15/17 19:18 - Imaging and Cardiology Imaging and Cardiology: EKG - normal sinus rhythm negative for acute ischemia or other arrhythmia CT head showing no acute process X-ray of the right femur - showing soft tissue swelling and right-sided laterally but no bony changes postsurgical changes present X-ray pelvis showing no acute process postsurgical changes Assessment and Plan Assessment and plan: Assessment and plan - * Source likely to 2 postsurgical infection * Status post BKA * Cellulitis and stump infection * HIV with undetectable viral load and CD4 count of 277 and recently on 2017 * Acute kidney injury likely ATN * Anemia * Hyperkalemia with potassium 6.5 * Acute kidney injury Plan - Admitted to medical floor with telemetry Empiric antibiotics in the form of vancomycin and Zosyn pharmacy to dose the same blood cultures drawn will follow up results modify antibiotic treatment based culture and sensitivity data. Aggressive IV fluids monitored and function with IV fluid rehydration. Renally dose all medications Avoid nephrotoxins and NSAIDs. Monitor volume status ins and outs electrolytes Anemia studies as ordered follow-up results treated appropriately as indicated Monitor CBC and electrolytes Replace electrolytes when necessary as per protocol DVT GI prophylaxis as ordered Will patient's apixaban in view of her possible impending surgery She did abdomen and pelvis ordered. Follow-up results Consults surgery in a.m. for further evaluation and management recommendations Continue her home antiretroviral medications Continue symptomatic supportive treatment with pain medicines when necessary antiemetics Monitor and follow the patient closely
[2017-04-16] MEDS ORDERED: DULCOLAX PR PRN ×2 (01:45→01:56)
[2017-04-16] MEDS ORDERED: MILK OF MAGNESIA PO PRN (01:45)
[2017-04-16] MEDS ORDERED: DILAUDID IV PRN (01:45)
[2017-04-16] MEDS ORDERED: D50W (25GM) Syringe IV PRN (01:45)
[2017-04-16] MEDS ORDERED: PROVENTIL IH PRN (01:45)
[2017-04-16] MEDS ORDERED: ZOFRAN IV PRN (01:45)
--- NOTE | 2017-04-16 01:50 | Cat Scan Report ---
FINAL REPORT EXAM: CT ABDOMEN PELVIS WO CON HISTORY: pain TECHNIQUE: Routine axial imaging was obtained of the abdomen and pelvis without oral or IV contrast. Sagittal and coronal reconstructions were reviewed. FINDINGS: The lung bases reveal chronic interstitial changes. There are no localized infiltrates or effusions. The liver, gallbladder, biliary tree, pancreas, and spleen appear normal. The adrenal glands appear normal. The kidneys reveal multiple nonobstructing small calcifications bilaterally. There is no evidence of hydronephrosis. There calcification of the abdominal aorta. There is a small ventral midline abdominal hernia containing a bulging bowel loop. There is no evidence of bowel obstruction. The bowel loops otherwise reveal a large amount retained feces in the colon with mild distention of small-bowel loops. No definite transition point though is seen. The appendix is not identified. Ventral to the ascending colon in the right-sided abdomen is an amorphous area of tissue in the mesentery. If there is a history of malignancy, omental caking cannot be excluded. Free fluid is not seen in the abdomen and pelvis otherwise. In the pelvis the bladder is distended. The uterus is atrophic. There are no definite adnexal masses. There are postsurgical changes in both inguinal areas with surgical clips noted. There is effacement of the subcutaneous fat overlying the surgical sites bilaterally. Underlying inflammatory changes cannot be excluded. The skeletal structures reveal arthritic changes lumbar spine. IMPRESSION: Large amount retained feces in the colon with mild distention of small-bowel loops. No definite transition point identified though. Amorphous area of soft tissue ventral to the ascending colon involve the mesentery in the right side of the abdomen. If there is a history of malignancy, omental caking cannot entirely be excluded. No evidence of ascites otherwise. Small ventral hernia containing a bulging bowel loop. No evidence of bowel obstruction. Distended bladder with atrophic uterus. No definite adnexal mass seen. Postsurgical changes in both inguinal areas with surgical clips noted. There is reticulation of the adjacent subcutaneous fat. Residual inflammatory changes cannot be excluded. Nonobstructing calcifications in both kidneys.
[2017-04-16] MEDS ORDERED: VANCOMYCIN PHARMACY TO DOSE IV SCH (02:00)
--- NOTE | 2017-04-16 02:25 | Cat Scan Report ---
FINAL REPORT EXAM: CT LOWER EXTREMITY RT WO CON HISTORY: pain TECHNIQUE: Routine axial imaging was obtained of the right lower extremity extending from above the hip joint to just below the knee without IV contrast. Sagittal and coronal reconstructions were reviewed. FINDINGS: There are surgical clips in the right inguinal area with a right femoral popliteal bypass graft coursing distally in the thigh. There are postsurgical inflammatory changes along operative site proximally without definite abscess formation identified. There is considerable subcutaneous edema along the right thigh extending to around the knee. The patient is status post [id number] amputation. There is no evidence of osteomyelitis. The hip joint space appears normal. IMPRESSION: Status post right femoral-popliteal bypass graft and right-sided [id number] amputation. Postsurgical inflammatory changes along the incision site in the upper thigh and within the subcutaneous tissues. Additional subcutaneous edema along the right thigh extending to the amputation stump.
[2017-04-16] MEDS ORDERED: VANCOMYCIN/NS 1 GM/250 ML 1 GM/250 ML BAG IV ONE (02:45)
[2017-04-16] MEDS: DUONEB *Not for PRN Use IH SCH ×5 (02:59→21:18)
[2017-04-16 03:20] LABS: Basophils % (Auto) 0.4 % (0.0-1.8); Eosinophils # (Auto) 0.1 K/mm3 (0.0-0.4); Hemoglobin 7.7 gm/dl (10.1-14.3); Lymphocytes # (Auto) 1.7 K/mm3 (1.2-5.4); Lymphocytes % (Auto) 31.3 % (13.4-35.0); Mean Corpuscular HGB Conc 32 % (30-34); Mean Corpuscular Hemoglobin 32 pg (28-32); Mean Corpuscular Volume 99 fl (79-97); Monocytes # (Auto) 0.5 K/mm3 (0.0-0.8); Monocytes % (Auto) 8.4 % (0.0-7.3); Platelet Count 372 K/mm3 (140-440); Red Blood Count 2.41 M/mm3 (3.65-5.03)
[2017-04-16 03:35] LABS: Red Cell Distribution Width 23.6 % (13.2-15.2)
[2017-04-16 03:43] LABS: Albumin 2.7 g/dL (3.9-5); BUN/Creatinine Ratio 19; Blood Urea Nitrogen 47 mg/dL (7-17); Calcium 8.7 mg/dL (8.4-10.2); Hemolysis Index 4
[2017-04-16 04:11] LABS: Iron 35 ug/dL (37-170); Total Iron Binding Capacity 214 mcg/dL (250-450)
[2017-04-16 04:18] LABS: Alanine Aminotransferase < 5 units/L (7-56)
[2017-04-16] MEDS ORDERED: SODIUM BICARBONATE IV ONE ×2 (04:27→05:26)
[2017-04-16] MEDS: SODIUM BICARBONATE IV ONE ×2 (05:44→05:47)
[2017-04-16] MEDS ORDERED: ZOSYN/NS 3.375GM/50ML 3.375 GM/50 ML BAG IV SCH ×2 (06:00)
[2017-04-16] MEDS: HEPARIN SUB-Q SCH ×3 (06:29→22:04)
[2017-04-16] MEDS: ZOSYN/NS 2.25 GM/50ML 2.25 GM/50 ML BAG IV SCH ×4 (06:30→23:06)
[2017-04-16] MEDS: NEURONTIN PO SCH ×3 (06:30→22:04)
[2017-04-16 06:54] LABS: Creatine Kinase MB 2.5 ng/mL (0.0-4.0)
[2017-04-16] MEDS: PULMICORT IH SCH ×2 (07:48→21:18)
--- NOTE | 2017-04-16 08:58 | Event Note ---
Date: 04/16/17 Patient was seen and examined. She was admitted today with the following diagnosis * Sepsis likely to 2 postsurgical infection * Status post right BKA * Cellulitis and stump infection * HIV with undetectable viral load and CD4 count of 277 as of 03/15/2017 * Acute kidney injury likely ATN * Anemia * Hyperkalemia with potassium 6.5 * Acute kidney injury Plan - Admitted to medical floor with telemetry Empiric antibiotics in the form of vancomycin and Zosyn pharmacy to dose the same blood cultures drawn will follow up results modify antibiotic treatment based culture and sensitivity data. Aggressive IV fluids monitored and function with IV fluid rehydration. Renally dose all medications Avoid nephrotoxins and NSAIDs. Monitor volume status ins and outs electrolytes Anemia studies as ordered follow-up results treated appropriately as indicated Monitor CBC and electrolytes Replace electrolytes when necessary as per protocol DVT GI prophylaxis as ordered Will patient's apixaban in view of her possible impending surgery She did abdomen and pelvis ordered. Follow-up results Consults surgery in a.m. for further evaluation and management recommendations Continue her home antiretroviral medications Continue symptomatic supportive treatment with pain medicines when necessary antiemetics Monitor and follow the patient closely
[2017-04-16] MEDS ORDERED: SODIUM BICARBONATE 150 MEQ in D5W 1,000 ML IV SCH (09:00)
[2017-04-16] MEDS ORDERED: FLUTICASONE INHALATION SCH (10:00)
[2017-04-16] MEDS ORDERED: NON-FORMULARY (Dolutegravir Sodium [Tivicay] 50 MG) PO SCH (10:00)
[2017-04-16] MEDS ORDERED: LAMIVUDINE PO SCH (10:00)
[2017-04-16] MEDS ORDERED: PROTONIX IV SCH (10:00)
[2017-04-16] MEDS ORDERED: ZIDOVUDINE PO SCH (10:00)
[2017-04-16] MEDS ORDERED: NON-FORMULARY (Darunavir/Cobicistat [Prezcobix 800 Mg-150 Mg Tablet] 1 EACH) PO SCH (10:00)
[2017-04-16] MEDS: NOVOLOG SUB-Q SCH ×4 (11:36→22:07)
[2017-04-16] MEDS: PEPCID IV SCH (11:37)
[2017-04-16] MEDS: HALFPRIN EC PO SCH (11:37)
[2017-04-16] MEDS: MS CONTIN ER PO SCH ×2 (11:37→22:04)
[2017-04-16] MEDS: PLAVIX PO SCH (11:37)
[2017-04-16] MEDS: TRICOR PO SCH (11:37)
[2017-04-16] MEDS: D5NS 1,000 ML IV SCH (12:23)
--- NOTE | 2017-04-16 13:57 | Consultation ---
History of Present Illness - Reason for Consult Consult date: 04/16/17 acute renal failure, chronic renal failure Requesting physician: SABRINA RAMIREZ - History of Present Illness This is a 56 year old female patient known to me from outpatient CKD f/u, with past medical history of HIV, on ART with well controlled VL and CD4 count, COPD , DVT, hypertension, CKD stage 3, due to presumed chronic interstitial nephritis , peripheral vascular disease s/p Rt BKA in Feb, with baseline Cr around 1.1- 1.4mg/dl, who was transferred from [facility] after pt was found to have altered mental status, labs showed that pt was in acute renal failure superimposed on CKD, with BUN/Cr elevated at 55/3.2mg/dl along with significant metabolic acidosis with serum bicarb of 10 and hyperkalemia with K >6.5. renal consult is requested for management MELQUIADES/hyperkalemia. Lactic acid level was only 0.6. Pt reports fever, chills, generalized weakness, denies CP, SOB, palpitations, dysuria, abd pain. denies recent NSAIDS use, IV Contrats exposure. Past History Past Medical History: HIV/AIDS, hypertension, PVD, renal failure Past Surgical History: , Other (R BKA in Feb 2017, h/o explorative laparotomy ) Social history: smoking. denies: alcohol abuse, prescription drug abuse, IV drug use Family history: no significant family history Medications and Allergies Allergies Allergy/AdvReac Type Severity Reaction Status Date / Time No Known Allergies Allergy Verified 03/06/17 13:12 Home Medications Medication Instructions Recorded Confirmed Last Taken Type RX: Albuterol Sulfate [Ventolin 18 gm IH Q4H PRN 03/06/17 04/01/17 03/25/17 History Hfa] RX: Darunavir/Cobicistat 1 each PO DAILY 03/06/17 04/01/17 03/29/17 History [Prezcobix 800 mg-150 mg Tablet] RX: Dolutegravir Sodium [Tivicay] 50 mg PO DAILY 03/06/17 04/01/17 03/29/17 History RX: Fenofibrate Nanocrystallized 145 mg PO DAILY 03/06/17 04/01/17 03/29/17 History [Fenofibrate] RX: Fluticasone (Nf) [Flovent 220 1 puff INHALATION DAILY 03/06/17 04/01/17 History MCG/PUFF HFA] RX: Lisinopril [Zestril TAB] 20 mg PO QDAY 03/06/17 04/01/17 03/29/17 History RX: Morphine Sulfate [Morphine 15 mg PO Q12HR 03/06/17 04/01/17 03/29/17 History Sulfate ER] RX: NIFEdipine [Nifedipine ER] 60 mg PO DAILY 03/06/17 04/01/17 03/29/17 History RX: lamiVUDine/ZIDOVUDINE (NF) 1 each PO BID 03/06/17 04/01/17 03/29/17 History [COMBIVIR 150-300 mg (NF)] RX: Apixaban [Eliquis] 5 mg PO BID #60 tablet 03/09/17 04/01/17 03/29/17 Rx RX: Gabapentin [Neurontin] 300 mg PO Q8HR #90 capsule 03/09/17 04/01/17 Rx RX: Aspirin EC [Aspirin Enteric 81 mg PO QDAY tablet 03/24/17 04/01/17 Rx Coated TAB] RX: Clopidogrel [Plavix] 75 mg PO QDAY #30 tablet 03/24/17 04/01/17 03/29/17 Rx RX: Levofloxacin [Levaquin TAB] 750 mg PO Q24H #14 tablet 03/24/17 04/01/17 Rx RX: Potassium Chloride [K-Dur] 40 meq PO QDAY #14 tablet 03/24/17 04/01/1703/29 Rx RX: Acetaminophen [Acetaminophen 650 mg PO Q4H PRN tablet 04/04/17 Unknown Rx TAB] RX: Bisacodyl [Dulcolax suppos] 10 mg [place] QDAY PRN supp.rect 04/04/17 Unknown Rx RX: HYDROcodone/APAP 5-325 [[place] 2 each PO Q6H PRN #20 tablet 04/04/17 Unknown Rx 5-325 mg TAB] Active Meds: Active Medications Acetaminophen (Tylenol) 650 mg PO Q4H PRN PRN Reason: Pain MILD(1-3)/Fever >100.5/LYNCH Albuterol (Proventil) 2.5 mg IH Q4HRT PRN PRN Reason: Shortness Of Breath Albuterol/Ipratropium (Duoneb *Not For Prn Use*) 1 ampul IH Q6HRT [facility] Last Admin: 04/16/17 13:46 Dose: Not Given Aspirin (Halfprin Ec) 81 mg PO QDAY [facility] Last Admin: 04/16/17 11:37 Dose: 81 mg Bisacodyl (Dulcolax) 10 mg [place] QDAY PRN PRN Reason: Constipation unrelieved by MOM Budesonide (Pulmicort) 0.5 mg IH Q12HRT [facility] Last Admin: 04/16/17 07:48 Dose: Not Given Clopidogrel Bisulfate (Plavix) 75 mg PO QDAY [facility] Last Admin: 04/16/17 11:37 Dose: 75 mg Dextrose (D50w (25gm) Syringe) 50 ml IV PRN PRN PRN Reason: Hypoglycemia Famotidine (Pepcid) 20 mg IV DAILY [facility] Last Admin: 04/16/17 11:37 Dose: 20 mg Fenofibrate (Tricor) 145 mg PO DAILY [facility] Last Admin: 04/16/17 11:37 Dose: 145 mg Gabapentin (Neurontin) 300 mg PO Q8HR [facility] Last Admin: 04/16/17 13:38 Dose: 300 mg Heparin Sodium (Porcine) (Heparin) 5,000 unit SUB-Q Q8HR [facility] Last Admin: 04/16/17 13:38 Dose: 5,000 unit Hydromorphone HCl (Dilaudid) 1 mg IV Q3H PRN PRN Reason: Pain , Severe (7-10) Dextrose/Sodium Chloride (D5ns) 1,000 mls @ 150 mls/hr IV DIRECT [facility] Last Admin: 04/16/17 12:23 Dose: 150 mls/hr Piperacillin Sod/Tazobactam Sod (Zosyn/Ns 2.25 Gm/50ml) 2.25 gm in 50 mls @ 100 mls/hr IV Q6H [facility] PRN Reason: Protocol Last Admin: 04/16/17 12:20 Dose: 100 mls/hr Sodium Bicarbonate 150 meq/ (Dextrose) 1,150 mls @ 75 mls/hr IV DIRECT [facility] Insulin Aspart (Novolog) 0 units SUB-Q ACHS [facility] PRN Reason: Protocol Last Admin: 04/16/17 12:15 Dose: Not Given Magnesium Hydroxide (Milk Of Magnesia) 30 ml PO Q4H PRN PRN Reason: Constipation Miscellaneous Medication (Darunavir/Cobicistat [Prezcobix 800 Mg-150 Mg Tablet] ) 1 each PO DAILY [facility] Miscellaneous Medication (Dolutegravir Sodium [Tivicay]) 50 mg PO DAILY [facility] Miscellaneous Medication (Lamivudine/Zidovudine (Nf) [Combivir 150-300 Mg (Nf)] ) 1 each PO BID [facility] Morphine Sulfate (Morphine) 2 mg IV Q4H PRN PRN Reason: Pain, Moderate (4-6) Morphine Sulfate (Ms Contin Er) 15 mg PO Q12HR [facility] Last Admin: 04/16/17 11:37 Dose: 15 mg Ondansetron HCl (Zofran) 4 mg IV Q8H PRN PRN Reason: N/V unrelieved by Roseanne Vancomycin HCl (Vancomycin Pharmacy To Dose) 1 each IV PKCONSULT [facility] PRN Reason: Protocol Review of Systems All systems: negative Constitutional: fever, chills, fatigue, weakness Cardiovascular: edema Gastrointestinal: nausea Exam - Vital Signs Vital signs: Vital Signs Temp Pulse Resp BP Pulse Ox 100.3 F H 120 H 16 103/45 95 04/15/17 18:17 04/15/17 18:17 04/15/17 18:17 04/15/17 18:17 04/15/17 18:17 - General Appearance General appearance: well-developed, well-nourished, appears stated age EENT: ATNC, PERRL, mucous membranes moist Neck: Present: neck supple Respiratory: Clear to Ascultation Heart: regular, S1S2 Gastrointestinal: Present: normoactive bowel sounds Integumentary: no rash, other (s/p R BKA) Neurologic: no focal deficit, alert and oriented x3, strength 5/5, CN 3-12 intact Psychiatric: mood/affect appropriate, cooperative Results - Lab Results 04/16/17 02:57 04/16/17 02:57 Most recent lab results Calcium 8.7 mg/dL (8.4-10.2) 04/16/17 02:57 Phosphorus 5.70 mg/dL (2.5-4.5) H 04/16/17 02:57 Magnesium 1.50 mg/dL (1.7-2.3) L 04/16/17 02:57 Laboratory Tests 04/15/17 04/15/17 04/15/17 19:18 Unknown Unknown POC ABG pH POC ABG pCO2 POC ABG pO2 POC ABG HCO3 POC ABG Total CO2 POC ABG O2 Sat POC ABG Base Excess FiO2 Phosphorus Magnesium Iron TIBC Ferritin Total Bilirubin 0.30 AST 12 ALT < 5 L Alkaline Phosphatase 56 Total Creatine Kinase 47 CK-MB (CK-2) CK-MB (CK-2) Rel Index Troponin T Total Protein Albumin Albumin/Globulin Ratio Vitamin B12 Folate TSH Urine Color Yellow Urine Turbidity Clear Urine pH 5.0 Ur Specific [place] 1.015 Urine Protein <15 mg/dl Urine Glucose (UA) Neg Urine Ketones Neg Urine Blood Neg Urine Nitrite Neg Urine Bilirubin Neg Urine Urobilinogen < 2.0 Ur Leukocyte Esterase Mod Urine WBC (Auto) 12.0 H Urine RBC (Auto) 4.0 U Epithel Cells (Auto) 5.0 Urine Bacteria (Auto) 2+ Hyaline Casts 1 Urine Yeast (Budding) 2+ Urine Opiates Screen Presumptive positive Urine Methadone Screen Presumptive negative Ur Barbiturates Screen Presumptive negative Ur Phencyclidine Scrn Presumptive negative Ur Amphetamines Screen Presumptive negative U Benzodiazepines Scrn Presumptive negative Urine Cocaine Screen Presumptive negative U Marijuana (THC) Screen Presumptive negative 04/16/17 04/16/17 04/16/17 02:57 02:57 02:57 POC ABG pH POC ABG pCO2 POC ABG pO2 POC ABG HCO3 POC ABG Total CO2 POC ABG O2 Sat POC ABG Base Excess FiO2 Phosphorus Magnesium Iron 35 L TIBC 214 L Ferritin 1264.0 H Total Bilirubin AST ALT Alkaline Phosphatase Total Creatine Kinase CK-MB (CK-2) CK-MB (CK-2) Rel Index Troponin T Total Protein Albumin Albumin/Globulin Ratio Vitamin B12 317.8 Folate TSH Urine Color Urine Turbidity Urine pH Ur Specific [place] Urine Protein Urine Glucose (UA) Urine Ketones Urine Blood Urine Nitrite Urine Bilirubin Urine Urobilinogen Ur Leukocyte Esterase Urine WBC (Auto) Urine RBC (Auto) U Epithel Cells (Auto) Urine Bacteria (Auto) Hyaline Casts Urine Yeast (Budding) Urine Opiates Screen Urine Methadone Screen Ur Barbiturates Screen Ur Phencyclidine Scrn Ur Amphetamines Screen U Benzodiazepines Scrn Urine Cocaine Screen U Marijuana (THC) Screen 04/16/17 04/16/17 04/16/17 02:57 02:57 02:57 POC ABG pH POC ABG pCO2 POC ABG pO2 POC ABG HCO3 POC ABG Total CO2 POC ABG O2 Sat POC ABG Base Excess FiO2 Phosphorus 5.70 H Magnesium 1.50 L Iron TIBC Ferritin Total Bilirubin 0.30 AST 10 ALT Alkaline Phosphatase 50 Total Creatine Kinase CK-MB (CK-2) CK-MB (CK-2) Rel Index Troponin T Total Protein 5.8 L Albumin 2.7 L Albumin/Globulin Ratio 0.9 Vitamin B12 Folate 8.30 TSH 1.220 Urine Color Urine Turbidity Urine pH Ur Specific [place] Urine Protein Urine Glucose (UA) Urine Ketones Urine Blood Urine Nitrite Urine Bilirubin Urine Urobilinogen Ur Leukocyte Esterase Urine WBC (Auto) Urine RBC (Auto) U Epithel Cells (Auto) Urine Bacteria (Auto) Hyaline Casts Urine Yeast (Budding) Urine Opiates Screen Urine Methadone Screen Ur Barbiturates Screen Ur Phencyclidine Scrn Ur Amphetamines Screen U Benzodiazepines Scrn Urine Cocaine Screen U Marijuana (THC) Screen 04/16/17 04/16/17 04/16/17 04:47 06:00 12:01 POC ABG pH 7.168 L POC ABG pCO2 27.8 L POC ABG pO2 71 L POC ABG HCO3 10.1 POC ABG Total CO2 11 POC ABG O2 Sat 90 POC ABG Base Excess -18 FiO2 21 Phosphorus Magnesium Iron TIBC Ferritin Total Bilirubin AST ALT Alkaline Phosphatase Total Creatine Kinase 38 35 CK-MB (CK-2) 2.5 3.1 CK-MB (CK-2) Rel Index 6.5 H 8.8 H Troponin T 0.061 H 0.054 H Total Protein Albumin Albumin/Globulin Ratio Vitamin B12 Folate TSH Urine Color Urine Turbidity Urine pH Ur Specific [place] Urine Protein Urine Glucose (UA) Urine Ketones Urine Blood Urine Nitrite Urine Bilirubin Urine Urobilinogen Ur Leukocyte Esterase Urine WBC (Auto) Urine RBC (Auto) U Epithel Cells (Auto) Urine Bacteria (Auto) Hyaline Casts Urine Yeast (Budding) Urine Opiates Screen Urine Methadone Screen Ur Barbiturates Screen Ur Phencyclidine Scrn Ur Amphetamines Screen U Benzodiazepines Scrn Urine Cocaine Screen U Marijuana (THC) Screen Assessment and Plan - Patient Problems (1) Acute kidney injury Current Visit: Yes Status: Acute Plan to address problem: suspect acute kidney injury most likely due to pre-renal azotemia in the setting of post-op infection/sepsis, to rule out acute tubular necrosis. UA shows no evidence of significant proteinuria or hematuria, I do not suspect acute glomerular injury. check urine protein/cr ratio, urine lytes. cont IVF with D5W + 150meq Na bicarb at 75ml/hr K improving on bicarb gtt cont supportive care for MELQUIADES avoid further nephrotoxins, NSAIDs, IV contrast will monitor lytes and renal parameters and make further recommendations D/w Dr Ramirez (2) Metabolic acidosis Current Visit: Yes Status: Acute Plan to address problem: uremic acidosis in the setting of MELQUIADES contributing, lactic acid level only 0.6. cont bicarb gtt (3) Hyperkalemia Current Visit: Yes Status: Acute Plan to address problem: due to metabolic acidosis and decreased distal tubular Na delivery in the setting of MELQUIADES improving on bicarb gtt. cont low K diet (4) Hypertensive chronic kidney disease with stage 1 through stage 4 chronic kidney disease, or unspecified chronic kidney disease Current Visit: Yes Status: Acute Plan to address problem: monitor BP on current meds (5) HIV (human immunodeficiency virus infection) Current Visit: Yes Status: Acute Plan to address problem: cont ART (6) Post op infection Current Visit: Yes Status: Acute Plan to address problem: vascular surgery consult pending to evaluate R BKA stump (7) Chronic kidney disease (CKD), stage III (moderate) Onset Date: Unknown Current Visit: No Status: Chronic Plan to address problem: supportive care for CKD
[2017-04-16 14:21] LABS: Creatine Kinase MB 3.1 ng/mL (0.0-4.0)
[2017-04-16 19:48] LABS: Creatine Kinase MB 2.7 ng/mL (0.0-4.0)
[2017-04-17] MEDS: DUONEB *Not for PRN Use IH SCH ×4 (03:03→21:12)
[2017-04-17] MEDS: D5NS 1,000 ML IV SCH (05:12)
[2017-04-17] MEDS: NEURONTIN PO SCH ×3 (05:24→20:59)
[2017-04-17 05:25] LABS: Basophils % (Auto) 0.8 % (0.0-1.8); Eosinophils # (Auto) 0.1 K/mm3 (0.0-0.4); Eosinophils % (Auto) 2.9 % (0.0-4.3); Hematocrit 21.5 % (30.3-42.9); Hemoglobin 7.1 gm/dl (10.1-14.3); Lymphocytes % (Auto) 25.8 % (13.4-35.0); Mean Corpuscular HGB Conc 33 % (30-34); Mean Corpuscular Hemoglobin 32 pg (28-32); Mean Corpuscular Volume 96 fl (79-97); Monocytes # (Auto) 0.3 K/mm3 (0.0-0.8); Platelet Count 405 K/mm3 (140-440); Red Blood Count 2.25 M/mm3 (3.65-5.03)
[2017-04-17] MEDS: MORPHINE IV PRN ×2 (05:25→12:19)
[2017-04-17 05:28] LABS: Red Cell Distribution Width 22.9 % (13.2-15.2)
[2017-04-17] MEDS: HEPARIN SUB-Q SCH ×3 (05:28→21:00)
[2017-04-17] MEDS: ZOSYN/NS 2.25 GM/50ML 2.25 GM/50 ML BAG IV SCH ×4 (05:32→23:38)
[2017-04-17 05:42] LABS: INR 1.13 (0.87-1.13)
[2017-04-17 05:53] LABS: Albumin 2.7 g/dL (3.9-5); BUN/Creatinine Ratio 19; Blood Urea Nitrogen 31 mg/dL (7-17); Calcium 8.8 mg/dL (8.4-10.2); Hemolysis Index 1
[2017-04-17 07:36] LABS: Alanine Aminotransferase < 5 units/L (7-56)
[2017-04-17] MEDS: NOVOLOG SUB-Q SCH ×4 (08:47→23:41)
[2017-04-17] MEDS: MS CONTIN ER PO SCH ×2 (09:21→20:59)
[2017-04-17] MEDS: TRICOR PO SCH (09:21)
[2017-04-17] MEDS: HALFPRIN EC PO SCH (09:21)
[2017-04-17] MEDS: PLAVIX PO SCH (09:22)
[2017-04-17] MEDS: PEPCID IV SCH (09:25)
[2017-04-17] MEDS: PULMICORT IH SCH ×2 (09:33→21:12)
--- NOTE | 2017-04-17 10:33 | Progress Note ---
Assessment and Plan - Patient Problems (1) Acute kidney injury Current Visit: Yes Status: Acute Plan to address problem: suspect acute kidney injury most likely due to pre-renal azotemia in the setting of post-op infection/sepsis, to rule out acute tubular necrosis. UA shows no evidence of significant proteinuria or hematuria, I do not suspect acute glomerular injury. Renal function improving on IVF, change to d51/2NS cont supportive care for MELQUIADES avoid further nephrotoxins, NSAIDs, IV contrast will monitor lytes and renal parameters and make further recommendations (2) Metabolic acidosis Current Visit: Yes Status: Acute Plan to address problem: improved on bicarb gtt (3) Hyperkalemia Current Visit: Yes Status: Acute Plan to address problem: due to metabolic acidosis and decreased distal tubular Na delivery in the setting of MELQUIADES improving on bicarb gtt. cont low K diet (4) Hypertensive chronic kidney disease with stage 1 through stage 4 chronic kidney disease, or unspecified chronic kidney disease Current Visit: Yes Status: Acute Plan to address problem: monitor BP on current meds (5) HIV (human immunodeficiency virus infection) Current Visit: Yes Status: Acute Plan to address problem: cont ART (6) Post op infection Current Visit: Yes Status: Acute Plan to address problem: vascular surgery consult pending to evaluate R BKA stump (7) Chronic kidney disease (CKD), stage III (moderate) Onset Date: Unknown Current Visit: No Status: Chronic Plan to address problem: supportive care for CKD Subjective Date of service: 04/17/17 Principal diagnosis: MELQUIADES Interval history: Pt awake, alert, in no acute respiratory distress Objective - Vital Signs Vital signs: Vital Signs - 12hr 04/16/17 04/17/17 04/17/17 23:04 03:34 05:25 Temperature 98.4 F Pulse Rate 104 H Respiratory 18 17 16 Rate Blood Pressure 135/67 O2 Sat by Pulse 100 Oximetry 04/17/17 08:27 Temperature 98.4 F Pulse Rate Respiratory 16 Rate Blood Pressure 144/65 O2 Sat by Pulse Oximetry - General Appearance General appearance: well-developed, appears stated age, chronically ill EENT: ATNC, PERRL, mucous membranes moist Neck: no JVD Respiratory: Present: Clear to Ascultation Cardiology: regular, S1S2 Gastrointestinal: normoactive bowel sounds Integumentary: no rash, other (R BKA ) Neurologic: no focal deficit, alert and oriented x3, strength 5/5, CN 3-12 intact Psychiatric: mood/affect appropriate, cooperative - Lab 04/17/17 05:02 04/17/17 05:02 Most recent lab results Calcium 8.8 mg/dL (8.4-10.2) 04/17/17 05:02 Phosphorus 5.70 mg/dL (2.5-4.5) H 04/16/17 02:57 Magnesium 1.50 mg/dL (1.7-2.3) L 04/16/17 02:57
[2017-04-17] MEDS: D5/0.45NS 1,000 ML IV SCH (10:46)
[2017-04-17] MEDS: VANCOMYCIN/0.45 NS 1 GM/250 ML 1 GM/250 ML BAG IV SCH (10:46)
--- NOTE | 2017-04-17 11:49 | Progress Note ---
Assessment and Plan 56-year-old female transferred from [facility] and h/o HIV with fever possible altered mental status patient is awake and alert and minimally verbal. Family states she is on antiretrovirals and her counts have been good. She does take L Song. Papers from [place] just state that she was a little bit confused with a fever status post her BKA that she is in rehabilitation for at their facility. BKA was at this facility in February. She has a history of CK D stage III with a history of arthritis ,asthma, CHF, COPD, DVT, dementia , diabetes ,headaches ,hypertension, PE, stents internal defibrillator. Patient arrives awake and alert stable airway blood pressure 103/45 temp 100.3 heart rate 120 room air sat 95. c/c complaitn was decreased responsiveness Assessment * Sepsis likely to 2 postsurgical infection * Status post right BKA * Cellulitis and stump infection * HIV with undetectable viral load and CD4 count of 277 as of 03/15/2017 * Acute kidney injury likely ATN * Anemia * Hyperkalemia corrected * hypernatremia * Acute kidney injury Plan Empiric antibiotics in the form of vancomycin and Zosyn pharmacy to dose the same blood cultures drawn will follow up results modify antibiotic treatment based culture and sensitivity data. Aggressive IV fluids monitored and function with IV fluid rehydration. Renally dose all medications Avoid nephrotoxins and NSAIDs. Monitor volume status ins and outs electrolytes Anemia studies as ordered follow-up results treated appropriately as indicated Monitor CBC and electrolytes Free water Replace electrolytes when necessary as per protocol DVT GI prophylaxis as ordered She did abdomen and pelvis ordered. Showed physical retention with mild intestinal distention ID following for Sepsis and HIV Subjective Date of service: 04/17/17 Principal diagnosis: Sepsis, HIV, MELQUIADES, infect right BKA Interval history: Lying quietly in bed, no new complaints. Does have pain medication, morphine, per patient's and therefore sedated. No fever or chills. Reviewed Laboratory and radiological data. Discussed with the patient's nurse. Objective - Exam Narrative Exam: Constitutional: Well-nourished well-developed. In no distress Head: Normocephalic atraumatic Eyes: Pupils are equal round and reactive to light Nose: No enlarged turbinates, no septal deviation. Mouth: Moist mucous membranes. Neck: Supple no thyromegaly. No bruit. No JVD Heart: Regular rate and rhythm, S1-S2 abnormal. No rubs murmurs or gallop Lungs: Clear to auscultation bilaterally no rales or rhonchi Abdomen: Soft, nontender. Bowel sound are present. Extremities: Right BKA No edema no cyanosis and no clubbing of left LE. Neuro: Sedated. No focal sensory or motor deficit. Skin: No rashes no hyperemic spots Psychiatry: Euthymic. Calm. - Constitutional Vitals: Vital Signs - 12hr 04/17/17 04/17/17 04/17/17 03:34 05:25 08:27 Temperature 98.4 F 98.4 F Pulse Rate 104 H Respiratory 17 16 16 Rate Blood Pressure 135/67 144/65 O2 Sat by Pulse 100 Oximetry - Labs CBC & Chem 7: 04/17/17 05:02 04/17/17 05:02 Labs: Abnormal lab results 04/16/17 04/16/17 04/16/17 Range/Units 12:01 15:50 17:52 WBC (4.5-11.0) K/mm3 RBC (3.65-5.03) M/mm3 Hgb (10.1-14.3) gm/dl Hct (30.3-42.9) % RDW (13.2-15.2) % [place] % (Auto) (0.0-7.3) % Lymph # (1.2-5.4) K/mm3 PT (12.2-14.9) Sec. Sodium (137-145) mmol/L Chloride (98-107) mmol/L Carbon Dioxide (22-30) mmol/L BUN (7-17) mg/dL Creatinine (0.7-1.2) mg/dL Glucose (65-100) mg/dL POC Glucose 131 H (70-105) ALT (7-56) units/L CK-MB (CK-2) Rel Index 8.8 H 9.0 H (0-4) Troponin T 0.054 H 0.041 H D (0.00-0.029) ng/mL Total Protein (6.3-8.2) g/dL Albumin (3.9-5) g/dL 04/16/17 04/17/17 04/17/17 Range/Units 22:06 05:02 05:02 WBC 3.8 L (4.5-11.0) K/mm3 RBC 2.25 L (3.65-5.03) M/mm3 Hgb 7.1 L (10.1-14.3) gm/dl Hct 21.5 L (30.3-42.9) % RDW 22.9 H (13.2-15.2) % [place] % (Auto) 8.0 H (0.0-7.3) % Lymph # 1.0 L (1.2-5.4) K/mm3 PT 15.1 H (12.2-14.9) Sec. Sodium (137-145) mmol/L Chloride (98-107) mmol/L Carbon Dioxide (22-30) mmol/L BUN (7-17) mg/dL Creatinine (0.7-1.2) mg/dL Glucose (65-100) mg/dL POC Glucose 113 H (70-105) ALT (7-56) units/L CK-MB (CK-2) Rel Index (0-4) Troponin T (0.00-0.029) ng/mL Total Protein (6.3-8.2) g/dL Albumin (3.9-5) g/dL 18 04/17/17 Range/Units 05:02 11:33 WBC (4.5-11.0) K/mm3 RBC (3.65-5.03) M/mm3 Hgb (10.1-14.3) gm/dl Hct (30.3-42.9) % RDW (13.2-15.2) % [place] % (Auto) (0.0-7.3) % Lymph # (1.2-5.4) K/mm3 PT (12.2-14.9) Sec. Sodium 146 H (137-145) mmol/L Chloride 115.8 H (98-107) mmol/L Carbon Dioxide 15 L D (22-30) mmol/L BUN 31 H (7-17) mg/dL Creatinine 1.6 H (0.7-1.2) mg/dL Glucose 123 H (65-100) mg/dL POC Glucose 123 H (70-105) ALT < 5 L (7-56) units/L CK-MB (CK-2) Rel Index (0-4) Troponin T (0.00-0.029) ng/mL Total Protein 5.6 L (6.3-8.2) g/dL Albumin 2.7 L (3.9-5) g/dL
[2017-04-17] MEDS ORDERED: NACL 0.9% 500 ML 500 ML IV NR (12:42)
[2017-04-17 18:57] LABS: Creatinine,Urine 50.9 mg/dL (0.1-20.0)
[2017-04-17] MEDS: TYLENOL PO PRN (21:04)
[2017-04-18] MEDS: DUONEB *Not for PRN Use IH SCH ×4 (03:52→19:44)
[2017-04-18 05:13] LABS: Hematocrit 26.9 % (30.3-42.9); Hemoglobin 9.2 gm/dl (10.1-14.3); Mean Corpuscular HGB Conc 34 % (30-34); Mean Corpuscular Hemoglobin 32 pg (28-32); Mean Corpuscular Volume 93 fl (79-97); Platelet Count 369 K/mm3 (140-440); Red Blood Count 2.89 M/mm3 (3.65-5.03)
[2017-04-18 05:22] LABS: Albumin 2.4 g/dL (3.9-5); BUN/Creatinine Ratio 17; Blood Urea Nitrogen 20 mg/dL (7-17); Calcium 8.7 mg/dL (8.4-10.2); Hemolysis Index 1
[2017-04-18 05:23] LABS: Red Cell Distribution Width 20.4 % (13.2-15.2)
[2017-04-18 05:28] LABS: Alanine Aminotransferase < 5 units/L (7-56)
[2017-04-18] MEDS: HEPARIN SUB-Q SCH ×3 (05:36→23:06)
[2017-04-18] MEDS: ZOSYN/NS 2.25 GM/50ML 2.25 GM/50 ML BAG IV SCH (05:36)
[2017-04-18] MEDS: NEURONTIN PO SCH ×3 (05:37→23:06)
[2017-04-18 07:12] LABS: Band Neutrophils # (Manual) 0.1 K/mm3; Basophils % (Manual) 0 % (0.0-1.8); Total Cells Counted 100
[2017-04-18 07:13] LABS: Anisocytosis 1+; Ovalocytes Few
[2017-04-18] MEDS: PULMICORT IH SCH ×2 (07:51→19:44)
[2017-04-18] MEDS: NOVOLOG SUB-Q SCH ×4 (09:04→23:07)
--- NOTE | 2017-04-18 09:32 | Progress Note ---
Assessment and Plan Assessment and plan: 56-year-old female transferred from [facility] and h/o HIV with fever possible altered mental status patient is awake and alert and minimally verbal. Family states she is on antiretrovirals and her counts have been good. She does take L Song. Papers from [place] just state that she was a little bit confused with a fever status post her BKA that she is in rehabilitation for at their facility. BKA was at this facility in February. She has a history of CK D stage III with a history of arthritis ,asthma, CHF, COPD, DVT, dementia , diabetes ,headaches ,hypertension, PE, stents internal defibrillator. Patient arrives awake and alert stable blood pressure 103/45 temp 100.3 heart rate 120 room air sat 95. c/c complaitn was decreased responsiveness Assessment * Sepsis with leukopenia * Status post right BKA in February 2017 * Severe metabolic acidosis * Severe constipation * Hypertension * Acute metabolic encephalopathy improving * Cellulitis and stump infection * HIV with undetectable viral load and CD4 count of 277 as of 03/15/2017 * Acute kidney injury on CKD stage III likely vasomotor nephropathy, * Anemia * Hyperkalemia corrected * hypernatremia Plan Agree with change of fluids to D5 half normal saline We'll reconsult vascular to evaluate BKA. Empiric antibiotics in the form of vancomycin and Zosyn pharmacy to dose the same blood cultures drawn will follow up results modify antibiotic treatment based culture and sensitivity data. Cultures so far negative. We'll obtain wound care consult Aggressive IV fluids monitored and function with IV fluid rehydration. Renally dose all medications Avoid nephrotoxins and NSAIDs. Monitor volume status ins and outs electrolytes Anemia studies as ordered follow-up results treated appropriately as indicated Monitor CBC and electrolytes Judicious use of pain medication. Continue ART. If no clinical improvement will obtain ID consultation. Free water Replace electrolytes when necessary as per protocol DVT GI prophylaxis as ordered History Interval history: Patient seen and examined this morning in nonacute distress still with mild bleeding in the left BKA stump area. She denies any chest pain, nausea vomiting or diarrhea. Family feels she is still confused. She still does have tachycardia and low-grade temp. Hospitalist Physical - Physical exam Narrative exam: VITAL SIGNS: Reviewed. GENERAL: The patient appeared well nourished and normally developed. Vital signs as documented. HEAD: No signs of head trauma. EYES: Pupils are equal. Extraocular motions intact. EARS: Hearing grossly intact. MOUTH: Oropharynx is normal. NECK: No adenopathy, no JVD. CHEST: Chest with clear breath sounds bilaterally. No wheezes, rales, or rhonchi. CARDIAC: Regular rate and rhythm. S1 and S2, without murmurs, gallops, or rubs. VASCULAR: No Edema. Peripheral pulses trend in the left lower extremity ABDOMEN: Soft, without detectable tenderness. No sign of distention. No rebound or guarding, and no masses palpated. Bowel Sounds normal. MUSCULOSKELETAL: Right lower extremity BKA with yuliya in place and the sinus tract noted. Extremities without clubbing, cyanosis or edema. NEUROLOGIC EXAM: Alert and oriented x 3. No focal sensory or strength deficits. Speech normal. Follows commands. PSYCHIATRIC: Mood normal. SKIN: Right lower BKA. With yuliya in place with yuliya in place - Constitutional Vitals: Temp Pulse Resp BP Pulse Ox 99.1 F 85 20 169/74 97 04/18/17 07:53 04/18/17 07:53 04/18/17 07:53 04/18/17 07:53 04/18/17 07:53 Results - Labs CBC & Chem 7: 04/18/17 04:42 04/18/17 04:42 Labs: Laboratory Last Values WBC 3.8 K/mm3 (4.5-11.0) L 04/18/17 04:42 RBC 2.89 M/mm3 (3.65-5.03) L 04/18/17 04:42 Hgb 9.2 gm/dl (10.1-14.3) L 04/18/17 04:42 Hct 26.9 % (30.3-42.9) L 04/18/17 04:42 MCV 93 fl (79-97) 04/18/17 04:42 MCH 32 pg (28-32) 04/18/17 04:42 MCHC 34 % (30-34) 04/18/17 04:42 RDW 20.4 % (13.2-15.2) H 04/18/17 04:42 Plt Count 369 K/mm3 (140-440) 04/18/17 04:42 Lymph % (Auto) 25.8 % (13.4-35.0) 04/17/17 05:02 [place] % (Auto) 8.0 % (0.0-7.3) H 04/17/17 05:02 Eos % (Auto) 2.9 % (0.0-4.3) 04/17/17 05:02 Baso % (Auto) 0.8 % (0.0-1.8) 04/17/17 05:02 Lymph # 1.0 K/mm3 (1.2-5.4) L 04/17/17 05:02 [place] # 0.3 K/mm3 (0.0-0.8) 04/17/17 05:02 Eos # 0.1 K/mm3 (0.0-0.4) 04/17/17 05:02 Baso # 0.0 K/mm3 (0.0-0.1) 04/17/17 05:02 Add Manual Diff Complete 04/18/17 04:42 Total Counted 100 04/18/17 04:42 Seg Neutrophils % 62.5 % (40.0-70.0) 04/17/17 05:02 Seg Neuts % (Manual) 63.0 % (40.0-70.0) 04/18/17 04:42 Band Neutrophils % 2.0 % 04/18/17 04:42 Lymphocytes % (Manual) 23.0 % (13.4-35.0) 04/18/17 04:42 Reactive Lymphs % (Man) 0 % 04/18/17 04:42 Monocytes % (Manual) 5.0 % (0.0-7.3) 04/18/17 04:42 Eosinophils % (Manual) 7.0 % (0.0-4.3) H 04/18/17 04:42 Basophils % (Manual) 0 % (0.0-1.8) 04/18/17 04:42 Metamyelocytes % 0 % 04/18/17 04:42 Myelocytes % 0 % 04/18/17 04:42 Promyelocytes % 0 % 04/18/17 04:42 Blast Cells % 0 % 04/18/17 04:42 Nucleated RBC % Not Reportable 04/18/17 04:42 Seg Neutrophils # 2.4 K/mm3 (1.8-7.7) 04/17/17 05:02 Seg Neutrophils # Man 2.4 K/mm3 (1.8-7.7) 04/18/17 04:42 Band Neutrophils # 0.1 K/mm3 04/18/17 04:42 Lymphocytes # (Manual) 0.9 K/mm3 (1.2-5.4) L 04/18/17 04:42 Abs React Lymphs (Man) 0.0 K/mm3 04/18/17 04:42 Monocytes # (Manual) 0.2 K/mm3 (0.0-0.8) 04/18/17 04:42 Eosinophils # (Manual) 0.3 K/mm3 (0.0-0.4) 04/18/17 04:42 Basophils # (Manual) 0.0 K/mm3 (0.0-0.1) 04/18/17 04:42 Metamyelocytes # 0.0 K/mm3 04/18/17 04:42 Myelocytes # 0.0 K/mm3 04/18/17 04:42 Promyelocytes # 0.0 K/mm3 04/18/17 04:42 Blast Cells # 0.0 K/mm3 04/18/17 04:42 WBC Morphology Not Reportable 04/18/17 04:42 Hypersegmented Neuts Not Reportable 04/18/17 04:42 Hyposegmented Neuts Not Reportable 04/18/17 04:42 Hypogranular Neuts Not Reportable 04/18/17 04:42 Smudge Cells Not Reportable 04/18/17 04:42 Toxic Granulation Not Reportable 04/18/17 04:42 Toxic Vacuolation Not Reportable 04/18/17 04:42 Dohle Bodies Not Reportable 04/18/17 04:42 Pelger-Huet Anomaly Not Reportable 04/18/17 04:42 Elenita Rods Not Reportable 04/18/17 04:42 Platelet Estimate Appears normal 04/18/17 04:42 Clumped Platelets Not Reportable 04/18/17 04:42 Plt Clumps, EDTA Not Reportable 04/18/17 04:42 Large Platelets Not Reportable 04/18/17 04:42 Giant Platelets Not Reportable 04/18/17 04:42 Platelet Satelliting Not Reportable 04/18/17 04:42 Plt Morphology Comment Not Reportable 04/18/17 04:42 RBC Morphology Not Reportable 04/18/17 04:42 Dimorphic RBCs Not Reportable 04/18/17 04:42 Polychromasia Not Reportable 04/18/17 04:42 Hypochromasia Not Reportable 04/18/17 04:42 Poikilocytosis Not Reportable 04/18/17 04:42 Anisocytosis 1+ 04/18/17 04:42 Microcytosis Not Reportable 04/18/17 04:42 Macrocytosis Not Reportable 04/18/17 04:42 Spherocytes Not Reportable 04/18/17 04:42 Pappenheimer Bodies Not Reportable 04/18/17 04:42 Sickle Cells Not Reportable 04/18/17 04:42 Target Cells Not Reportable 04/18/17 04:42 Tear Drop Cells Not Reportable 04/18/17 04:42 Ovalocytes Few 04/18/17 04:42 Helmet Cells Not Reportable 04/18/17 04:42 [place] Bodies Not Reportable 04/18/17 04:42 [place] Rings Not Reportable 04/18/17 04:42 [place] Cells Not Reportable 04/18/17 04:42 Bite Cells Not Reportable 04/18/17 04:42 Crenated Cell Not Reportable 04/18/17 04:42 Elliptocytes Not Reportable 04/18/17 04:42 Acanthocytes (Spur) Not Reportable 04/18/17 04:42 Rouleaux Not Reportable 04/18/17 04:42 Hemoglobin C Crystals Not Reportable 04/18/17 04:42 Schistocytes Not Reportable 04/18/17 04:42 Malaria parasites Not Reportable 04/18/17 04:42 Willard Bodies Not Reportable 04/18/17 04:42 Hem Pathologist Commnt No 04/18/17 04:42 PT 15.1 Sec. (12.2-14.9) H 04/17/17 05:02 INR 1.13 (0.87-1.13) 04/17/17 05:02 POC ABG pH 7.168 (7.35-7.45) L 04/16/17 04:47 POC ABG pCO2 27.8 (35-45) L 04/16/17 04:47 POC ABG pO2 71 (80-105) L 04/16/17 04:47 POC ABG HCO3 10.1 04/16/17 04:47 POC ABG Total CO2 11 04/16/17 04:47 POC ABG O2 Sat 90 04/16/17 04:47 POC ABG Base Excess -18 04/16/17 04:47 FiO2 21 % 04/16/17 04:47 Sodium 149 mmol/L (137-145) H 04/18/17 04:42 Potassium 3.8 mmol/L (3.6-5.0) 04/18/17 04:42 Chloride 117.6 mmol/L (98-107) H 04/18/17 04:42 Carbon Dioxide 15 mmol/L (22-30) L 04/18/17 04:42 Anion Gap 20 mmol/L 04/18/17 04:42 BUN 20 mg/dL (7-17) H 04/18/17 04:42 Creatinine 1.2 mg/dL (0.7-1.2) 04/18/17 04:42 Estimated GFR 47 ml/min 04/18/17 04:42 BUN/Creatinine Ratio 17 % 04/18/17 04:42 Glucose 91 mg/dL (65-100) 04/18/17 04:42 POC Glucose 91 (70-105) 04/18/17 06:07 Hemoglobin A1c 5.3 % (4-6) 04/16/17 02:57 Lactic Acid 0.70 mmol/L (0.7-2.0) 04/16/17 06:00 Calcium 8.7 mg/dL (8.4-10.2) 04/18/17 04:42 Phosphorus 5.70 mg/dL (2.5-4.5) H 04/16/17 02:57 Magnesium 1.50 mg/dL (1.7-2.3) L 04/16/17 02:57 Iron 35 ug/dL (37-170) L 04/16/17 02:57 TIBC 214 mcg/dL (250-450) L 04/16/17 02:57 Ferritin 1264.0 ng/mL (13.0-400.0) H 04/16/17 02:57 Total Bilirubin 0.40 mg/dL (0.1-1.2) 04/18/17 04:42 AST 9 units/L (5-40) 04/18/17 04:42 ALT < 5 units/L (7-56) L 04/18/17 04:42 Alkaline Phosphatase 45 units/L (35-129) 04/18/17 04:42 Total Creatine Kinase 30 units/L (30-135) 04/16/17 17:52 CK-MB (CK-2) 2.7 ng/mL (0.0-4.0) 04/16/17 17:52 CK-MB (CK-2) Rel Index 9.0 (0-4) H 04/16/17 17:52 Troponin T 0.041 ng/mL (0.00-0.029) H D 04/16/17 17:52 Total Protein 5.1 g/dL (6.3-8.2) L 04/18/17 04:42 Albumin 2.4 g/dL (3.9-5) L 04/18/17 04:42 Albumin/Globulin Ratio 0.9 % 04/18/17 04:42 Triglycerides 257 mg/dL (2-149) H 04/15/17 19:18 Cholesterol 169 mg/dL (50-199) 04/15/17 19:18 LDL Cholesterol Direct 82 mg/dL (50-130) 04/15/17 19:18 HDL Cholesterol 36 mg/dL (40-59) L 04/15/17 19:18 Cholesterol/HDL Ratio 4.69 % 04/15/17 19:18 Vitamin B12 317.8 pg/mL (211-911) 04/16/17 02:57 Folate 8.30 ng/mL (7.3-26.0) 04/16/17 02:57 TSH 1.220 mlU/mL (0.270-4.200) 04/16/17 02:57 Urine Color Yellow (Yellow) 04/15/17 Unknown Urine Turbidity Clear (Clear) 04/15/17 Unknown Urine pH 5.0 (5.0-7.0) 04/15/17 Unknown Ur Specific [place] 1.015 (1.003-1.030) 04/15/17 Unknown Urine Protein <15 mg/dl mg/dL (Negative) 04/15/17 Unknown Urine Glucose (UA) Neg mg/dL (Negative) 04/15/17 Unknown Urine Ketones Neg mg/dL (Negative) 04/15/17 Unknown Urine Blood Neg (Negative) 04/15/17 Unknown Urine Nitrite Neg (Negative) 04/15/17 Unknown Urine Bilirubin Neg (Negative) 04/15/17 Unknown Urine Urobilinogen < 2.0 mg/dL (<2.0) 04/15/17 Unknown Ur Leukocyte Esterase Mod (Negative) 04/15/17 Unknown Urine WBC (Auto) 12.0 /HPF (0.0-6.0) H 04/15/17 Unknown Urine RBC (Auto) 4.0 /HPF (0.0-6.0) 04/15/17 Unknown U Epithel Cells (Auto) 5.0 /HPF (0-13.0) 04/15/17 Unknown Urine Bacteria (Auto) 2+ /HPF (Negative) 04/15/17 Unknown Hyaline Casts 1 /LPF 04/15/17 Unknown Urine Yeast (Budding) 2+ /HPF 04/15/17 Unknown Urine Creatinine 50.9 mg/dL (0.1-20.0) H 04/17/17 11:53 Urine Sodium 114 mmol/L 04/17/17 11:53 Urine Total Protein 12 mg/dL (5-11.8) H 04/17/17 11:53 Salicylates < 0.3 mg/dL (2.8-20.0) L 04/15/17 19:18 Urine Opiates Screen Presumptive positive 04/15/17 Unknown Urine Methadone Screen Presumptive negative 04/15/17 Unknown Acetaminophen < 15.0 ug/mL (10.0-30.0) 04/15/17 19:18 Ur Barbiturates Screen Presumptive negative 04/15/17 Unknown Ur Phencyclidine Scrn Presumptive negative 04/15/17 Unknown Ur Amphetamines Screen Presumptive negative 04/15/17 Unknown U Benzodiazepines Scrn Presumptive negative 04/15/17 Unknown Urine Cocaine Screen Presumptive negative 04/15/17 Unknown U Marijuana (THC) Screen Presumptive negative 04/15/17 Unknown Drugs of Abuse Note Disclamer 04/15/17 Unknown Plasma/Serum Alcohol < 0.01 % (0-0.07) 04/15/17 19:18 Blood Type O POSITIVE 04/17/17 07:05 Antibody Screen Negative 04/17/17 07:05 Crossmatch See Detail 04/17/17 07:05 - Imaging and Cardiology CT scan - abdomen: image reviewed (severe constipation)
--- NOTE | 2017-04-18 10:04 | Progress Note ---
Assessment and Plan - Patient Problems (1) Acute kidney injury Current Visit: Yes Status: Acute Plan to address problem: suspect acute kidney injury most likely due to pre-renal azotemia in the setting of post-op infection/sepsis, improving on IVF/ABXs cont d1/2NS cont supportive care for MELQUIADES avoid further nephrotoxins, NSAIDs, IV contrast will monitor lytes and renal parameters and make further recommendations recommend vascular surgery consult to evaluate R BKA stump (2) Metabolic acidosis Current Visit: Yes Status: Acute Plan to address problem: non AG, hyperchloremic met acidosis, cont D5 1/2NS, if serum bicarb remains low despite corrected hyperchloremia will start oral Na bicarb (3) Hyperkalemia Current Visit: Yes Status: Acute Plan to address problem: resolved (4) Hypertensive chronic kidney disease with stage 1 through stage 4 chronic kidney disease, or unspecified chronic kidney disease Current Visit: Yes Status: Acute Plan to address problem: monitor BP on current meds (5) HIV (human immunodeficiency virus infection) Current Visit: Yes Status: Acute Plan to address problem: cont ART (6) Post op infection Current Visit: Yes Status: Acute Plan to address problem: vascular surgery consult pending to evaluate R BKA stump (7) Chronic kidney disease (CKD), stage III (moderate) Onset Date: Unknown Current Visit: No Status: Chronic Subjective Date of service: 04/18/17 Principal diagnosis: Sepsis, HIV, MELQUIADES, infect right BKA Interval history: Pt awake, alert, in no acute respiratory distress Objective - Vital Signs Vital signs: Vital Signs - 12hr 04/18/17 04/18/17 04/18/17 04:19 04:33 07:53 Temperature 98.7 F 99.1 F Pulse Rate 91 H 85 Respiratory 17 20 Rate Blood Pressure 157/79 169/74 O2 Sat by Pulse 98 97 Oximetry - General Appearance General appearance: well-developed, appears stated age EENT: ATNC, PERRL, mucous membranes dry Neck: no JVD Respiratory: Present: Clear to Ascultation Cardiology: regular, S1S2 Gastrointestinal: normoactive bowel sounds Integumentary: no rash, other (R BKA ) Neurologic: no focal deficit, alert and oriented x3, strength 5/5, CN 3-12 intact Psychiatric: mood/affect appropriate, cooperative - Lab 04/18/17 04:42 04/18/17 04:42 Most recent lab results Calcium 8.7 mg/dL (8.4-10.2) 04/18/17 04:42 Phosphorus 5.70 mg/dL (2.5-4.5) H 04/16/17 02:57 Magnesium 1.50 mg/dL (1.7-2.3) L 04/16/17 02:57 Urine Creatinine 50.9 mg/dL (0.1-20.0) H 04/17/17 11:53 Urine Sodium 114 mmol/L 04/17/17 11:53 Urine Total Protein 12 mg/dL (5-11.8) H 04/17/17 11:53
[2017-04-18] MEDS: VANCOMYCIN/0.45 NS 1 GM/250 ML 1 GM/250 ML BAG IV SCH (10:59)
[2017-04-18] MEDS: HALFPRIN EC PO SCH (10:59)
[2017-04-18] MEDS: PLAVIX PO SCH (11:00)
[2017-04-18] MEDS: TRICOR PO SCH (11:00)
[2017-04-18] MEDS: MS CONTIN ER PO SCH ×2 (11:01→23:05)
[2017-04-18] MEDS: PEPCID IV SCH (11:01)
--- NOTE | 2017-04-18 12:23 | Consultation ---
History of Present Illness - Reason for Consult Consult date: 04/18/17 right groin wound - History of Present Illness Patient with history of peripheral vascular disease well known to our service with right below the knee amputation and right groin wound. She was recently discharged and sent to long-term acute care rehabilitation. Her wound VAC was removed. She presents with pink granulation tissue along the superior aspect of her wound and what appears to be a sinus track along the inferior aspect of the wound. No significant complaints of pain distal to this wound. Past History Past Medical History: HIV/AIDS, hypertension, PVD, renal failure Past Surgical History: , Other (R BKA in Feb 2017, h/o explorative laparotomy ) Social history: smoking. denies: alcohol abuse, prescription drug abuse, IV drug use Family history: no significant family history Medications and Allergies Allergies Allergy/AdvReac Type Severity Reaction Status Date / Time No Known Allergies Allergy Verified 03/06/17 13:12 Home Medications Medication Instructions Recorded Confirmed Last Taken Type Albuterol Sulfate [Ventolin Hfa] 18 gm IH Q4H PRN 03/06/17 04/01/17 03/25/17 History Darunavir/Cobicistat [Prezcobix 1 each PO DAILY 03/06/17 04/01/17 03/29/17 History 800 mg-150 mg Tablet] Dolutegravir Sodium [Tivicay] 50 mg PO DAILY 03/06/17 04/01/17 03/29/17 History Fenofibrate Nanocrystallized 145 mg PO DAILY 03/06/17 04/01/17 03/29/17 History [Fenofibrate] Fluticasone (Nf) [Flovent 220 1 puff INHALATION DAILY 03/06/17 04/01/17 History MCG/PUFF HFA] Lisinopril [Zestril TAB] 20 mg PO QDAY 03/06/17 04/01/17 03/29/17 History Morphine Sulfate [Morphine Sulfate 15 mg PO Q12HR 03/06/17 04/01/17 03/29/17 History ER] NIFEdipine [Nifedipine ER] 60 mg PO DAILY 03/06/17 04/01/17 03/29/17 History lamiVUDine/ZIDOVUDINE (NF) 1 each PO BID 03/06/17 04/01/17 03/29/17 History [COMBIVIR 150-300 mg (NF)] Apixaban [Eliquis] 5 mg PO BID #60 tablet 03/09/17 04/01/17 03/29/17 Rx Gabapentin [Neurontin] 300 mg PO Q8HR #90 capsule 03/09/17 04/01/17 03/29/17 Rx Aspirin EC [Aspirin Enteric Coated 81 mg PO QDAY tablet 03/24/17 04/01/1703/29 Rx TAB] Clopidogrel [Plavix] 75 mg PO QDAY #30 tablet 03/24/17 04/01/17 03/29/17 Rx Levofloxacin [Levaquin TAB] 750 mg PO Q24H #14 tablet 03/24/17 04/01/17 Rx Potassium Chloride [K-Dur] 40 meq PO QDAY #14 tablet 03/24/17 04/01/17 03/29/17 Rx Acetaminophen [Acetaminophen TAB] 650 mg PO Q4H PRN tablet 04/04/17 Unknown Rx Bisacodyl [Dulcolax suppos] 10 mg FL QDAY PRN supp.rect 04/04/17 Unknown Rx HYDROcodone/APAP 5-325 [[place] 2 each PO Q6H PRN #20 tablet 04/04/17 Unknown Rx 5-325 mg TAB] Active Meds: Active Medications Acetaminophen (Tylenol) 650 mg PO Q4H PRN PRN Reason: Pain MILD(1-3)/Fever >100.5/LYNCH Last Admin: 04/17/17 21:04 Dose: 650 mg Albuterol (Proventil) 2.5 mg IH Q4HRT PRN PRN Reason: Shortness Of Breath Albuterol/Ipratropium (Duoneb *Not For Prn Use*) 1 ampul IH Q6HRT [facility] Last Admin: 04/18/17 07:51 Dose: Not Given Aspirin (Halfprin Ec) 81 mg PO QDAY [facility] Last Admin: 04/18/17 10:59 Dose: 81 mg Bisacodyl (Dulcolax) 10 mg [place] QDAY PRN PRN Reason: Constipation unrelieved by MOM Budesonide (Pulmicort) 0.5 mg IH Q12HRT [facility] Last Admin: 04/18/17 07:51 Dose: Not Given Clopidogrel Bisulfate (Plavix) 75 mg PO QDAY [facility] Last Admin: 04/18/17 11:00 Dose: 75 mg Dextrose (D50w (25gm) Syringe) 50 ml IV PRN PRN PRN Reason: Hypoglycemia Famotidine (Pepcid) 20 mg IV DAILY [facility] Last Admin: 04/18/17 11:01 Dose: 20 mg Fenofibrate (Tricor) 145 mg PO DAILY [facility] Last Admin: 04/18/17 11:00 Dose: 145 mg Gabapentin (Neurontin) 300 mg PO Q8HR [facility] Last Admin: 04/18/17 05:37 Dose: 300 mg Heparin Sodium (Porcine) (Heparin) 5,000 unit SUB-Q Q8HR [facility] Last Admin: 04/18/17 05:36 Dose: 5,000 unit Hydromorphone HCl (Dilaudid) 1 mg IV Q3H PRN PRN Reason: Pain , Severe (7-10) Vancomycin HCl (Vancomycin/0.45 Ns 1 Gm/250 Ml) 1 gm in 250 mls @ 167.007 mls/ hr IV Q24H [facility] Last Admin: 04/18/17 10:59 Dose: 167.007 mls/hr Dextrose/Sodium Chloride (D5/0.45ns) 1,000 mls @ 75 mls/hr IV DIRECT [facility] Last Admin: 04/17/17 10:46 Dose: 75 mls/hr Piperacillin Sod/Tazobactam Sod (Zosyn/Ns 4.5gm/100ml) 4.5 gm in 100 mls @ 200 mls/hr IV Q8HR [facility] Insulin Aspart (Novolog) 0 units SUB-Q ACHS [facility] PRN Reason: Protocol Last Admin: 04/18/17 09:04 Dose: Not Given Magnesium Hydroxide (Milk Of Magnesia) 30 ml PO Q4H PRN PRN Reason: Constipation Miscellaneous Medication (Darunavir/Cobicistat [Prezcobix 800 Mg-150 Mg Tablet] ) 1 each PO DAILY [facility] Miscellaneous Medication (Dolutegravir Sodium [Tivicay]) 50 mg PO DAILY [facility] Miscellaneous Medication (Lamivudine/Zidovudine (Nf) [Combivir 150-300 Mg (Nf)] ) 1 each PO BID [facility] Morphine Sulfate (Morphine) 2 mg IV Q4H PRN PRN Reason: Pain, Moderate (4-6) Last Admin: 02/18/18 12:19 Dose: 2 mg Morphine Sulfate (Ms Contin Er) 15 mg PO Q12HR [facility] Last Admin: 04/18/17 11:01 Dose: 15 mg Ondansetron HCl (Zofran) 4 mg IV Q8H PRN PRN Reason: N/V unrelieved by Roseanne Vancomycin HCl (Vancomycin Pharmacy To Dose) 1 each IV PKCONSULT LANETTE PRN Reason: Protocol Review of Systems All systems: negative Exam - Constitutional Vitals: Temp Pulse Resp BP Pulse Ox 99.1 F 85 20 169/74 97 04/18/17 07:53 04/18/17 07:53 04/18/17 07:53 04/18/17 07:53 04/18/17 07:53 General appearance: Present: no acute distress - EENT Eyes: Present: PERRL, EOM intact ENT: hearing intact - Neck Neck: Present: supple, normal ROM - Respiratory Respiratory effort: normal - Extremities Extremities: abnormal - Abdominal General gastrointestinal: Present: deferred - Rectal Rectal Exam: deferred - Psychiatric Psychiatric: appropriate mood/affect, cooperative Results - Labs CBC & Chem 7: 04/18/17 04:42 04/18/17 04:42 Labs: Abnormal lab results 04/17/17 04/17/17 04/18/17 Range/Units 07:05 11:53 04:42 WBC 3.8 L (4.5-11.0) K/mm3 RBC 2.89 L (3.65-5.03) M/mm3 Hgb 9.2 L (10.1-14.3) gm/dl Hct 26.9 L (30.3-42.9) % RDW 20.4 H (13.2-15.2) % Eosinophils % (Manual) 7.0 H (0.0-4.3) % Lymphocytes # (Manual) 0.9 L (1.2-5.4) K/mm3 Sodium (137-145) mmol/L Chloride (98-107) mmol/L Carbon Dioxide (22-30) mmol/L BUN (7-17) mg/dL ALT (7-56) units/L Total Protein (6.3-8.2) g/dL Albumin (3.9-5) g/dL Urine Creatinine 50.9 H (0.1-20.0) mg/dL Urine Total Protein 12 H (5-11.8) mg/dL Crossmatch See Detail 04/18/17 Range/Units 04:42 WBC (4.5-11.0) K/mm3 RBC (3.65-5.03) M/mm3 Hgb (10.1-14.3) gm/dl Hct (30.3-42.9) % RDW (13.2-15.2) % Eosinophils % (Manual) (0.0-4.3) % Lymphocytes # (Manual) (1.2-5.4) K/mm3 Sodium 149 H (137-145) mmol/L Chloride 117.6 H (98-107) mmol/L Carbon Dioxide 15 L (22-30) mmol/L BUN 20 H (7-17) mg/dL ALT < 5 L (7-56) units/L Total Protein 5.1 L (6.3-8.2) g/dL Albumin 2.4 L (3.9-5) g/dL Urine Creatinine (0.1-20.0) mg/dL Urine Total Protein (5-11.8) mg/dL Crossmatch Assessment and Plan Patient will need a CTA of the abdomen and pelvis with focus on the right groin to determine if there is a subcutaneous fluid collection. She will need reevaluation by wound therapy and likely reapplication of the wound VAC.
[2017-04-18] MEDS: ZOSYN/NS 4.5GM/100ML 4.5 GM/100 ML VIAL IV SCH ×2 (14:00→23:11)
--- NOTE | 2017-04-18 18:23 | Cat Scan Report ---
FINAL REPORT EXAM: CT ANGIO ABDOMEN PELVIS HISTORY: right groin wound TECHNIQUE: CT abdomen and pelvis with intravenous contrast PRIORS: None. FINDINGS: No acute abnormality identified in the lung bases. No focal abnormality identified within the liver parenchyma. The spleen demonstrates normal size and attenuation. No pancreatic abnormalities seen. The kidneys demonstrate symmetric contrast enhancement. No evidence of hydronephrosis. The adrenal glands are unremarkable Abdominal aorta is normal in caliber. There is some calcified and noncalcified plaque present. SMA and celiac axis are patent. Both renal arteries are patent without significant stenosis identified. There is plaque and some narrowing at the origin of the common iliac arteries more prominent the right. The right external iliac is patent. The right common femoral is patent to the level of the bifurcation. There is flow seen into the deep femoral artery with lack of flow to the right superficial femoral artery. Partially seen is a stent within the proximal right CAMPAIGN CONSULTANT without evidence for vascular flow. There is a soft tissue defect of the right groin. Increased soft tissue density in the subcutaneous tissues of the right groin extending into the anterior aspect of the hip may reflect infection or non organized hematoma. Left external iliac is patent there is a stent present. There is flow seen to the left common femoral proximal SFA and deep femoral arteries. Demonstrated is central hypodensity within the uterus this is more prominent on prior exam. Please correlate with patient menstrual history. It and postmenopausal patient this could reflect hyperplasia or neoplasia and further follow-up is recommended. Note is made of a ventral periumbilical hernia with segment small bowel within the hernia sac no evidence for obstructive pattern or inflammatory change at the hernia sac. No pathologically enlarged lymph nodes are identified. No signs of free fluid or free air No evidence of small bowel dilatation. Colon is nondistended. No pericolonic inflammatory change. Urinary bladder is unremarkable. IMPRESSION: There is a lack flow with consistent with occlusion visualized proximal right superficial femoral artery and visualized portion of the SFA stent Soft tissue defect right groin adjacent strandy increased density and increased soft tissue density thigh in the area of the soft tissue defect could reflect cellulitis Increase of central hypodensity within the uterus. Could reflect neoplasia or hyperplasia please correlate with patient menstrual history additional follow-up pelvic ultrasound may be helpful for further characterization Periumbilical hernia with a short segment of small bowel at the hernia sac no evidence for obstructive pattern.
[2017-04-18] MEDS: MORPHINE IV PRN (18:47)
[2017-04-19] MEDS: DUONEB *Not for PRN Use IH SCH ×4 (01:54→20:30)
[2017-04-19] MEDS: HEPARIN SUB-Q SCH ×3 (06:30→22:36)
[2017-04-19] MEDS: NEURONTIN PO SCH ×3 (06:30→22:35)
[2017-04-19] MEDS: TYLENOL PO PRN (06:32)
[2017-04-19 06:41] LABS: Basophils % (Auto) 0.9 % (0.0-1.8); Eosinophils # (Auto) 0.1 K/mm3 (0.0-0.4); Eosinophils % (Auto) 2.9 % (0.0-4.3); Hematocrit 27.8 % (30.3-42.9); Hemoglobin 9.5 gm/dl (10.1-14.3); Lymphocytes # (Auto) 1.6 K/mm3 (1.2-5.4); Lymphocytes % (Auto) 38.3 % (13.4-35.0); Mean Corpuscular HGB Conc 34 % (30-34); Mean Corpuscular Hemoglobin 32 pg (28-32); Mean Corpuscular Volume 93 fl (79-97); Monocytes # (Auto) 0.4 K/mm3 (0.0-0.8); Monocytes % (Auto) 8.6 % (0.0-7.3); Platelet Count 359 K/mm3 (140-440); Red Blood Count 2.98 M/mm3 (3.65-5.03)
[2017-04-19 06:46] LABS: Albumin 2.5 g/dL (3.9-5); BUN/Creatinine Ratio 12; Blood Urea Nitrogen 11 mg/dL (7-17); Hemolysis Index 9
[2017-04-19 06:47] LABS: Alanine Aminotransferase < 5 units/L (7-56)
[2017-04-19 06:48] LABS: Red Cell Distribution Width 21.2 % (13.2-15.2)
[2017-04-19] MEDS: PULMICORT IH SCH ×2 (07:38→20:30)
[2017-04-19] MEDS: NOVOLOG SUB-Q SCH ×4 (07:51→22:40)
[2017-04-19] MEDS: ZOSYN/NS 4.5GM/100ML 4.5 GM/100 ML VIAL IV SCH ×3 (08:24→22:35)
--- NOTE | 2017-04-19 08:26 | Progress Note ---
Assessment and Plan 56-year-old female transferred from [facility] and h/o HIV with fever possible altered mental status patient is awake and alert and minimally verbal. Family states she is on antiretrovirals and her counts have been good. She does take L Song. Papers from [place] just state that she was a little bit confused with a fever status post her BKA that she is in rehabilitation for at their facility. BKA was at this facility in February. She has a history of CK D stage III with a history of arthritis ,asthma, CHF, COPD, DVT, dementia , diabetes ,headaches ,hypertension, PE, stents internal defibrillator. Patient arrives awake and alert stable airway blood pressure 103/45 temp 100.3 heart rate 120 room air sat 95. c/c complaitn was decreased responsiveness Assessment * Sepsis likely to 2 postsurgical infection * Status post right BKA * Cellulitis and stump infection * HIV with undetectable viral load and CD4 count of 277 as of 03/15/2017 * Acute kidney injury likely ATN * Anemia * Hypokalemia * hypernatremia - corrected * Acute kidney injury Plan Empiric antibiotics in the form of vancomycin and Zosyn pharmacy to dose the same blood cultures drawn will follow up results modify antibiotic treatment based culture and sensitivity data. IV fluid rehydration. Renally dose all medications Avoid nephrotoxins and NSAIDs. Monitor volume status ins and outs electrolytes Anemia studies as ordered follow-up results treated appropriately as indicated Replace electrolytes when necessary as per protocol DVT GI prophylaxis as ordered She did abdomen and pelvis ordered. Showed physical retention with mild intestinal distention ID following for Sepsis and HIV Subjective Date of service: 04/19/17 Principal diagnosis: Sepsis, HIV, MELQUIADES, infect right BKA Interval history: Lying quietly in bed, no new complaints. Still havign pain in the right leg, morphine, per patient's and therefore sedated. No fever or chills. Reviewed Laboratory and radiological data. Discussed with the patient's nurse. Objective - Exam Narrative Exam: Constitutional: Well-nourished well-developed. In no distress Head: Normocephalic atraumatic Eyes: Pupils are equal round and reactive to light Nose: No enlarged turbinates, no septal deviation. Mouth: Moist mucous membranes. Neck: Supple no thyromegaly. No bruit. No JVD Heart: Regular rate and rhythm, S1-S2 abnormal. No rubs murmurs or gallop Lungs: Clear to auscultation bilaterally no rales or rhonchi Abdomen: Soft, nontender. Bowel sound are present. Extremities: Right BKA No edema no cyanosis and no clubbing of left LE. Neuro: Sedated. No focal sensory or motor deficit. Skin: No rashes no hyperemic spots Psychiatry: Euthymic. Calm. - Constitutional Vitals: Vital Signs - 12hr 04/19/17 04/19/17 02:07 07:43 Temperature 98.6 F 98.7 F Pulse Rate 70 82 Respiratory 20 20 Rate Blood Pressure 150/70 Blood Pressure 156/68 [Left] O2 Sat by Pulse 98 98 Oximetry - Labs CBC & Chem 7: 04/19/17 05:46 04/19/17 05:46 Labs: Abnormal lab results 04/18/17 04/19/17 04/19/17 Range/Units 15:28 05:46 05:46 WBC 4.2 L (4.5-11.0) K/mm3 RBC 2.98 L (3.65-5.03) M/mm3 Hgb 9.5 L (10.1-14.3) gm/dl Hct 27.8 L (30.3-42.9) % RDW 21.2 H (13.2-15.2) % Lymph % (Auto) 38.3 H (13.4-35.0) % [place] % (Auto) 8.6 H (0.0-7.3) % Potassium 3.2 L (3.6-5.0) mmol/L Chloride 111.4 H (98-107) mmol/L Carbon Dioxide 18 L (22-30) mmol/L POC Glucose 119 H (70-105) Calcium 8.0 L (8.4-10.2) mg/dL ALT < 5 L (7-56) units/L Total Protein 4.9 L (6.3-8.2) g/dL Albumin 2.5 L (3.9-5) g/dL
[2017-04-19] MEDS: PLAVIX PO SCH (10:32)
[2017-04-19] MEDS: TRICOR PO SCH (10:32)
[2017-04-19] MEDS: PEPCID IV SCH (10:32)
[2017-04-19] MEDS: HALFPRIN EC PO SCH (10:32)
[2017-04-19] MEDS: MS CONTIN ER PO SCH ×2 (10:33→22:35)
[2017-04-19] MEDS: D5/0.45NS 1,000 ML IV SCH (11:08)
[2017-04-19] MEDS: VANCOMYCIN/0.45 NS 1 GM/250 ML 1 GM/250 ML BAG IV SCH (11:08)
--- NOTE | 2017-04-19 16:56 | Progress Note ---
Assessment and Plan CTA reviewed no fluid collection in the groin extending down to artery. Discussed with ET nurse. Will replace vac tomorrow to facilitate wound healing. - Patient Problems (1) Postoperative wound breakdown Current Visit: Yes Status: Acute Subjective Date of service: 04/19/17 Principal diagnosis: Sepsis, HIV, MELQUIADES, infect right BKA Interval history: Pt awake without complaint at present. Objective - Constitutional Vitals: Vital Signs - 12hr 04/19/17 04/19/17 07:43 15:54 Temperature 98.7 F 99.0 F Pulse Rate 82 79 Respiratory 20 19 Rate Blood Pressure 150/70 151/79 O2 Sat by Pulse 98 98 Oximetry General appearance: Present: no acute distress - EENT Eyes: EOM intact ENT: hearing intact - Respiratory Respiratory effort: normal Extremities: abnormal (BKA incision yuliya in place, mild erythema with serous drainage.(see pics)) Extremity abnormal: other (groin wound , red wound base small sinus tract at superior medial corner (see pics).) - Neurologic Neurologic: no focal deficits - Psychiatric Psychiatric: appropriate mood/affect, intact judgment & insight, cooperative - Additional findings Additional findings: - Labs CBC & Chem 7: 04/19/17 05:46 04/19/17 05:46 Labs: Abnormal lab results 04/19/17 04/19/17 Range/Units 05:46 05:46 WBC 4.2 L (4.5-11.0) K/mm3 RBC 2.98 L (3.65-5.03) M/mm3 Hgb 9.5 L (10.1-14.3) gm/dl Hct 27.8 L (30.3-42.9) % RDW 21.2 H (13.2-15.2) % Lymph % (Auto) 38.3 H (13.4-35.0) % [place] % (Auto) 8.6 H (0.0-7.3) % Potassium 3.2 L (3.6-5.0) mmol/L Chloride 111.4 H (98-107) mmol/L Carbon Dioxide 18 L (22-30) mmol/L Calcium 8.0 L (8.4-10.2) mg/dL ALT < 5 L (7-56) units/L Total Protein 4.9 L (6.3-8.2) g/dL Albumin 2.5 L (3.9-5) g/dL
--- NOTE | 2017-04-19 17:06 | Progress Note ---
Assessment and Plan - Patient Problems (1) Acute kidney injury Current Visit: Yes Status: Acute Plan to address problem: suspect acute kidney injury most likely due to pre-renal azotemia in the setting of post-op infection/sepsis, improving on IVF/ABXs improving on IVF. cont supportive care for MELQUIADES avoid further nephrotoxins, NSAIDs, IV contrast (2) Metabolic acidosis Current Visit: Yes Status: Acute Plan to address problem: non AG, hyperchloremic met acidosis, cont D5 1/2NS, if serum bicarb remains low despite corrected hyperchloremia will start oral Na bicarb (3) Hyperkalemia Current Visit: Yes Status: Acute Plan to address problem: resolved (4) Hypertensive chronic kidney disease with stage 1 through stage 4 chronic kidney disease, or unspecified chronic kidney disease Current Visit: Yes Status: Acute Plan to address problem: monitor BP on current meds (5) HIV (human immunodeficiency virus infection) Current Visit: Yes Status: Acute Plan to address problem: cont ART (6) Post op infection Current Visit: Yes Status: Acute Plan to address problem: follow vascular surgery recommendations (7) Chronic kidney disease (CKD), stage III (moderate) Onset Date: Unknown Current Visit: No Status: Chronic Plan to address problem: supportive care for CKD Subjective Date of service: 04/19/17 Principal diagnosis: Sepsis, HIV, MELQUIADES, infect right BKA Interval history: Pt awake, alert, in no acute respiratory distress Objective - Vital Signs Vital signs: Vital Signs - 12hr 04/19/17 04/19/17 07:43 15:54 Temperature 98.7 F 99.0 F Pulse Rate 82 79 Respiratory 20 19 Rate Blood Pressure 150/70 151/79 O2 Sat by Pulse 98 98 Oximetry - General Appearance General appearance: well-developed, well-nourished, appears stated age EENT: ATNC, PERRL, mucous membranes moist Neck: no JVD Respiratory: Present: Clear to Ascultation Cardiology: regular, S1S2 Gastrointestinal: normoactive bowel sounds Integumentary: no rash, other (s/p R BKA ) Neurologic: no focal deficit, alert and oriented x3, strength 5/5, CN 3-12 intact Psychiatric: mood/affect appropriate, cooperative - Lab 04/19/17 05:46 04/19/17 05:46 Most recent lab results Calcium 8.0 mg/dL (8.4-10.2) L 04/19/17 05:46 Phosphorus 5.70 mg/dL (2.5-4.5) H 04/16/17 02:57 Magnesium 1.50 mg/dL (1.7-2.3) L 04/16/17 02:57 Urine Creatinine 50.9 mg/dL (0.1-20.0) H 04/17/17 11:53 Urine Sodium 114 mmol/L 04/17/17 11:53 Urine Total Protein 12 mg/dL (5-11.8) H 04/17/17 11:53
[2017-04-19] MEDS: PEPCID PO SCH (22:35)
[2017-04-20] MEDS: VANCOMYCIN/0.45 NS 1 GM/250 ML 1 GM/250 ML BAG IV SCH ×2 (01:37→16:19)
[2017-04-20] MEDS: D5/0.45NS 1,000 ML IV SCH (01:37)
[2017-04-20 06:48] LABS: Basophils % (Auto) 0.7 % (0.0-1.8); Eosinophils # (Auto) 0.1 K/mm3 (0.0-0.4); Eosinophils % (Auto) 2.8 % (0.0-4.3); Hematocrit 28.8 % (30.3-42.9); Hemoglobin 9.8 gm/dl (10.1-14.3); Lymphocytes # (Auto) 1.7 K/mm3 (1.2-5.4); Lymphocytes % (Auto) 34.2 % (13.4-35.0); Mean Corpuscular HGB Conc 34 % (30-34); Mean Corpuscular Hemoglobin 31 pg (28-32); Mean Corpuscular Volume 93 fl (79-97); Monocytes # (Auto) 0.4 K/mm3 (0.0-0.8); Monocytes % (Auto) 7.6 % (0.0-7.3); Platelet Count 379 K/mm3 (140-440); Red Blood Count 3.12 M/mm3 (3.65-5.03); Red Cell Distribution Width 21.1 % (13.2-15.2)
[2017-04-20] MEDS: ZOSYN/NS 4.5GM/100ML 4.5 GM/100 ML VIAL IV SCH ×2 (06:58→15:19)
[2017-04-20] MEDS: HEPARIN SUB-Q SCH ×2 (06:58→15:19)
[2017-04-20] MEDS: NEURONTIN PO SCH ×2 (06:58→15:19)
[2017-04-20 07:16] LABS: Albumin 2.7 g/dL (3.9-5); BUN/Creatinine Ratio 9; Blood Urea Nitrogen 7 mg/dL (7-17); Hemolysis Index 17
[2017-04-20 07:19] LABS: Alanine Aminotransferase < 5 units/L (7-56)
[2017-04-20] MEDS: PULMICORT IH SCH (07:36)
[2017-04-20] MEDS: NOVOLOG SUB-Q SCH ×2 (07:45→15:20)
[2017-04-20] MEDS: MORPHINE IV PRN (10:06)
[2017-04-20] MEDS: TRICOR PO SCH (10:10)
[2017-04-20] MEDS: PLAVIX PO SCH (10:11)
[2017-04-20] MEDS: HALFPRIN EC PO SCH (10:11)
[2017-04-20] MEDS: PEPCID PO SCH (10:11)
--- NOTE | 2017-04-20 10:28 | Progress Note ---
Assessment and Plan Patient awaiting wound VAC placement. She will be transferred to LTAC later on today. Subjective Date of service: 04/20/17 Principal diagnosis: Sepsis, HIV, MELQUIADES, infect right BKA Interval history: Patient with history of right groin infection, right BKA and gangrenous changes to her left toes. She is awaiting wound VAC placement. Objective - Constitutional Vitals: Vital Signs - 12hr 04/19/17 04/20/17 04/20/17 22:29 00:38 01:48 Temperature 99.2 F 98.9 F Pulse Rate 74 82 Respiratory 18 18 Rate Blood Pressure 156/72 Blood Pressure 161/75 [Left] O2 Sat by Pulse 98 98 98 Oximetry 04/20/17 04/20/17 04:21 07:47 Temperature 99.1 F 99.9 F H Pulse Rate 85 86 Respiratory 18 18 Rate Blood Pressure 138/70 161/79 Blood Pressure [Left] O2 Sat by Pulse 96 95 Oximetry General appearance: Present: no acute distress - EENT Eyes: PERRL ENT: hearing intact - Neck Neck: supple, normal ROM - Respiratory Respiratory effort: normal Extremities: abnormal - Gastrointestinal General gastrointestinal: Present: deferred - Genitourinary Female genitourinary: deferred - Psychiatric Psychiatric: appropriate mood/affect, cooperative - Labs CBC & Chem 7: 04/20/17 06:00 04/20/17 06:00 Labs: Abnormal lab results 04/16/17 04/19/17 04/20/17 Range/Units 02:57 22:42 06:00 RBC 3.12 L (3.65-5.03) M/mm3 Hgb 9.8 L (10.1-14.3) gm/dl Hct 28.8 L (30.3-42.9) % RDW 21.1 H (13.2-15.2) % [place] % (Auto) 7.6 H (0.0-7.3) % Potassium (3.6-5.0) mmol/L Carbon Dioxide (22-30) mmol/L POC Glucose 117 H (70-105) Calcium (8.4-10.2) mg/dL ALT (7-56) units/L Total Protein (6.3-8.2) g/dL Albumin (3.9-5) g/dL 25-OH Vitamin D Total 8 L (30-100) ng/mL 04/20/17 Range/Units 06:00 RBC (3.65-5.03) M/mm3 Hgb (10.1-14.3) gm/dl Hct (30.3-42.9) % RDW (13.2-15.2) % [place] % (Auto) (0.0-7.3) % Potassium 3.0 L (3.6-5.0) mmol/L Carbon Dioxide 20 L (22-30) mmol/L POC Glucose (70-105) Calcium 8.0 L (8.4-10.2) mg/dL ALT < 5 L (7-56) units/L Total Protein 5.1 L (6.3-8.2) g/dL Albumin 2.7 L (3.9-5) g/dL 25-OH Vitamin D Total (30-100) ng/mL
[2017-04-20] MEDS: MS CONTIN ER PO SCH (14:50)
[2017-04-20 15:22] VITALS: BP 167/80
--- NOTE | 2017-04-20 15:57 | Progress Note ---
Assessment and Plan - Patient Problems (1) Acute kidney injury Current Visit: Yes Status: Acute Plan to address problem: suspect acute kidney injury most likely due to pre-renal azotemia in the setting of post-op infection/sepsis, improving on IVF/ABXs improving on IVF. cont supportive care for MELQUIADES avoid further nephrotoxins, NSAIDs, IV contrast (2) Metabolic acidosis Current Visit: Yes Status: Acute Plan to address problem: non AG, hyperchloremic met acidosis, cont D5 1/2NS, if serum bicarb remains low despite corrected hyperchloremia will start oral Na bicarb (3) Hyperkalemia Current Visit: Yes Status: Acute Plan to address problem: resolved (4) Hypertensive chronic kidney disease with stage 1 through stage 4 chronic kidney disease, or unspecified chronic kidney disease Current Visit: Yes Status: Acute Plan to address problem: monitor BP on current meds (5) HIV (human immunodeficiency virus infection) Current Visit: Yes Status: Acute Plan to address problem: cont ART (6) Post op infection Current Visit: Yes Status: Acute Plan to address problem: follow vascular surgery recommendations (7) Chronic kidney disease (CKD), stage III (moderate) Onset Date: Unknown Current Visit: No Status: Chronic Plan to address problem: supportive care for CKD Subjective Date of service: 04/20/17 Principal diagnosis: Sepsis, HIV, MELQUIADES, infect right BKA Interval history: Pt awake, alert, in no acute respiratory distress Objective - Vital Signs Vital signs: Vital Signs - 12hr 04/20/17 04/20/17 04/20/17 04:21 07:47 11:25 Temperature 99.1 F 99.9 F H 98.8 F Pulse Rate 85 86 98 H Respiratory 18 18 18 Rate Blood Pressure 138/70 161/79 132/63 O2 Sat by Pulse 96 95 99 Oximetry 04/20/17 15:18 Temperature 99.6 F Pulse Rate 89 Respiratory 20 Rate Blood Pressure 167/80 O2 Sat by Pulse 97 Oximetry - General Appearance General appearance: well-developed, well-nourished, appears stated age EENT: ATNC, PERRL, mucous membranes moist Neck: no JVD Respiratory: Present: Clear to Ascultation Cardiology: regular, S1S2 Gastrointestinal: normoactive bowel sounds Integumentary: no rash, other (no edema ) Neurologic: no focal deficit, alert and oriented x3, strength 5/5, CN 3-12 intact Psychiatric: mood/affect appropriate, cooperative - Lab 04/20/17 06:00 04/20/17 06:00 Most recent lab results Calcium 8.0 mg/dL (8.4-10.2) L 04/20/17 06:00 Phosphorus 5.70 mg/dL (2.5-4.5) H 04/16/17 02:57 Magnesium 1.50 mg/dL (1.7-2.3) L 04/16/17 02:57 Urine Creatinine 50.9 mg/dL (0.1-20.0) H 04/17/17 11:53 Urine Sodium 114 mmol/L 04/17/17 11:53 Urine Total Protein 12 mg/dL (5-11.8) H 04/17/17 11:53
--- NOTE | 2017-04-20 16:37 | Discharge Summary ---
Providers - Providers Date of Admission: 04/16/17 01:45 Attending physician: ARIC ADAMS MD 04/16/17 08:56 Consult to Physician [CONS] Routine Consulting Provider: GARY MERRILL Reason For Exam: MELQUIADES Place consult to:: Melina Notified:: PLEASE CALL MD IN AM Was contact made?: No Comment:: said to place patient on list 04/17/17 08:51 Consult to Wound/ET Nurse [CONS] Urgent Reason For Exam: wound eval 04/18/17 09:35 Consult to Physician [CONS] Routine Consulting Provider: YUMIKO MCKEON Reason For Exam: STUMP INFECTION Place consult to:: DR. RAMIREZ Notified:: DR. RAMIREZ Phone number called:: IN HOUSE Was contact made?: Yes If yes, spoke with:: DR. RAMIREZ Time called:: 10:00 Primary care physician: MECHANICAL PROCESS ENGINEER Hospitalization Condition: Serious Hospital course: 56-year-old female transferred from [facility] and h/o HIV with fever possible altered mental status patient is awake and alert and minimally verbal. Family states she is on antiretrovirals and her counts have been good. She does take L Song. Papers from [place] just state that she was a little bit confused with a fever status post her BKA that she is in rehabilitation for at their facility. BKA was at this facility in February. She has a history of CK D stage III with a history of arthritis ,asthma, CHF, COPD, DVT, dementia , diabetes ,headaches ,hypertension, PE, stents internal defibrillator. Patient arrives awake and alert stable airway blood pressure 103/45 temp 100.3 heart rate 120 room air sat 95. c/c complaitn was decreased responsiveness Assessment * Sepsis likely to 2 postsurgical infection * Status post right BKA * Cellulitis and stump infection * HIV with undetectable viral load and CD4 count of 277 as of 03/15/2017 * Acute kidney injury likely ATN * Anemia * Hypokalemia * hypernatremia - corrected * Acute kidney injury Plan Empiric antibiotics in the form of vancomycin and Zosyn pharmacy to dose the same blood cultures drawn will follow up results modify antibiotic treatment based culture and sensitivity data. IV fluid rehydration. Renally dose all medications Avoid nephrotoxins and NSAIDs. Monitor volume status ins and outs electrolytes Anemia studies as ordered follow-up results treated appropriately as indicated Replace electrolytes when necessary as per protocol DVT GI prophylaxis as ordered She did abdomen and pelvis ordered. Showed physical retention with mild intestinal distention ID following for Sepsis and HIV Disposition: [id number]/TX-[id number] MEDICARE CERT LTCH Time spent for discharge: 33 minutes Exam - Constitutional Vitals: Temp Pulse Resp BP Pulse Ox 99.6 F 89 20 167/80 97 04/20/17 15:18 04/20/17 15:18 04/20/17 15:18 04/20/17 15:18 04/20/17 15:18 Plan Follow up with: PRIMARY MD TOMMIE [Primary Care Provider] - 3-5 Days
== END 2017-04-20 19:48 | DRG 564 ==
LOC: ED 17:47 → 3A 04-16 01:45
PROVIDERS: ADMIT Internal Medicine Geriatric Medicine; ATTEND Internal Medicine
PROC: 4A033R1 Measurement of Arterial Saturation, Peripheral, Percutaneous Approach (ICD-10-PCS; principal; 2017-04-16)
PROC: 30233N1 Transfusion of Nonautologous Red Blood Cells into Peripheral Vein, Percutaneous Approach (ICD-10-PCS; 2017-04-17)
DX: T87.43 Infection of amputation stump, right lower extremity (principal); A41.9 Sepsis, unspecified organism; N17.0 Acute kidney failure with tubular necrosis; B20 Human immunodeficiency virus [HIV] disease; I13.0 Hypertensive heart and chronic kidney disease with heart failure and stage 1 through stage 4 chronic kidney disease, or unspecified chronic kidney disease; E87.2 Acidosis; L03.115 Cellulitis of right lower limb; E87.0 Hyperosmolality and hypernatremia; E87.5 Hyperkalemia; N18.3 Chronic kidney disease, stage 3 (moderate); M19.90 Unspecified osteoarthritis, unspecified site; I50.9 Heart failure, unspecified; J44.9 Chronic obstructive pulmonary disease, unspecified; F03.90 Unspecified dementia, unspecified severity, without behavioral disturbance, psychotic disturbance, mood disturbance, and anxiety; D64.9 Anemia, unspecified; J45.909 Unspecified asthma, uncomplicated; E11.9 Type 2 diabetes mellitus without complications; Z86.718 Personal history of other venous thrombosis and embolism; Z79.01 Long term (current) use of anticoagulants; Z86.711 Personal history of pulmonary embolism; Z82.49 Family history of ischemic heart disease and other diseases of the circulatory system; Z79.899 Other long term (current) drug therapy; Z79.1 Long term (current) use of non-steroidal anti-inflammatories (NSAID); Z79.2 Long term (current) use of antibiotics; Z79.51 Long term (current) use of inhaled steroids
CPT/HCPCS: 36415; 36600; 70450; 71045; 72170; 74174; 74176; 80048; 80053; 80061; 80202; 80307; 80320; 81001; 82140; 82306; 82550; 82553; 82570; 82607; 82728; 82747; 82803; 82962; 83036; 83550; 83735; 84100; 84132; 84156; 84300; 84443; 84484; 85007; 85025; 85027; 85610; 86850; 86900; 86901; 86920; 87040; 87086; 93005; 93010; 96361; 96365; 96366; 96367; 96375; 99406; G0480; J1170; J1644; J1815; J2270; J2543; J3370; J7030; J7040; J7042; P9016; Q9967

== ENCOUNTER 2017-05-12 09:37 | Outpatient (CLI) | payer MEDICARE ==
[2017-05-12] MEDS ORDERED: XYLOCAINE TOPICAL 4% TP ONE (10:33)
== END 2017-05-12 09:38 | disposition home or self-care (01) ==
LOC: WOUND 09:37
PROVIDERS: ATTEND Nurse Practitioner
DX: T87.89 Other complications of amputation stump (principal); T81.31XD Disruption of external operation (surgical) wound, not elsewhere classified, subsequent encounter; I70.211 Atherosclerosis of native arteries of extremities with intermittent claudication, right leg; I73.9 Peripheral vascular disease, unspecified; J45.909 Unspecified asthma, uncomplicated; I10 Essential (primary) hypertension; Z87.891 Personal history of nicotine dependence; Y83.5 Amputation of limb(s) as the cause of abnormal reaction of the patient, or of later complication, without mention of misadventure at the time of the procedure; Y83.8 Other surgical procedures as the cause of abnormal reaction of the patient, or of later complication, without mention of misadventure at the time of the procedure

== ENCOUNTER 2017-05-19 10:26 | Outpatient (CLI) | payer MEDICARE ==
[2017-05-19] MEDS ORDERED: XYLOCAINE TOPICAL 4% TP ONE (10:53)
[2017-05-19] MEDS ORDERED: SILVER NITRATE TP ONE ×2 (11:01→11:06)
== END 2017-05-19 10:27 | disposition home or self-care (01) ==
LOC: WOUND 10:26
PROVIDERS: ATTEND Nurse Practitioner
DX: T81.31XD Disruption of external operation (surgical) wound, not elsewhere classified, subsequent encounter (principal); I70.211 Atherosclerosis of native arteries of extremities with intermittent claudication, right leg; J45.909 Unspecified asthma, uncomplicated; I73.9 Peripheral vascular disease, unspecified; I10 Essential (primary) hypertension; Z89.511 Acquired absence of right leg below knee; Z87.891 Personal history of nicotine dependence; Y83.8 Other surgical procedures as the cause of abnormal reaction of the patient, or of later complication, without mention of misadventure at the time of the procedure
CPT/HCPCS: 17250

== ENCOUNTER 2017-05-26 10:33 | Outpatient (CLI) | payer MEDICARE ==
[2017-05-26] MEDS ORDERED: XYLOCAINE TOPICAL 4% TP ONE (12:00)
== END 2017-05-26 10:34 | disposition home or self-care (01) ==
LOC: WOUND 10:33
PROVIDERS: ATTEND Nurse Practitioner
DX: T87.89 Other complications of amputation stump (principal); T81.31XD Disruption of external operation (surgical) wound, not elsewhere classified, subsequent encounter; I70.211 Atherosclerosis of native arteries of extremities with intermittent claudication, right leg; I73.9 Peripheral vascular disease, unspecified; I10 Essential (primary) hypertension; J45.909 Unspecified asthma, uncomplicated; Z87.891 Personal history of nicotine dependence; Y83.8 Other surgical procedures as the cause of abnormal reaction of the patient, or of later complication, without mention of misadventure at the time of the procedure; Y83.5 Amputation of limb(s) as the cause of abnormal reaction of the patient, or of later complication, without mention of misadventure at the time of the procedure
CPT/HCPCS: 97597

== ENCOUNTER 2017-06-09 09:59 | Outpatient (CLI) | payer MEDICARE ==
[2017-06-09] MEDS ORDERED: XYLOCAINE TOPICAL 4% TP ONE (10:43)
== END 2017-06-09 10:00 | disposition home or self-care (01) ==
LOC: WOUND 09:59
PROVIDERS: ATTEND Nurse Practitioner
DX: T87.89 Other complications of amputation stump (principal); T81.31XD Disruption of external operation (surgical) wound, not elsewhere classified, subsequent encounter; I70.211 Atherosclerosis of native arteries of extremities with intermittent claudication, right leg; I10 Essential (primary) hypertension; J45.909 Unspecified asthma, uncomplicated; B20 Human immunodeficiency virus [HIV] disease; Z89.511 Acquired absence of right leg below knee; Y83.5 Amputation of limb(s) as the cause of abnormal reaction of the patient, or of later complication, without mention of misadventure at the time of the procedure; Y83.8 Other surgical procedures as the cause of abnormal reaction of the patient, or of later complication, without mention of misadventure at the time of the procedure

== ENCOUNTER 2017-06-16 10:31 | Outpatient (CLI) | payer MEDICARE ==
[2017-06-16] MEDS ORDERED: XYLOCAINE TOPICAL 2% 5ML ONE (11:02)
[2017-06-17] MEDS ORDERED: XYLOCAINE TOPICAL 2% 5ML TP ONE (09:02)
== END 2017-06-16 10:32 | disposition home or self-care (01) ==
LOC: WOUND 10:31
PROVIDERS: ATTEND Nurse Practitioner
DX: T87.89 Other complications of amputation stump (principal); T81.31XD Disruption of external operation (surgical) wound, not elsewhere classified, subsequent encounter; I70.211 Atherosclerosis of native arteries of extremities with intermittent claudication, right leg; J45.909 Unspecified asthma, uncomplicated; I73.9 Peripheral vascular disease, unspecified; B20 Human immunodeficiency virus [HIV] disease; I10 Essential (primary) hypertension; Z87.891 Personal history of nicotine dependence; Z89.511 Acquired absence of right leg below knee; Y83.5 Amputation of limb(s) as the cause of abnormal reaction of the patient, or of later complication, without mention of misadventure at the time of the procedure; Y83.8 Other surgical procedures as the cause of abnormal reaction of the patient, or of later complication, without mention of misadventure at the time of the procedure
CPT/HCPCS: 99215; G0463

== ENCOUNTER 2017-06-23 10:12 | Outpatient (CLI) | payer MEDICARE ==
[2017-06-23] MEDS ORDERED: XYLOCAINE TOPICAL 2% 5ML ONE (10:24)
[2017-06-23] MEDS ORDERED: XYLOCAINE TOPICAL 2% 5ML TP ONE (12:00)
== END 2017-06-23 10:13 | disposition home or self-care (01) ==
LOC: WOUND 10:12
PROVIDERS: ATTEND Nurse Practitioner
DX: T87.89 Other complications of amputation stump (principal); T81.31XD Disruption of external operation (surgical) wound, not elsewhere classified, subsequent encounter; I70.211 Atherosclerosis of native arteries of extremities with intermittent claudication, right leg; B20 Human immunodeficiency virus [HIV] disease; I73.9 Peripheral vascular disease, unspecified; J45.909 Unspecified asthma, uncomplicated; I10 Essential (primary) hypertension; Z87.891 Personal history of nicotine dependence; Y83.5 Amputation of limb(s) as the cause of abnormal reaction of the patient, or of later complication, without mention of misadventure at the time of the procedure; Y83.8 Other surgical procedures as the cause of abnormal reaction of the patient, or of later complication, without mention of misadventure at the time of the procedure

== ENCOUNTER 2017-06-30 10:34 | Outpatient (CLI) | payer MEDICARE ==
[2017-06-30] MEDS ORDERED: XYLOCAINE TOPICAL 4% TP ONE (10:54)
== END 2017-06-30 10:35 | disposition home or self-care (01) ==
LOC: WOUND 10:34
PROVIDERS: ATTEND Nurse Practitioner
DX: T87.81 Dehiscence of amputation stump (principal); I70.211 Atherosclerosis of native arteries of extremities with intermittent claudication, right leg; B20 Human immunodeficiency virus [HIV] disease; J45.909 Unspecified asthma, uncomplicated; I10 Essential (primary) hypertension; Z87.891 Personal history of nicotine dependence; Y83.5 Amputation of limb(s) as the cause of abnormal reaction of the patient, or of later complication, without mention of misadventure at the time of the procedure

== ENCOUNTER 2017-07-14 12:41 | Outpatient (CLI) | payer MEDICARE ==
[2017-07-14] MEDS ORDERED: XYLOCAINE TOPICAL 4% TP ONE ×2 (13:33→13:34)
== END 2017-07-14 12:42 | disposition home or self-care (01) ==
LOC: WOUND 12:41
PROVIDERS: ATTEND Nurse Practitioner
DX: T87.81 Dehiscence of amputation stump (principal); I70.211 Atherosclerosis of native arteries of extremities with intermittent claudication, right leg; B20 Human immunodeficiency virus [HIV] disease; J45.909 Unspecified asthma, uncomplicated; I10 Essential (primary) hypertension; Z87.891 Personal history of nicotine dependence; Y83.5 Amputation of limb(s) as the cause of abnormal reaction of the patient, or of later complication, without mention of misadventure at the time of the procedure

== ENCOUNTER 2017-10-04 05:52 | Day surgery (SDC) | payer MEDICARE ==
[2017-10-04] MEDS ORDERED: ANCEF/STERILE WATER 2 GM/20 ML 2 GM/20 ML SYRINGE IV NR (06:00)
[2017-10-04] MEDS ORDERED: NACL 0.9% 1000 ML 1,000 ML IV SCH ×2 (06:00)
[2017-10-04] MEDS ORDERED: VERSED IV NR (06:00)
[2017-10-04] MEDS ORDERED: NACL BACTERIOSTATIC INFILTRATI ONE (06:19)
[2017-10-04] MEDS ORDERED: XYLOCAINE MPF 2% ONE (07:05)
[2017-10-04] MEDS ORDERED: DIPRIVAN 10 MG/ML IV ONE (07:05)
[2017-10-04 07:07] LABS: Basophils # (Auto) 0.1 K/mm3 (0.0-0.1); Basophils % (Auto) 1.3 % (0.0-1.8); Eosinophils # (Auto) 0.2 K/mm3 (0.0-0.4); Eosinophils % (Auto) 2.6 % (0.0-4.3); Hemoglobin 13.2 gm/dl (10.1-14.3); Lymphocytes # (Auto) 2.8 K/mm3 (1.2-5.4); Lymphocytes % (Auto) 38.5 % (13.4-35.0); Mean Corpuscular HGB Conc 34 % (30-34); Mean Corpuscular Hemoglobin 34 pg (28-32); Mean Corpuscular Volume 100 fl (79-97); Monocytes # (Auto) 0.3 K/mm3 (0.0-0.8); Monocytes % (Auto) 4.2 % (0.0-7.3); Platelet Count 317 K/mm3 (140-440); Red Blood Count 3.88 M/mm3 (3.65-5.03); Red Cell Distribution Width 16.4 % (13.2-15.2)
[2017-10-04 07:32] LABS: Calcium 9.3 mg/dL (8.4-10.2)
[2017-10-04] MEDS ORDERED: PROVENTIL IH NR (07:45)
[2017-10-04] MEDS ORDERED: DECADRON ONE (08:25)
[2017-10-04] MEDS ORDERED: ZOFRAN ONE (08:25)
[2017-10-04] MEDS ORDERED: DILAUDID ONE ×3 (08:27→09:31)
[2017-10-04] MEDS ORDERED: NACL 0.9% IR ONE (08:37)
[2017-10-04] MEDS ORDERED: XYLOCAINE 1% 20 mL INFILTRATI ONE (08:37)
[2017-10-04] MEDS ORDERED: XYLOCAINE 1% 20 mL ONE (08:43)
[2017-10-04] MEDS: DILAUDID IV PRN ×2 (09:27→09:35)
[2017-10-04] MEDS ORDERED: ZOFRAN IV PRN (09:31)
[2017-10-04] MEDS ORDERED: DEMEROL IV PRN (09:31)
--- NOTE | 2017-10-04 09:44 | Short Stay Summary ---
Short Stay Documentation Date of service: 10/04/17 Narrative H&P: See H&P - History H&P: obtained from office - Allergies and Medications Current Medications: Allergies No Known Allergies Allergy (Verified 10/03/17 13:13) Home Medications Medication Instructions Recorded Confirmed Last Taken Type Albuterol Sulfate [Ventolin Hfa] 18 gm IH Q4H PRN 03/06/17 10/03/17 03/25/17 History Darunavir/Cobicistat [Prezcobix 1 each PO DAILY 03/06/17 10/03/17 10/03/17 History 800 mg-150 mg Tablet] Dolutegravir Sodium [Tivicay] 50 mg PO DAILY 03/06/17 10/03/17 10/03/17 History Fenofibrate Nanocrystallized 145 mg PO DAILY 03/06/17 10/03/17 10/03/17 History [Fenofibrate] Fluticasone (Nf) [Flovent 220 1 puff INHALATION DAILY 03/06/17 10/03/17 History MCG/PUFF HFA] Lisinopril [Zestril TAB] 20 mg PO QDAY 03/06/17 10/04/17 10/04/17 03:00 History lamiVUDine/ZIDOVUDINE (NF) 1 each PO BID 03/06/17 10/03/17 10/03/17 History [COMBIVIR 150-300 mg (NF)] Apixaban [Eliquis] 5 mg PO BID #60 tablet 03/09/17 10/03/17 10/03/17 Rx Gabapentin [Neurontin] 300 mg PO Q8HR #90 capsule 03/09/17 10/03/17 10/03/17 Rx Bisacodyl [Dulcolax suppos] 10 mg IA QDAY PRN supp.rect 04/04/17 10/03/1710/03 Rx Budesonide [Pulmicort Respules] 0.5 mg IH Q12HRT nebu 04/20/17 10/03/17 Rx ALBUTEROL NEB's [Proventil 0.083% 2.5 mg IH Q4H PRN 10/03/17 10/04/17 09/06/17 History NEBS] Active Medications Sodium Chloride (Nacl 0.9% 1000 Ml) 1,000 mls @ 75 mls/hr IV DIRECT LANETTE Last Admin: 10/04/17 06:50 Dose: 75 mls/hr Cefazolin Sodium (Ancef/Sterile Water 2 Gm/20 Ml) 2 gm in 20 mls @ 80 mls/hr IV PREOP NR; Protocol Stop: 10/04/17 23:59 Sodium Chloride (Nacl 0.9% 1000 Ml) 1,000 mls @ 42 mls/hr IV DIRECT LANETTE Midazolam HCl (Versed) 2 mg IV PREOP NR Stop: 10/04/17 23:59 - Brief post op/procedure progress note Date of procedure: 10/04/17 Pre-op diagnosis: Right Below-Knee Amputation Pain Prosthesis Post-op diagnosis: same Procedure: Revision of Right Below-Knee Amputation Anesthesia: GETA Surgeon: FORTINO SALMERON Estimated blood loss: minimal Pathology: list (portion of right tibia sent to pathology) Specimen disposition: to lab Condition: stable - Disposition Condition at discharge: Good Disposition: DC-01 TO HOME OR SELFCARE Short Stay Discharge Plan Activity: other (do not wear prosthesis until after follow-up in office) Wound: open to air, keep clean and dry, other (okay to wash the wound with soap and water but do not soak in water) Follow up with: FORTINO SALMERON MD [Staff Physician] - 14 Days
--- NOTE | 2017-10-04 09:54 | Operative Report ---
Operative Report Operative Report: Date of Procedure: 10/04/2017 Pre-operative Diagnosis: Pain in Right Below-Knee Amputation with Prosthesis Post-operative Diagnosis: Same Procedure(s): 1. Revision of Right Below-Knee Amputation Surgeon: Luis Durant M.D. Stockroom Helper: Alie Anesthesia: Gen. Endotracheal Anesthesia EBL: Minimal Counts: Correct Complications: None Condition: Stable Findings: The patient's tibia was fairly prominent and rubbing against her prosthesis. This was likely the cause of her pain. After shaving the tibia down it was flat and will likely resolve or issue. Specimen: Portion of right tibia since pathology. Indication: The patient is a 57-year-old female with a history of peripheral vascular disease who underwent a right below-knee amputation and has been ambulating with a prosthesis. She complains of significant pain in the right leg with ambulation and points to the area of her tibia where the pain is caused with wearing the prosthesis. It is likely that the pain is caused by the prosthesis rubbing on her tibia. I have offered the patient revision of her amputation. She was given the risk, benefits, and alternative procedures and consented to the procedure. Description of Procedure: The patient was brought into the operating room and laid in supine position. After general endotracheal anesthesia was achieved her right leg was prepped and draped in normal sterile fashion. A longitudinal incision was created and centered over the tibia. Cautery was used to take the incision down to the tibia and then the periosteum was incised. The periosteum was incised longitudinally and then pushed off of the bone but remained intact. Once the bone was cleared the oscillating saw was used to shave the bone down at approximately a 45 angle and then the rasp was used to smooth all edges. Cautery was used to achieve hemostasis on the marrow and then the wound was then copiously irrigated. Once hemostasis within the wound was completely achieved the periosteum was reclosed over the bone using 3-0 Vicryl in interrupted fashion. The wound was then closed using 3-0 Vicryl running fashion and the deep dermal layer and 4-0 Monocryl in running fashion the subcuticular and then dressed with Dermabond. The patient tolerated the procedure well. All sponge, needle, and instrument counts were correct. The patient was taken to the recovery area in stable condition.
[2017-10-04] MEDS ORDERED: NORCO 7.5/325 PO PRN (10:09)
[2017-10-04 10:41] VITALS: BP 139/73
--- NOTE | 2017-10-04 12:15 | Anesthesia Consultation ---
Anesthesia Consult and Med Hx Date of service: 10/04/17 - Airway Anesthetic Teeth Evaluation: Good (some missing) ROM Head & Neck: Adequate Mental/Hyoid Distance: Adequate Mallampati Class: Class II Intubation Access Assessment: Probably Good - Cardiac Exam Cardiac Exam: No Murmur - Pre-Operative Health Status ASA Pre-Surgery Classification: ASA3 Proposed Anesthetic Plan: General - Pulmonary Hx Smoking: Yes Hx Asthma: Yes - Cardiovascular System Hx Hypertension: Yes Hx Peripheral Vascular Disease: Yes (s/p thrombectomy, angioplasty) - Central Nervous System Hx Psychiatric Problems: Yes - Endocrine Hx Renal Disease: Yes (stage 3. NOT ON DIALYSIS) Hx Liver Disease: Yes - Hematic Hx Anemia: Yes - Other Systems Hx Cancer: No
--- NOTE | 2017-10-04 12:16 | Anesthesia Day of Surgery ---
Anesthesia Day of Surgery - Day of Surgery Patient Examined: Yes Patient H&P Reviewed: Yes Patient is NPO: Yes Beta Blockers: No
--- NOTE | 2017-10-04 12:18 | Post Anesthesia Evaluation ---
- Post Anesthesia Evaluation Patient Participated: Yes Airway Patent: Yes Stable Respiratory Function: Yes Nausea/Vomiting: Yes Temp > 96.8F: Yes Pain Manageable: Yes Adequeate Hydration: Yes Anesthesia Complications: No
== END 2017-10-04 11:06 | disposition home or self-care (01) ==
LOC: OR 05:52
PROVIDERS: ATTEND Surgery Vascular Surgery
DX: T84.84XA Pain due to internal orthopedic prosthetic devices, implants and grafts, initial encounter (principal); M25.561 Pain in right knee; I73.9 Peripheral vascular disease, unspecified; I12.9 Hypertensive chronic kidney disease with stage 1 through stage 4 chronic kidney disease, or unspecified chronic kidney disease; N18.3 Chronic kidney disease, stage 3 (moderate); B20 Human immunodeficiency virus [HIV] disease; J45.909 Unspecified asthma, uncomplicated; F32.9 Major depressive disorder, single episode, unspecified; F17.200 Nicotine dependence, unspecified, uncomplicated; Z79.899 Other long term (current) drug therapy; Z98.890 Other specified postprocedural states; Z82.49 Family history of ischemic heart disease and other diseases of the circulatory system; Z86.718 Personal history of other venous thrombosis and embolism; Y83.1 Surgical operation with implant of artificial internal device as the cause of abnormal reaction of the patient, or of later complication, without mention of misadventure at the time of the procedure
CPT/HCPCS: 27886; 36415; 80048; 85025; 93005; 93010; J0690; J1100; J1170; J2175; J2405; J2704; J7030